=== PATIENT | male | born 1940 | race American Indian/Alaskan Native ===

== ENCOUNTER 2019-02-15 19:18 | Inpatient (IN) | payer MEDICARE, MEDICAID ==
--- NOTE | 2019-02-15 19:46 | Emergency Department Report ---
Blank Doc - Documentation Documentation: This is a 79-year-old male that presents with vomiting and diarrhea. This initial assessment/diagnostic orders/clinical plan/treatment(s) is/are subject to change based on patient's health status, clinical progression and re- assessment by fellow clinical providers in the ED. Further treatment and workup at subsequent clinical providers discretion. Patient/guardians urged not to elope from the ED as their condition may be serious if not clinically assessed and managed. Initial orders include: 1- Patient sent to MAIN ED for further evaluation and treatment 2- labs 3- UA
[2019-02-15 20:29] LABS: Basophils # (Auto) 0.1 K/mm3 (0.0-0.1); Basophils % (Auto) 1.1 % (0.0-1.8); Eosinophils # (Auto) 0.1 K/mm3 (0.0-0.4); Eosinophils % (Auto) 1.5 % (0.0-4.3); Hematocrit 34.2 % (35.5-45.6); Hemoglobin 11.6 gm/dl (11.8-15.2); Lymphocytes # (Auto) 0.9 K/mm3 (1.2-5.4); Mean Corpuscular HGB Conc 34 % (32-34); Mean Corpuscular Volume 91 fl (84-94); Platelet Count 288 K/mm3 (140-440); Red Blood Count 3.77 M/mm3 (3.65-5.03); Red Cell Distribution Width 14.6 % (13.2-15.2)
[2019-02-15 20:48] LABS: Alanine Aminotransferase 11 units/L (7-56); Albumin 3.3 g/dL (3.9-5); BUN/Creatinine Ratio 19; Blood Urea Nitrogen 19 mg/dL (9-20); Calcium 8.9 mg/dL (8.4-10.2); Hemolysis Index 8
--- NOTE | 2019-02-15 20:54 | Emergency Department Report ---
ED N/V/D HPI - General Chief complaint: Nausea/Vomiting/Diarrhea Stated complaint: VOMITTING Time Seen by Provider: 02/15/19 20:45 Source: family Mode of arrival: Ambulatory Limitations: Language Barrier, Altered Mental Status, Physical Limitation, Other - History of Present Illness Initial comments: Patient is a 79-year-old male presents emergency room with complaints of nausea vomiting and diarrhea. History per patient's caregiver. Caregiver states the patient had diarrhea 3 one week ago but has not had diarrhea since. Patient nausea and vomiting started 3 days ago. family c/o wt loss. Patient saw his primary care today and Dr. Beverly recommended the patient come here for evaluation. Patient has not tolerated any by mouth. 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 Patient interacts minimally but the patient is at baseline per the patient's caregiver and family. Patient has a past medical history of hypertension, MR, frequent UTIs, BPH, nonverbal and blindness MD complaint: nausea, vomiting, diarrhea -: Sudden Description of Vomiting: watery Associated Abdominal Pain: No Severity: moderate Associated Symptoms: denies other symptoms - Related Data Home Medications Medication Instructions Recorded Confirmed Last Taken Latanoprost 1 drop OU DAILY 03/04/14 02/16/19 03/05/14 Pilocarpine 4% [Isopto Carpine] 1 drop OU DAILY 03/04/14 02/16/19 03/05/14 Previous Rx's Medication Instructions Recorded Last Taken Type Metoprolol [Lopressor TAB] 25 mg PO BID #60 tablet 03/08/14 Unknown Rx Allergies Allergy/AdvReac Type Severity Reaction Status Date / Time No Known Allergies Allergy Verified 03/04/14 14:44 ED Review of Systems ROS: Stated complaint: VOMITTING Other details as noted in HPI Comment: Unobtainable due to pts medical conditions ED Past Medical Hx - Past Medical History Previous Medical History?: Yes Hx Hypertension: Yes Hx Dementia: Yes 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 Hypertension. BPH. Blind - Surgical History Past Surgical History?: Yes Additional Surgical History: TURP - Family History Family history: no significant - Social History Smoking Status: Never Smoker Substance Use Type: None - Medications Home Medications: Home Medications Medication Instructions Recorded Confirmed Last Taken Type Latanoprost 1 drop OU DAILY 03/04/14 02/16/19 03/05/14 History Pilocarpine 4% [Isopto Carpine] 1 drop OU DAILY 03/04/14 02/16/19 03/05/14 History Metoprolol [Lopressor TAB] 25 mg PO BID #60 tablet 03/08/14 02/16/19 Unknown Rx ED Physical Exam - General Limitations: Language Barrier, Altered Mental Status, Physical Limitation, Other General appearance: alert, in no apparent distress - Head Head exam: Present: atraumatic, normocephalic - Eye Eye exam: Present: normal appearance - ENT ENT exam: Present: mucous membranes moist - Neck Neck exam: Present: normal inspection - Respiratory Respiratory exam: Present: normal lung sounds bilaterally. Absent: respiratory distress - Cardiovascular Cardiovascular Exam: Present: regular rate, normal rhythm. Absent: systolic murmur, diastolic murmur, rubs, gallop - GI/Abdominal GI/Abdominal exam: Present: soft, normal bowel sounds. Absent: distended, tenderness - Rectal Rectal exam: Present: deferred - Extremities Exam Extremities exam: Present: normal inspection - Back Exam Back exam: Present: normal inspection - Neurological Exam Neurological exam: Present: altered - Skin Skin exam: Present: warm, dry, intact, normal color. Absent: rash ED Course Vital Signs 02/15/19 02/15/19 02/15/19 19:45 21:36 22:21 Temperature 98 F Pulse Rate 85 Respiratory 18 Rate Blood Pressure 135/71 114/57 O2 Sat by Pulse 96 98 100 Oximetry 02/15/19 02/15/19 02/15/19 22:30 23:00 23:30 Temperature Pulse Rate 80 79 78 Respiratory 19 17 20 Rate Blood Pressure 120/47 122/41 115/52 O2 Sat by Pulse 100 100 100 Oximetry 02/16/19 02/16/19 00:01 00:30 Temperature Pulse Rate 75 81 Respiratory 17 17 Rate Blood Pressure 105/47 127/61 O2 Sat by Pulse 100 99 Oximetry - Reevaluation(s) Reevaluation #1: I discussed all results with family member. I discussed plan of care with family. Family agrees with plan of care. 02/15/19 23:30 - Consultations Consultation #1: General surgery paged 02/15/19 23:26 Discussed case with general surgery, Dr Bell. General surgery recommends admission to the hospitalist service and repeat series in the morning and enemas 02/15/19 23:51 Consultation #2: Hospitalist consulted for admission. Hospitalist to admit patient. 02/15/19 23:52 ED Medical Decision Making - Lab Data Result diagrams: 02/15/19 20:06 02/15/19 20:06 - Radiology Data Radiology results: report reviewed CT ABDOMEN AND PELVIS WITH CONTRAST INDICATION / CLINICAL INFORMATION: Nausea vomiting and diarrhea. TECHNIQUE: Axial CT images were obtained through the abdomen and pelvis after 100 mL Omnipaque [address] scans at this location are performed using CT dose reduction for ALARA by means of automated exposure control. COMPARISON: CT dated 05/09/16 FINDINGS: LOWER CHEST: No significant abnormality. LIVER: No significant abnormality. GALLBLADDER: Multiple tiny calcified stones are unchanged. No gallbladder inflammation. BILE DUCTS: No significant abnormality. PANCREAS: No significant abnormality. SPLEEN: No significant abnormality. ADRENALS: No significant abnormality. RIGHT KIDNEY and URETER: Small nonobstructing intrarenal stone. No ureteral stone or hydronephrosis. LEFT KIDNEY and URETER: No significant abnormality. STOMACH and SMALL BOWEL: Stomach is moderately dilated with fluid and food material. Gastric dilation is not changed. There is new thickening and edema of the gastric antrum/pylorus. Small bowel is not dilated. COLON: Moderate amount of fecal material in the distal colon and rectum with possible rectal fecal impaction. APPENDIX: Not visualized. PERITONEUM: No free fluid. No free air. No fluid collection. LYMPH NODES: No significant adenopathy. AORTA and ARTERIES: No significant abnormality. IVC and VEINS: No significant abnormality. URINARY BLADDER: Bladder is moderately distended with mild trabeculation of the wall. REPRODUCTIVE ORGANS: No significant abnormality. ADDITIONAL FINDINGS: None. SKELETAL SYSTEM: No significant abnormality. IMPRESSION: 1. Moderate amount of fecal material in the distal colon and rectum with possible rectal fecal impaction. 2. Dilated stomach containing fluid and food material with thickening and edema of the gastric antrum and pylorus possibly representing focal gastritis or peptic ulcer disease. 3. Cholelithiasis without CT evidence for cholecystitis. No change. - Medical Decision Making Patient is 79-year-old male presents emergency with complaints of nausea and vomiting 2 days, weight loss and diarrhea one week ago. Patient had a Patient is unable to provide any historical facts due to his altered mentation and language barrier. Patient had a CT done and shows a colonic obstruction and fecal impaction. Patient given fluids and Zofran. General surgery recommends admission and follow-up abdominal series. Gen. surgery also recommends disimpaction with enemas. Patient's labs unremarkable. - Differential Diagnosis intractable nausea and vomiting. Obstruction. Critical Care Time: Yes Critical care attestation.: If time is entered above; I have spent that time in minutes in the direct care of this critically ill patient, excluding procedure time. Critical Care Time: 35 minutes ED Disposition Clinical Impression: Colonic obstruction, Gastroenteritis, Weight loss, Fecal impaction in rectum, Nonverbal Nausea & vomiting Qualifiers: Vomiting type: unspecified Vomiting Intractability: intractable Qualified Code(s): R11.2 - Nausea with vomiting, unspecified Disposition: DC-09 OP ADMIT IP TO THIS HOSP Is pt being admited?: Yes Does the pt Need Aspirin: No Condition: Critical Time of Disposition: 23:52
--- NOTE | 2019-02-15 22:58 | Cat Scan Report ---
CT ABDOMEN AND PELVIS WITH CONTRAST INDICATION / CLINICAL INFORMATION: Nausea vomiting and diarrhea. TECHNIQUE: Axial CT images were obtained through the abdomen and pelvis after 100 mL Omnipaque [address] scans at this location are performed using CT dose reduction for ALARA by means of automated exposure control. COMPARISON: CT dated 05/09/16 FINDINGS: LOWER CHEST: No significant abnormality. LIVER: No significant abnormality. GALLBLADDER: Multiple tiny calcified stones are unchanged. No gallbladder inflammation. BILE DUCTS: No significant abnormality. PANCREAS: No significant abnormality. SPLEEN: No significant abnormality. ADRENALS: No significant abnormality. RIGHT KIDNEY and URETER: Small nonobstructing intrarenal stone. No ureteral stone or hydronephrosis. LEFT KIDNEY and URETER: No significant abnormality. STOMACH and SMALL BOWEL: Stomach is moderately dilated with fluid and food material. Gastric dilation is not changed. There is new thickening and edema of the gastric antrum/pylorus. Small bowel is not dilated. COLON: Moderate amount of fecal material in the distal colon and rectum with possible rectal fecal im paction. APPENDIX: Not visualized. PERITONEUM: No free fluid. No free air. No fluid collection. LYMPH NODES: No significant adenopathy. AORTA and ARTERIES: No significant abnormality. IVC and VEINS: No significant abnormality. URINARY BLADDER: Bladder is moderately distended with mild trabeculation of the wall. REPRODUCTIVE ORGANS: No significant abnormality. ADDITIONAL FINDINGS: None. SKELETAL SYSTEM: No significant abnormality. IMPRESSION: 1. Moderate amount of fecal material in the distal colon and rectum with possible rectal fecal impact ion. 2. Dilated stomach containing fluid and food material with thickening and edema of the gastric antrum and pylorus possibly representing focal gastritis or peptic ulcer disease. 3. Cholelithiasis without CT evidence for cholecystitis. No change. Signer Name: Zaynab Ramirez MD Signed: 02/15/2019 10:53 PM Workstation Name: [id number]
[2019-02-15] MEDS ORDERED: ZOFRAN ONE (23:22)
[2019-02-15] MEDS ORDERED: NACL 0.9% 1000 ML 1,000 ML ONE (23:22)
[2019-02-16] MEDS ORDERED: TYLENOL PO PRN (00:34)
[2019-02-16] MEDS ORDERED: SODIUM CHLORIDE FLUSH SYRINGE 10 ML IV PRN (00:34)
[2019-02-16] MEDS ORDERED: ZOFRAN IV PRN (00:34)
[2019-02-16] MEDS ORDERED: REGLAN IV PRN (00:34)
--- NOTE | 2019-02-16 00:40 | History and Physical Report ---
History of Present Illness Date of examination: 02/16/19 Date of admission: 02/16/2019 Chief complaint: Nausea, vomiting and diarrhea History of present illness: Patient is a 79-year-old male with PMHx of glaucoma and blindness, Mental retardation, HTN, kidney stones, gall stones, who was brought to the ER with c/o nausea, vomiting and diarrhea x 1 week. Pt is nonverbal therefore cannot provide medical, the history was given by the patient's caregiver who reports the patient had diarrhea 3 times one week ago. The certified caregiver add that the started vomiting started 3 days ago, and had a total of 5 lbs wt loss within 1 week. According to the certified caregiver, pt had not been able to tolerate any PO intake, he was taking to see his PCP (Dr. Beverly) yesterday who recommended that the patient come to the ER for evaluation. Patient has not tolerated any by mouth. In the ER a CT scan of the abdomen showed a moderate amount of fecal material in the distal colon and rectum, possible fecal impaction. Dilated stomach containing fluid and food material with thickening and edema of the gastric antrum and pylori. Pt was initially treated in the ER and admitted for further evaluation and treatment. Past History Past Medical History: hypertension, other (MR, BPH, kidney stones) Past Surgical History: Other (TURP) Social history: no significant social history Family history: no significant family history Medications and Allergies Allergies Allergy/AdvReac Type Severity Reaction Status Date / Time No Known Allergies Allergy Verified 03/04/14 14:44 Home Medications Medication Instructions Recorded Confirmed Last Taken Type Latanoprost 1 drop OU DAILY 03/04/14 02/16/19 03/05/14 History Pilocarpine 4% [Isopto Carpine] 1 drop OU DAILY 03/04/14 02/16/19 03/05/14 History Metoprolol [Lopressor TAB] 25 mg PO BID #60 tablet 03/08/14 02/16/19 Unknown Rx Active Meds: Active Medications Enoxaparin Sodium (Lovenox) 30 mg SUB-Q QDAY EDOUARD Review of Systems ROS unobtainable: due to mental status Exam - Constitutional Vitals: Temp Pulse Resp BP Pulse Ox 98 F 85 18 135/71 96 02/15/19 19:45 02/15/19 19:45 02/15/19 19:45 02/15/19 19:45 02/15/19 19:45 General appearance: Present: no acute distress - Respiratory Respiratory: bilateral: CTA - Cardiovascular Heart Sounds: Present: S1 & S2 - Extremities Extremities: no ischemia, No edema Peripheral Pulses: within normal limits - Abdominal General gastrointestinal: Present: soft, non-tender Male genitourinary: Present: deferred - Rectal Rectal Exam: deferred - Integumentary Integumentary: Present: clear, warm, dry - Musculoskeletal Musculoskeletal: strength equal bilaterally - Psychiatric Psychiatric: other (unable to evaluate) - Neurologic Neurologic: other (unable to evaluate) Results - Labs CBC & Chem 7: 02/15/19 20:06 02/15/19 20:06 Labs: Laboratory Last Values WBC 6.4 K/mm3 (4.5-11.0) 02/15/19 20:06 RBC 3.77 M/mm3 (3.65-5.03) 02/15/19 20:06 Hgb 11.6 gm/dl (11.8-15.2) L 02/15/19 20:06 Hct 34.2 % (35.5-45.6) L 02/15/19 20:06 MCV 91 fl (84-94) 02/15/19 20:06 MCH 31 pg (28-32) 02/15/19 20:06 MCHC 34 % (32-34) 02/15/19 20:06 RDW 14.6 % (13.2-15.2) 02/15/19 20:06 Plt Count 288 K/mm3 (140-440) 02/15/19 20:06 Lymph % (Auto) 14.0 % (13.4-35.0) 02/15/19 20:06 [place] % (Auto) 15.0 % (0.0-7.3) H 02/15/19 20:06 Eos % (Auto) 1.5 % (0.0-4.3) 02/15/19 20:06 Baso % (Auto) 1.1 % (0.0-1.8) 02/15/19 20:06 Lymph # 0.9 K/mm3 (1.2-5.4) L 02/15/19 20:06 [place] # 1.0 K/mm3 (0.0-0.8) H 02/15/19 20:06 Eos # 0.1 K/mm3 (0.0-0.4) 02/15/19 20:06 Baso # 0.1 K/mm3 (0.0-0.1) 02/15/19 20:06 Seg Neutrophils % 68.4 % (40.0-70.0) 02/15/19 20:06 Seg Neutrophils # 4.4 K/mm3 (1.8-7.7) 02/15/19 20:06 Sodium 136 mmol/L (137-145) L 02/15/19 20:06 Potassium 3.9 mmol/L (3.6-5.0) 02/15/19 20:06 Chloride 99.2 mmol/L (98-107) 02/15/19 20:06 Carbon Dioxide 27 mmol/L (22-30) 02/15/19 20:06 14 mmol/L 02/15/19 20:06 BUN 19 mg/dL (9-20) 02/15/19 20:06 1.0 mg/dL (0.8-1.5) 02/15/19 20:06 Estimated GFR > 60 ml/min 02/15/19 20:06 19 % 02/15/19 20:06 Glucose 156 mg/dL (75-100) H 02/15/19 20:06 Calcium 8.9 mg/dL (8.4-10.2) 02/15/19 20:06 0.40 mg/dL (0.1-1.2) 02/15/19 20:06 AST 22 units/L (5-40) 02/15/19 20:06 ALT 11 units/L (7-56) 02/15/19 20:06 67 units/L (35-129) 02/15/19 20:06 6.7 g/dL (6.3-8.2) 02/15/19 20:06 3.3 g/dL (3.9-5) L 02/15/19 20:06 1.0 % 02/15/19 20:06 30 units/L (13-60) 02/15/19 20:06 Assessment and Plan Assessment and plan: 1. Fecal impaction 2. Acute gastritis 3. Nausea and vomiting (due to #1 and 2) 4. Blindness 5. Mental retardation 6. Cholelithiasis 7. Hypertension (stable) 8. Dehydration Plan: Admit to MedSurg Fleet enema/digital removable of impaction PRN IV fluids for hydration Clear liquid diet Resume home meds DVT prophylaxis Patient's plan of care discussed with certified caregiver Patient's condition and plan of care d/w Dr Rg Advance Directives: Yes VTE prophylaxis?: Chemical Plan of care discussed with patient/family: Yes
[2019-02-16] MEDS: PEPCID IV SCH ×2 (02:10→10:02)
[2019-02-16] MEDS: NACL 0.9% 1000 ML 1,000 ML IV SCH ×2 (03:21→19:48)
[2019-02-16] MEDS ORDERED: FLEET PR NR (05:50)
[2019-02-16] MEDS ORDERED: MILK OF MAGNESIA PO NR (05:51)
[2019-02-16] MEDS ORDERED: NACL 0.9% 1000 ML 1,000 ML IV SCH (06:00)
[2019-02-16 07:21] LABS: Bacteria,Urine 1+ /HPF (Negative); Bilirubin,Urine NEG (Negative); Blood,Urine SM (Negative); Color,Urine Yellow (Yellow); Mucus,Urine FEW /HPF; Protein,Urine <15 mg/dL mg/dL (Negative)
--- NOTE | 2019-02-16 09:08 | XRay Report ---
ABDOMINAL SERIES WITH CHEST X-RAY ONE VIEW HISTORY: Fecal and reaction FINDINGS: The stomach appears dilated. Small bowel loops and colon are normal caliber. There is mild fecal retention in the distal colon and rectum but this appears decreased by 50% since yesterday's CT . No evidence for free air or large air-fluid levels. Single view of the chest is unremarkable given rotation to the right. IMPRESSION: Decreased fecal retention by 50%. Dilated stomach Signer Name: George Burt Jr, MD Signed: 02/16/2019 9:04 AM Workstation Name: [id number]
[2019-02-16] MEDS ORDERED: SENOKOT PO SCH (10:00)
[2019-02-16] MEDS ORDERED: LOVENOX SUB-Q SCH (10:00)
[2019-02-16] MEDS: LOPRESSOR PO SCH ×2 (10:02→21:28)
[2019-02-16] MEDS: LOVENOX SUB-Q SCH (10:02)
[2019-02-16] MEDS: SODIUM CHLORIDE FLUSH SYRINGE 10 ML IV SCH ×2 (10:03→21:28)
[2019-02-16] MEDS: ISOPTO CARPINE OU SCH (10:04)
--- NOTE | 2019-02-16 10:31 | Progress Note ---
Assessment and Plan Full consult dictated: 79 y/o Mentally retarded male c/o N&V Abd soft, non tender at present. CT - enlarged stomach with large amount of food debris. no evidence of gastric outlet. also consistent with fecal impaction. surgically stable rec: NPO NG suction. enemas until clear GI eval for possible EGD will follow Chief complaint: Nausea, vomiting and diarrhea History of present illness: Patient is a 79-year-old male with PMHx of glaucoma and blindness, Mental brian rdation, HTN, kidney stones, gall stones, who was brought to the ER with c/o nausea, vomiting and diarrhea x 1 week. Pt is nonverbal therefore cannot provide medical, the history was given by the patient's caregiver who reports the patient had diarrhea 3 times one week ago. The direct support professional caregiver add that the started vomiting started 3 days ago, and had a total of 5 lbs wt loss within 1 week. According to the direct support professional caregiver, pt had not been able to tolerate any PO intake, he was taking to see his PCP (Dr. Beverly) yesterday who recommended that the patient come to the ER for evaluation. Patient has not tolerated any by mouth. In the ER a CT scan of the abdomen showed a moderate amount of fecal material in the distal colon and rectum, possible fecal impaction. Dilated stomach containing fluid and food material with thickening and edema of the gastric antrum and pylori. Pt was initially treated in the ER and admitted for further evaluation and treatment. Past History Past Medical History: hypertension, other (MR, BPH, kidney stones) Past Surgical History: Other (TURP) Social history: no significant social history Family history: no significant family history Selected Entries 02/16/19 02/16/19 02/16/19 08:00 08:03 09:38 Temperature 97.3 F L Pulse Rate 100 H O2 Sat by Pulse 98 Oximetry Blood Pressure 120/53 [Left] Laboratory Tests 02/15/19 20:06 WBC 6.4 Hgb 11.6 L Hct 34.2 L Objective Vital Signs - 12hr 02/15/19 02/15/19 02/15/19 22:30 23:00 23:30 Temperature Pulse Rate 80 79 78 Respiratory 19 17 20 Rate Blood Pressure 120/47 122/41 115/52 Blood Pressure [Left] O2 Sat by Pulse 100 100 100 Oximetry 02/16/19 02/16/1919 00:01 00:30 00:51 Temperature Pulse Rate 75 81 73 Respiratory 17 17 15 Rate Blood Pressure 105/47 127/61 127/61 Blood Pressure [Left] O2 Sat by Pulse 100 99 99 Oximetry 02/16/19 02/16/19 02/16/19 01:01 01:11 01:21 Temperature Pulse Rate 77 69 72 Respiratory 16 16 17 Rate Blood Pressure 92/49 92/49 92/49 Blood Pressure [Left] O2 Sat by Pulse 100 100 100 Oximetry 02/16/19 02/16/19 02/16/19 01:25 01:30 01:41 Temperature Pulse Rate 71 80 Respiratory 16 20 15 Rate Blood Pressure 133/54 92/49 Blood Pressure [Left] O2 Sat by Pulse 99 100 99 Oximetry 02/16/19 02/16/19 02/16/19 01:51 02:01 02:11 Temperature Pulse Rate 67 82 75 Respiratory 18 17 15 Rate Blood Pressure 92/49 97/37 133/54 Blood Pressure [Left] O2 Sat by Pulse 99 98 99 Oximetry 02/16/19 02/16/19 02/16/19 02:40 08:00 08:03 Temperature 97.3 F L 97.3 F L Pulse Rate 85 100 H Respiratory 22 22 Rate Blood Pressure 119/66 120/53 Blood Pressure 120/53 [Left] O2 Sat by Pulse 100 98 Oximetry 02/16/19 09:38 Temperature Pulse Rate Respiratory Rate Blood Pressure Blood Pressure [Left] O2 Sat by Pulse 98 Oximetry - Labs 02/15/19 20:06 02/15/19 20:06 Diabetes panel 02/15/19 Range/Units 20:06 Sodium 136 L (137-145) mmol/L Potassium 3.9 (3.6-5.0) mmol/L Chloride 99.2 (98-107) mmol/L Carbon Dioxide 27 (22-30) mmol/L BUN 19 (9-20) mg/dL Creatinine 1.0 (0.8-1.5) mg/dL Glucose 156 H (75-100) mg/dL Calcium 8.9 (8.4-10.2) mg/dL AST 22 (5-40) units/L ALT 11 (7-56) units/L Alkaline Phosphatase 67 (35-129) units/L Total Protein 6.7 (6.3-8.2) g/dL Albumin 3.3 L (3.9-5) g/dL Calcium panel 02/15/19 Range/Units 20:06 Calcium 8.9 (8.4-10.2) mg/dL Albumin 3.3 L (3.9-5) g/dL Pituitary panel 02/15/19 Range/Units 20:06 Sodium 136 L (137-145) mmol/L Potassium 3.9 (3.6-5.0) mmol/L Chloride 99.2 (98-107) mmol/L Carbon Dioxide 27 (22-30) mmol/L BUN 19 (9-20) mg/dL Creatinine 1.0 (0.8-1.5) mg/dL Glucose 156 H (75-100) mg/dL Calcium 8.9 (8.4-10.2) mg/dL Adrenal panel 02/15/19 Range/Units 20:06 Sodium 136 L (137-145) mmol/L Potassium 3.9 (3.6-5.0) mmol/L Chloride 99.2 (98-107) mmol/L Carbon Dioxide 27 (22-30) mmol/L BUN 19 (9-20) mg/dL Creatinine 1.0 (0.8-1.5) mg/dL Glucose 156 H (75-100) mg/dL Calcium 8.9 (8.4-10.2) mg/dL Total Bilirubin 0.40 (0.1-1.2) mg/dL AST 22 (5-40) units/L ALT 11 (7-56) units/L Alkaline Phosphatase 67 (35-129) units/L Total Protein 6.7 (6.3-8.2) g/dL Albumin 3.3 L (3.9-5) g/dL
[2019-02-16] MEDS ORDERED: FLEET PR ONE (12:30)
--- NOTE | 2019-02-16 14:09 | Gastroenterology Consultation ---
History of Present Illness - Reason for Consult Consult date: 02/16/19 gastric stasis Requesting physician: BRENDEN BASURTO - History of Present Illness Patient is a 79 y/o male with PMH of HTN, glaucoma/blindness, mental retardation, kidney stones, BPH, and gallstones who was brought to ED for evaluation of N/V, diarrhea, and inability to tolerate PO x 1 week. Upon admi ssion, abd CT showed a moderate amount of fecal material in the distal colon/rectum, possible fecal impaction, and dilated stomach containing fluid/food material with thickening and edema of the gastric antrum/pylorus (focal gastritis vs PUD?) to which GI has been consulted. Surgery following. This afternoon patient was resting in bed w/o acute distress. Patient noted to be nonverbal and unable to provide history. History obtained via chart review and by caregiver (Tom) over the phone. CG reports patient usually has ~2 BMs per day, but states that he had a similar episode with constipation last year requiring hospitalization, however patient was not discharged with any recommendations for daily bowel regimen medications. No NSAID use or hx of PUD. No known prior EGD. Last colonoscopy unknown. Per nursing, patient has received enemas x 3 with good results (last BM with large solid stool; no signs of bleeding; tolerated diet this am w/o N/V). Past History Past Medical History: other (as per HPI) Past Surgical History: Other (TURP) Social history: no significant social history, other ([facility] resident) Family history: no significant family history Medications and Allergies Allergies Allergy/AdvReac Type Severity Reaction Status Date / Time No Known Allergies Allergy Verified 03/04/14 14:44 Home Medications Medication Instructions Recorded Confirmed Last Taken Type Latanoprost 1 drop OU DAILY 03/04/14 02/16/19 03/05/14 History Pilocarpine 4% [Isopto Carpine] 1 drop OU DAILY 03/04/14 02/16/19 03/05/14 History Metoprolol [Lopressor TAB] 25 mg PO BID #60 tablet 03/08/14 02/16/19 Unknown Rx Active Meds: Active Medications Enoxaparin Sodium (Lovenox) 40 mg SUB-Q QDAY@1000 [facility] Last Admin: 02/16/19 10:02 Dose: 40 mg Documented by: Famotidine (Pepcid) 20 mg IV BID [facility] Last Admin: 02/16/19 10:02 Dose: 20 mg Documented by: Sodium Chloride (Nacl 0.9% 1000 Ml) 1,000 mls @ 75 mls/hr IV DIRECT [facility] Last Admin: 02/16/19 03:21 Dose: 75 mls/hr Documented by: Latanoprost (Latanoprost 0.005%) 1 drops OU QPM [facility] Metoclopramide HCl (Reglan) 10 mg IV Q6H PRN PRN Reason: Nausea And Vomiting Metoprolol Tartrate (Lopressor) 25 mg PO BID [facility] Last Admin: 02/16/19 10:02 Dose: 25 mg Documented by: Ondansetron HCl (Zofran) 4 mg IV Q8H PRN PRN Reason: Nausea And Vomiting Pilocarpine HCl (Isopto Carpine) 1 drops OU DAILY [facility] Last Admin: 02/16/19 10:04 Dose: 1 drops Documented by: Sodium Chloride (Sodium Chloride Flush Syringe 10 Ml) 10 ml IV BID [facility] Last Admin: 02/16/19 10:03 Dose: 10 ml Documented by: Sodium Chloride (Sodium Chloride Flush Syringe 10 Ml) 10 ml IV PRN PRN PRN Reason: LINE FLUSH medications review/updated as required Review of Systems - Review of Systems ROS unobtainable: due to mental status Exam - Constitutional Vital Signs: Temp Pulse Resp BP Pulse Ox 97.3 F L 104 H 22 120/53 98 02/16/19 08:03 02/16/19 10:00 02/16/19 08:03 02/16/19 08:03 02/16/19 09:38 General appearance: no acute distress - Respiratory Respiratory effort: normal - Cardiovascular Rhythm: other (tachycardia) - Gastrointestinal General gastrointestinal: Present: soft, distended (mildly), hypoactive bowel sounds - Labs CBC & Chem 7: 02/15/19 20:06 02/15/19 20:06 Lab Results: Laboratory Results - last 24 hr 02/15/19 02/15/19 02/16/19 20:06 20:06 02:00 WBC 6.4 RBC 3.77 Hgb 11.6 L Hct 34.2 L MCV 91 MCH 31 MCHC 34 RDW 14.6 Plt Count 288 Lymph % (Auto) 14.0 [place] % (Auto) 15.0 H Eos % (Auto) 1.5 Baso % (Auto) 1.1 Lymph # 0.9 L [place] # 1.0 H Eos # 0.1 Baso # 0.1 Seg Neutrophils % 68.4 Seg Neutrophils # 4.4 Sodium 136 L Potassium 3.9 Chloride 99.2 Carbon Dioxide 27 Anion Gap 14 BUN 19 Creatinine 1.0 Estimated GFR > 60 BUN/Creatinine Ratio 19 Glucose 156 H Calcium 8.9 Total Bilirubin 0.40 AST 22 ALT 11 Alkaline Phosphatase 67 Total Protein 6.7 Albumin 3.3 L Albumin/Globulin Ratio 1.0 Lipase 30 Urine Color Yellow Urine Turbidity Slightly-cloudy Urine pH 6.0 Ur Specific [place] 1.034 H Urine Protein <15 mg/dl Urine Glucose (UA) Neg Urine Ketones Neg Urine Blood Sm Urine Nitrite Neg Urine Bilirubin Neg Urine Urobilinogen 2.0 Ur Leukocyte Esterase Tr Urine WBC (Auto) 22.0 H Urine RBC (Auto) 13.0 U Epithel Cells (Auto) 3.0 Urine Bacteria (Auto) 1+ Urine Mucus Few Urine Yeast (Budding) 1+ Assessment and Plan 1.fecal impaction/constipation 2.abnormal CT -afebrile -WBC WNL -H/H 11.6/34.2-no active signs of bleeding -LFTs WNL -abd CT showed a moderate amount of fecal material in the distal colon/rectum, possible fecal impaction, and dilated stomach containing fluid/food material with thickening and edema of the gastric antrum/pylorus (focal gastritis vs PUD?) -s/p enemas x 3 with good results per nursing -KUMariana this am with improvement -surgery following with recommendations for NPO with placement of NGT to LIS and enemas til clear -will schedule for EGD tomorrow for further evaluation of above CT results (r/o GOO, PUD, or other GI pathology) -continue PPI and supportive care -patient will need to be on daily bowel regimen for constipation upon d/c -will follow
--- NOTE | 2019-02-16 16:05 | Progress Note ---
Assessment and Plan Assessment and plan: Patient is a 79-year-old male with PMHx of glaucoma and blindness, Mental retardation, HTN, kidney stones, gall stones, who was brought to the ER with c/o nausea, vomiting and diarrhea x 1 week. Pt is nonverbal therefore cannot provide medical, the history was given by the patient's caregiver who reports the patient had diarrhea 3 times one week ago. The child care giver add that the started vomiting started 3 days ago, and had a total of 5 lbs wt loss within 1 week. According to the child care giver, pt had not been able to tolerate any PO intake, he was taking to see his PCP (Dr. Beverly) yesterday who recommended that the patient come to the ER for evaluation. Patient has not tolerated any by mouth. In the ER a CT scan of the abdomen showed a moderate amount of fecal material in the distal colon and rectum, possible fecal impaction. Dilated stomach containing fluid and food material with thickening and edema of the gastric antrum and pylori. Pt was initially treated in the ER and admitted for further evaluation and treatment. * Abd CT showed a moderate amount of fecal material in the distal colon/rectum, possible fecal impaction, and dilated stomach containing fluid/food material with thickening and edema of the gastric antrum/pylorus (focal gastritis vs PUD? 1. Fecal impaction 2. Acute gastritis 3. Nausea and vomiting (due to #1 and 2) 4. Blindness 5. Mental retardation 6. Cholelithiasis 7. Hypertension (stable) 8. Dehydration 9. Acute Cystitis Plan: Continue supportive care Fleet enema/digital removable of impaction PRN Surgery and GI input noted IV fluids for hydration Start on abx. Clear liquid diet NPO with placement of NGT to LIS and enemas til clear Per GI Will schedule for EGD tomorrow for further evaluation of above CT results (r/o GOO, PUD, or other GI pathology) Resume home meds DVT prophylaxis Patient's plan of care discussed with child care giver s/p enemas x 3 with good results per nursing KUB this am with improvement Discussed with [facility] staff. History Interval history: Patient seen and examined, confused, which is baseline. Hospitalist Physical - Physical exam Narrative exam: General appearance: Present: no acute distress, Contracted - Respiratory Respiratory: bilateral: CTA - Cardiovascular Heart Sounds: Present: S1 & S2 - Extremities Extremities: no ischemia, No edema Peripheral Pulses: within normal limits - Abdominal General gastrointestinal: Present: soft, non-tender Male genitourinary: Present: deferred - Rectal Rectal Exam: deferred - Integumentary Integumentary: Present: clear, warm, dry - Musculoskeletal Musculoskeletal: strength equal bilaterally - Psychiatric Psychiatric: other (unable to evaluate) - Neurologic Neurologic: other (unable to evaluate) - Constitutional Vitals: Temp Pulse Resp BP Pulse Ox 97.3 F L 104 H 22 120/53 98 02/16/19 08:03 02/16/19 10:00 02/16/19 08:03 02/16/19 08:03 02/16/19 09:38 General appearance: Present: no acute distress Results - Labs CBC & Chem 7: 02/15/19 20:06 02/15/19 20:06 Labs: Laboratory Last Values WBC 6.4 K/mm3 (4.5-11.0) 02/15/19 20:06 RBC 3.77 M/mm3 (3.65-5.03) 02/15/19 20:06 Hgb 11.6 gm/dl (11.8-15.2) L 02/15/19 20:06 Hct 34.2 % (35.5-45.6) L 02/15/19 20:06 MCV 91 fl (84-94) 02/15/19 20:06 MCH 31 pg (28-32) 02/15/19 20:06 MCHC 34 % (32-34) 02/15/19 20:06 RDW 14.6 % (13.2-15.2) 02/15/19 20:06 Plt Count 288 K/mm3 (140-440) 02/15/19 20:06 Lymph % (Auto) 14.0 % (13.4-35.0) 02/15/19 20:06 [place] % (Auto) 15.0 % (0.0-7.3) H 02/15/19 20:06 Eos % (Auto) 1.5 % (0.0-4.3) 02/15/19 20:06 Baso % (Auto) 1.1 % (0.0-1.8) 02/15/19 20:06 Lymph # 0.9 K/mm3 (1.2-5.4) L 02/15/19 20:06 [place] # 1.0 K/mm3 (0.0-0.8) H 02/15/19 20:06 Eos # 0.1 K/mm3 (0.0-0.4) 02/15/19 20:06 Baso # 0.1 K/mm3 (0.0-0.1) 02/15/19 20:06 Seg Neutrophils % 68.4 % (40.0-70.0) 02/15/19 20:06 Seg Neutrophils # 4.4 K/mm3 (1.8-7.7) 02/15/19 20:06 Sodium 136 mmol/L (137-145) L 02/15/19 20:06 Potassium 3.9 mmol/L (3.6-5.0) 02/15/19 20:06 Chloride 99.2 mmol/L (98-107) 02/15/19 20:06 Carbon Dioxide 27 mmol/L (22-30) 02/15/19 20:06 14 mmol/L 02/15/19 20:06 BUN 19 mg/dL (9-20) 02/15/19 20:06 1.0 mg/dL (0.8-1.5) 02/15/19 20:06 Estimated GFR > 60 ml/min 02/15/19 20:06 19 % 02/15/19 20:06 Glucose 156 mg/dL (75-100) H 02/15/19 20:06 Calcium 8.9 mg/dL (8.4-10.2) 02/15/19 20:06 0.40 mg/dL (0.1-1.2) 02/15/19 20:06 AST 22 units/L (5-40) 02/15/19 20:06 ALT 11 units/L (7-56) 02/15/19 20:06 67 units/L (35-129) 02/15/19 20:06 6.7 g/dL (6.3-8.2) 02/15/19 20:06 3.3 g/dL (3.9-5) L 02/15/19 20:06 1.0 % 02/15/19 20:06 30 units/L (13-60) 02/15/19 20:06 Yellow (Yellow) 02/16/19 02:00 Slightly-cloudy (Clear) 02/16/19 02:00 6.0 (5.0-7.0) 02/16/19 02:00 Ur Specific [place] 1.034 (1.003-1.030) H 02/16/19 02:00 <15 mg/dl mg/dL (Negative) 02/16/19 02:00 Neg mg/dL (Negative) 02/16/19 02:00 Neg mg/dL (Negative) 02/16/19 02:00 Sm (Negative) 02/16/19 02:00 Neg (Negative) 02/16/19 02:00 Neg (Negative) 02/16/19 02:00 2.0 mg/dL (<2.0) 02/16/19 02:00 Ur Leukocyte Esterase Tr (Negative) 02/16/19 02:00 22.0 /HPF (0.0-6.0) H 02/16/19 02:00 13.0 /HPF (0.0-6.0) 02/16/19 02:00 U Epithel Cells (Auto) 3.0 /HPF (0-13.0) 02/16/19 02:00 1+ /HPF (Negative) 02/16/19 02:00 Few /HPF 02/16/19 02:00 1+ /HPF 02/16/19 02:00 Active Medications - Current Medications Current Medications: Generic Name Dose Route Start Last Admin Trade Name Freq PRN Reason Stop Dose Admin Enoxaparin Sodium 40 mg 02/16/19 10:00 02/16/19 10:02 Lovenox SUB-Q 40 mg QDAY@1000 [facility] Administration Famotidine 20 mg 02/16/19 01:00 02/16/19 10:02 Pepcid IV 20 mg BID [facility] Administration Sodium Chloride 1,000 mls @ 75 mls/hr 02/16/19 01:00 02/16/19 03:21 Nacl 0.9% 1000 Ml IV 75 mls/hr DIRECT [facility] Administration Latanoprost 1 drops 02/16/19 18:00 Latanoprost 0.005% OU QPM [facility] Metoclopramide HCl 10 mg 02/16/19 00:34 Reglan IV Q6H PRN Nausea And Vomiting Metoprolol Tartrate 25 mg 02/16/19 10:00 02/16/19 10:02 Lopressor PO 25 mg BID [facility] Administration Ondansetron HCl 4 mg 02/16/19 00:34 Zofran IV Q8H PRN Nausea And Vomiting Pilocarpine HCl 1 drops 02/16/19 10:00 02/16/19 10:04 Isopto Carpine OU 1 drops DAILY [facility] Administration Sodium Chloride 10 ml 02/16/19 10:00 02/16/19 10:03 Sodium Chloride Flush Syringe 10 Ml IV 10 ml BID [facility] Administration Sodium Chloride 10 ml 02/16/19 00:34 Sodium Chloride Flush Syringe 10 Ml IV PRN PRN LINE FLUSH
--- NOTE | 2019-02-16 17:11 | Consultation ---
REASON FOR CONSULTATION: Nausea and vomiting. Also rule out possible fecal impaction. HISTORY OF PRESENT ILLNESS: The patient is a 79-year-old mentally retarded blind gentleman who is being admitted through the ER with a chief complaint of nausea and vomiting and some diarrhea. The patient's history is being obtained through his caregiver. PAST MEDICAL HISTORY: Again pertinent for blindness as well as hypertension, mental retardation, and glaucoma. PAST SURGICAL HISTORY: Negative. ALLERGIES: No known allergies. MEDICATIONS: Include eyedrops and metoprolol. FAMILY HISTORY: Unknown. SOCIAL HISTORY: No smoking or drinking. PHYSICAL EXAMINATION: GENERAL: At this time reveals the patient to be awake and alert, appears to be in no acute distress. VITAL SIGNS: Shown to be afebrile with a temperature of 97.3, blood pressure is 120/53, pulse of 85 and respirations of 20. ABDOMEN: Examination of the abdomen reveals to be soft and nontender in all 4 quadrants at this time. Bowel sounds are present. LABORATORY DATA: Lab work at present includes a CBC, which shows a white count of 6.4, H and H is 11.6 and 34.2. Electrolytes were all within normal limits including a potassium of 3.9. LFTs are also all within normal limits. Lipase is also normal at 30. A CT scan of the abdomen has been performed, which I have reviewed with the radiologist Dr. Burt. Stomach is quite dilated and thickened. There is also a large amount of debris within the gastric lumen. There is, however, no evidence of any gastric outlet obstruction. CT also shows a significant amount of stool throughout the colon including the rectosigmoid area. IMPRESSION: 1. At this time is that of a 79-year-old mentally retarded blind gentleman with recent onset of nausea and vomiting, rule out fecal impaction. 2. Rule out gastroparesis versus possible peptic ulcer disease or gastric outlet obstruction. RECOMMENDATIONS: At this time, would keep the patient n.p.o., begin NG suction. Also give enemas until clear. We will obtain GI evaluation for possible EGD. I will follow with you. Thank you very much for consultation. JOB# [id number] JOSE RAFAEL/MICHELLE
[2019-02-16] MEDS: ROCEPHIN/NS 1 GM/50 ML 1 GM/50 ML BAG IV SCH (19:48)
[2019-02-16] MEDS: LATANOPROST 0.005% OU SCH (20:02)
[2019-02-16] MEDS: PROTONIX IV SCH (21:28)
[2019-02-17 06:27] LABS: INR 1.06 (0.87-1.13)
--- NOTE | 2019-02-17 08:48 | XRay Report ---
ABDOMINAL SERIES 3 VIEWS INDICATION: sbo. COMPARISON: One day prior. FINDINGS: Esophagogastric tube has been placed. The tip is in the stomach with side port at the diaphragmatic h iatus. No acute findings are seen on the included chest radiograph. Diffuse colonic distention is again noted. Large amount of fecal material is noted at the rectum. Mil dly dilated loops of small bowel are again noted. No definite free air is identified. IMPRESSION: 1. Interval placement of esophagogastric tube. 2. Diffuse colonic distention with probable rectal fecal impaction. 3. If there is clinical concern for free air, lateral decubitus view would be useful. Signer Name: Sandor Gabriel MD Signed: 02/17/2019 8:44 AM Workstation Name: [id number]
[2019-02-17] MEDS: ROCEPHIN/NS 1 GM/50 ML 1 GM/50 ML BAG IV SCH (09:36)
[2019-02-17] MEDS: PROTONIX IV SCH ×2 (09:38→21:22)
[2019-02-17] MEDS: ISOPTO CARPINE OU SCH (09:38)
--- NOTE | 2019-02-17 09:39 | Progress Note ---
Assessment and Plan Assessment and plan: Patient is a 79-year-old male with PMHx of glaucoma and blindness, Mental retardation, HTN, kidney stones, gall stones, who was brought to the ER with c/o nausea, vomiting and diarrhea x 1 week. Pt is nonverbal therefore cannot provide medical, the history was given by the patient's caregiver who reports the patient had diarrhea 3 times one week ago. The home day care provider add that the started vomiting started 3 days ago, and had a total of 5 lbs wt loss within 1 week. According to the home day care provider, pt had not been able to tolerate any PO intake, he was taking to see his PCP (Dr. Beverly) yesterday who recommended that the patient come to the ER for evaluation. Patient has not tolerated any by mouth. In the ER a CT scan of the abdomen showed a moderate amount of fecal material in the distal colon and rectum, possible fecal impaction. Dilated stomach containing fluid and food material with thickening and edema of the gastric antrum and pylori. Pt was initially treated in the ER and admitted for further evaluation and treatment. * Abd CT showed a moderate amount of fecal material in the distal colon/rectum, possible fecal impaction, and dilated stomach containing fluid/food material with thickening and edema of the gastric antrum/pylorus (focal gastritis vs PUD? 1. Fecal impaction/Severe Constipation 2. Acute gastritis 3. Nausea and vomiting (due to #1 and 2) 4. Blindness 5. Mental retardation 6. Cholelithiasis 7. Hypertension (stable) 8. Dehydration 9. Acute Cystitis Plan: Continue supportive care Fleet enema/digital removable of impaction PRN Surgery and GI input noted bd CT showed a moderate amount of fecal material in the distal colon/rectum, possible fecal impaction, and dilated stomach containing fluid/food material with thickening and edema of the gastric antrum/pylorus (focal gastritis vs PUD?) Continue enema EGD for am keep NPO with placement of NGT to LIS and enemas til clear Resume home meds DVT prophylaxis Patient's plan of care discussed with home day care provider s/p enemas x 3 with good results per nursing KUB this am with improvement Discussed with Personal custodial staff. History Interval history: Patient seen and examined, confused, which is baseline. although caregiver states patient able to give his own consent Hospitalist Physical - Physical exam Narrative exam: General appearance: Present: no acute distress, Contracted - Respiratory Respiratory: bilateral: CTA - Cardiovascular Heart Sounds: Present: S1 & S2 - Extremities Extremities: no ischemia, No edema Peripheral Pulses: within normal limits - Abdominal General gastrointestinal: Present: soft, non-tender Male genitourinary: Present: deferred - Rectal Rectal Exam: deferred - Integumentary Integumentary: Present: clear, warm, dry - Musculoskeletal Musculoskeletal: strength equal bilaterally - Psychiatric Psychiatric: other (unable to evaluate) - Neurologic Neurologic: other (unable to evaluate) - Constitutional Vitals: Temp Pulse Resp BP Pulse Ox 100.0 F H 102 H 18 120/66 95 02/17/19 07:42 02/17/19 07:42 02/17/19 07:42 02/17/19 07:42 02/17/19 09:00 General appearance: Present: no acute distress Results - Labs CBC & Chem 7: 02/15/19 20:06 02/15/19 20:06 Labs: Laboratory Last Values WBC 6.4 K/mm3 (4.5-11.0) 02/15/19 20:06 RBC 3.77 M/mm3 (3.65-5.03) 02/15/19 20:06 Hgb 11.6 gm/dl (11.8-15.2) L 02/15/19 20:06 Hct 34.2 % (35.5-45.6) L 02/15/19 20:06 MCV 91 fl (84-94) 02/15/19 20:06 MCH 31 pg (28-32) 02/15/19 20:06 MCHC 34 % (32-34) 02/15/19 20:06 RDW 14.6 % (13.2-15.2) 02/15/19 20:06 Plt Count 288 K/mm3 (140-440) 02/15/19 20:06 Lymph % (Auto) 14.0 % (13.4-35.0) 02/15/19 20:06 [place] % (Auto) 15.0 % (0.0-7.3) H 02/15/19 20:06 Eos % (Auto) 1.5 % (0.0-4.3) 02/15/19 20:06 Baso % (Auto) 1.1 % (0.0-1.8) 02/15/19 20:06 Lymph # 0.9 K/mm3 (1.2-5.4) L 02/15/19 20:06 [place] # 1.0 K/mm3 (0.0-0.8) H 02/15/19 20:06 Eos # 0.1 K/mm3 (0.0-0.4) 02/15/19 20:06 Baso # 0.1 K/mm3 (0.0-0.1) 02/15/19 20:06 Seg Neutrophils % 68.4 % (40.0-70.0) 02/15/19 20:06 Seg Neutrophils # 4.4 K/mm3 (1.8-7.7) 02/15/19 20:06 PT 13.5 Sec. (12.2-14.9) 02/17/19 05:24 INR 1.06 (0.87-1.13) 02/17/19 05:24 Sodium 136 mmol/L (137-145) L 02/15/19 20:06 Potassium 3.9 mmol/L (3.6-5.0) 02/15/19 20:06 Chloride 99.2 mmol/L (98-107) 02/15/19 20:06 Carbon Dioxide 27 mmol/L (22-30) 02/15/19 20:06 14 mmol/L 02/15/19 20:06 BUN 19 mg/dL (9-20) 02/15/19 20:06 1.0 mg/dL (0.8-1.5) 02/15/19 20:06 Estimated GFR > 60 ml/min 02/15/19 20:06 19 % 02/15/19 20:06 Glucose 156 mg/dL (75-100) H 02/15/19 20:06 Calcium 8.9 mg/dL (8.4-10.2) 02/15/19 20:06 0.40 mg/dL (0.1-1.2) 02/15/19 20:06 AST 22 units/L (5-40) 02/15/19 20:06 ALT 11 units/L (7-56) 02/15/19 20:06 67 units/L (35-129) 02/15/19 20:06 6.7 g/dL (6.3-8.2) 02/15/19 20:06 3.3 g/dL (3.9-5) L 02/15/19 20:06 1.0 % 02/15/19 20:06 30 units/L (13-60) 02/15/19 20:06 Yellow (Yellow) 02/16/19 02:00 Slightly-cloudy (Clear) 02/16/19 02:00 6.0 (5.0-7.0) 02/16/19 02:00 Ur Specific [place] 1.034 (1.003-1.030) H 02/16/19 02:00 <15 mg/dl mg/dL (Negative) 02/16/19 02:00 Neg mg/dL (Negative) 02/16/19 02:00 Neg mg/dL (Negative) 02/16/19 02:00 Sm (Negative) 02/16/19 02:00 Neg (Negative) 02/16/19 02:00 Neg (Negative) 02/16/19 02:00 2.0 mg/dL (<2.0) 02/16/19 02:00 Ur Leukocyte Esterase Tr (Negative) 02/16/19 02:00 22.0 /HPF (0.0-6.0) H 02/16/19 02:00 13.0 /HPF (0.0-6.0) 02/16/19 02:00 U Epithel Cells (Auto) 3.0 /HPF (0-13.0) 02/16/19 02:00 1+ /HPF (Negative) 02/16/19 02:00 Few /HPF 02/16/19 02:00 1+ /HPF 02/16/19 02:00 Active Medications - Current Medications Current Medications: Generic Name Dose Route Start Last Admin Trade Name Freq PRN Reason Stop Dose Admin Enoxaparin Sodium 40 mg 02/16/19 10:00 02/16/19 10:02 Lovenox SUB-Q 40 mg QDAY@1000 [facility] Administration Sodium Chloride 1,000 mls @ 75 mls/hr 02/16/19 01:00 02/16/19 19:48 Nacl 0.9% 1000 Ml IV 75 mls/hr DIRECT [facility] Administration Ceftriaxone Sodium 1 gm in 50 mls @ 100 mls/hr 02/16/19 17:00 02/17/19 09:36 Rocephin/Ns 1 Gm/50 Ml IV 100 mls/hr Q24HR [facility] Administration Protocol Latanoprost 1 drops 02/16/19 18:00 02/16/19 20:02 Latanoprost 0.005% OU 1 drops QPM [facility] Administration Metoclopramide HCl 10 mg 02/16/19 00:34 Reglan IV Q6H PRN Nausea And Vomiting Metoprolol Tartrate 25 mg 02/16/19 10:00 02/16/19 21:28 Lopressor PO 25 mg BID [facility] Administration Ondansetron HCl 4 mg 02/16/19 00:34 Zofran IV Q8H PRN Nausea And Vomiting Pantoprazole Sodium 40 mg 02/16/19 22:00 02/17/19 09:38 Protonix IV 40 mg BID [facility]OU[facility] Administration Pilocarpine HCl 1 drops 02/16/19 10:00 02/17/19 09:38 Isopto Carpine OU 1 drops DAILY [facility] Administration Sodium Chloride 10 ml 02/16/19 10:00 02/16/19 21:28 Sodium Chloride Flush Syringe 10 Ml IV 10 ml BID [facility] Administration Sodium Chloride 10 ml 02/16/19 00:34 Sodium Chloride Flush Syringe 10 Ml IV PRN PRN LINE FLUSH Nutrition/Malnutrition Assess - Dietary Evaluation Nutrition/Malnutrition Findings: Nutrition Notes Start: 02/16/19 16:40 Freq: Status: Active Protocol: Document 02/16/19 16:40 RM (Rec: 02/16/19 16:44 RM [id number]) Nutrition Notes Need for Assessment generated from: [facility] Initial or Follow up Brief Note Other Pertinent Diagnosis Mental retardation, Gallstones ,N/V X 3 days,Nonverbal,Fecal impaction,Blind Current Diet Cardiac/Consistent CHO Labs/Tests Reviewed Pertinent Medications Reviewed Height 5 ft 4 in Weight 58.513 kg [place] Body Weight (kg) 59.09 BMI 22.1 Subjective/Other Information Screened for malnutrition. Per tech pt ate all of breakfast. Noted lunch at bedside w/everything but the salad eaten. Denied pt vomiting. No temporal or orbital wasting . Burn Absent Trauma Absent Nutrition Intervention Revisit per MD consult or patient Sign Off request: - Attestation Statement I have reviewed and agreed w/ Malnutrition eval & tx plan: Yes
[2019-02-17] MEDS: LOVENOX SUB-Q SCH (09:42)
[2019-02-17] MEDS: SODIUM CHLORIDE FLUSH SYRINGE 10 ML IV SCH ×2 (09:49→21:23)
[2019-02-17] MEDS: LOPRESSOR PO SCH ×2 (09:55→21:30)
[2019-02-17] MEDS ORDERED: TYLENOL PR ONE (10:00)
--- NOTE | 2019-02-17 10:51 | Progress Note ---
Assessment and Plan Pt status quo. very small ng in place Abd non tender but still distended Abd series - rectal fecal impaction still noted. ileus pattern with fair amt of air still noted throughout colon proximal to impaction stable change NG to a 16 ro 18 fr repeat enemas today awaiting EGD (possibly today?) Selected Entries 02/17/19 02/17/19 07:42 09:55 Temperature 100.0 F H Pulse Rate 84 Respiratory 18 Rate Blood Pressure 131/67 Objective Vital Signs - 12hr 02/17/19 02/17/19 02/17/19 00:35 00:37 05:03 Temperature 99.6 F Pulse Rate Respiratory Rate Blood Pressure 136/70 133/61 Blood Pressure [Left] O2 Sat by Pulse Oximetry 02/17/19 02/17/19 02/17/19 06:00 07:42 09:00 Temperature 98.2 F 100.0 F H Pulse Rate 98 H 102 H Respiratory 20 18 Rate Blood Pressure 120/66 Blood Pressure 133/61 [Left] O2 Sat by Pulse 100 96 95 Oximetry 02/17/19 02/17/19 09:35 09:55 Temperature Pulse Rate 84 Respiratory Rate Blood Pressure 131/67 131/67 Blood Pressure [Left] O2 Sat by Pulse Oximetry - Labs 02/15/19 20:06 02/15/19 20:06
--- NOTE | 2019-02-17 12:13 | Gastroenterology Progress Note ---
Assessment and Plan 1.fecal impaction/constipation 2. Nausea/vomiting - concerning for GOO, PUD, -abd CT showed a moderate amount of fecal material in the distal colon/rectum, possible fecal impaction, and dilated stomach containing fluid/food material with thickening and edema of the gastric antrum/pylorus (focal gastritis vs PUD?) -s/p enemas x 3 with good results per nursing on 02/16/2019. -KUB this am with mild dilation of small bowel and dilated colon with persistent fecal impaction. -surgery following with recommendations for NPO with placement of NGT to LIS and enemas til clear -decreasing output from the NG tube, which will be switch to a larger caliber tube. Rec: -will tentatively plan for EGD tomorrow. Will monitor output from the larger caliber NG tube and repeat KUB in the AM. -continue with PPI. -patient will need to be on daily bowel regimen for constipation upon d/c -will follow - Patient Problems (1) Nausea & vomiting Current Visit: Yes Status: Acute Qualifiers: Vomiting type: unspecified Vomiting Intractability: intractable Qualified Code(s): R11.2 - Nausea with vomiting, unspecified Subjective Date of service: 02/17/19 Interval history: Patient continues to have some output from the NG tube, which is a small caliber and will be switched to a larger caliber tube today. Fever this morning to 100.4. Objective - Constitutional Vitals: Temp Pulse Resp BP Pulse Ox 100.0 F H 84 18 131/67 95 02/17/19 07:42 02/17/19 09:55 02/17/19 07:42 02/17/19 09:55 02/17/19 09:00 General appearance: no acute distress - Neck Neck: supple - Respiratory Respiratory effort: normal Respiratory: bilateral: CTA - Cardiovascular Rhythm: regular Heart Sounds: Present: S1 & S2 - Extremities Extremities: No edema - Gastrointestinal General gastrointestinal: Present: soft, non-tender, distended, hypoactive bowel sounds - Integumentary Integumentary: Present: clear, warm - Labs CBC & Chem 7: 02/15/19 20:06 02/15/19 20:06 Labs: Laboratory Results - last 24 hr 02/17/19 05:24 PT 13.5 INR 1.06 - Imaging x-ray: report reviewed
--- NOTE | 2019-02-17 13:38 | XRay Report ---
ABDOMEN 1 VIEW 02/17/19 1:14 PM INDICATION / CLINICAL INFORMATION: NGT verification. COMPARISON: 8:19 AM FINDINGS: TUBES / LINES: Esophagogastric tube has been advanced into the body the stomach in expected position. BOWEL GAS PATTERN: Moderate gaseous distention of small and large bowel is unchanged. FREE AIR / EXTRALUMINAL GAS: None seen. ADDITIONAL FINDINGS: No significant additional findings. IMPRESSION: 1. Esophagogastric tube in expected position. Signer Name: Zaynab Ramirez MD Signed: 02/17/2019 1:33 PM Workstation Name: [id number]
[2019-02-17] MEDS: NACL 0.9% 1000 ML 1,000 ML IV SCH (14:15)
[2019-02-17] MEDS: LATANOPROST 0.005% OU SCH (18:30)
[2019-02-18 04:47] LABS: Hematocrit 36.8 % (35.5-45.6); Hemoglobin 12.5 gm/dl (11.8-15.2); Mean Corpuscular HGB Conc 34 % (32-34); Mean Corpuscular Volume 91 fl (84-94); Platelet Count 281 K/mm3 (140-440); Red Blood Count 4.06 M/mm3 (3.65-5.03); Red Cell Distribution Width 14.5 % (13.2-15.2)
[2019-02-18 04:59] LABS: BUN/Creatinine Ratio 9; Blood Urea Nitrogen 7 mg/dL (9-20); Calcium 8.2 mg/dL (8.4-10.2); Hemolysis Index 6
[2019-02-18] MEDS: NACL 0.9% 1000 ML 1,000 ML IV SCH (06:39)
[2019-02-18] MEDS ORDERED: WATER FOR IRRIG STERILE IR ONE (08:40)
[2019-02-18] MEDS ORDERED: WATER FOR IRRIG STERILE ONE (08:41)
[2019-02-18] MEDS ORDERED: NACL 0.9% 1000 ML 1,000 ML ONE (08:41)
--- NOTE | 2019-02-18 09:13 | Anesthesia Consultation ---
Anesthesia Consult and Med Hx Date of service: 02/18/19 - Airway Anesthetic Teeth Evaluation: Poor ROM Head & Neck: Adequate Mental/Hyoid Distance: Adequate Mallampati Class: Class II Intubation Access Assessment: Probably Good - Pre-Operative Health Status ASA Pre-Surgery Classification: ASA3 Proposed Anesthetic Plan: MAC - Pulmonary Hx Sleep Apnea: Yes - Cardiovascular System Hx Hypertension: Yes - Central Nervous System Hx Psychiatric Problems: Yes (mental reyardation, non verbal) - Gastrointestinal Hx Gastroesophageal Reflux Disease: No (nausea/vomiting, dyspagea, diarrhea) - Endocrine Hx Renal Disease: Yes (kidney spones) Hx Liver Disease: Yes (gallbladder stones) - Additional Comments Anesthesia Medical History Comments: glaucoma
--- NOTE | 2019-02-18 09:13 | Anesthesia Day of Surgery ---
Anesthesia Day of Surgery - Day of Surgery Patient Examined: Yes Patient H&P Reviewed: Yes Patient is NPO: Yes Beta Blockers: Yes
[2019-02-18] MEDS ORDERED: DIPRIVAN 10 MG/ML IV ONE (09:21)
--- NOTE | 2019-02-18 09:55 | Progress Note ---
Assessment and Plan Assessment and plan: Patient is a 79-year-old male with PMHx of glaucoma and blindness, Mental retardation, HTN, kidney stones, gall stones, who was brought to the ER with c/o nausea, vomiting and diarrhea x 1 week. Pt is nonverbal therefore cannot provide medical, the history was given by the patient's caregiver who reports the patient had diarrhea 3 times one week ago. The respiratory care faculty add that the started vomiting started 3 days ago, and had a total of 5 lbs wt loss within 1 week. According to the respiratory care faculty, pt had not been able to tolerate any PO intake, he was taking to see his PCP (Dr. Beverly) yesterday who recommended that the patient come to the ER for evaluation. Patient has not tolerated any by mouth. In the ER a CT scan of the abdomen showed a moderate amount of fecal material in the distal colon and rectum, possible fecal impaction. Dilated stomach containing fluid and food material with thickening and edema of the gastric antrum and pylori. Pt was initially treated in the ER and admitted for further evaluation and treatment. * Abd CT showed a moderate amount of fecal material in the distal colon/rectum, possible fecal impaction, and dilated stomach containing fluid/food material with thickening and edema of the gastric antrum/pylorus (focal gastritis vs PUD?) * Initial repeat KUB showed improvement. Repeat was showing more of the same. 1. Fecal impaction/Severe Constipation/ Gastric Outlet obstruction * EGD FINDINGS: * There was two large ~1-1.5 cm clean based deep ulcers with edema at the pylorus region causing partial obstruction at the pylorus. The scope could not be traversed beyond the pylorus due to edema and distortion. However, bile was seen flowing back. Biopsies were obtained from the ulcer site. * Mild patchy erythematous mucosa noted in the gastric body and fundus. * GE junction at 38 cm from the incisors * Distal esophagus revealed mild to moderate esophagitis likely partly due to NG tube trauma as well. RECOMMENDATIONS: * Continue with protonix IV bid. * Recommend upper GI series to evaluate if there is a complete gastric outlet obstruction. * Will follow. 2. Acute gastritis 3. Nausea and vomiting (due to #1 and 2) 4. Blindness 5. Mental retardation with associated dementia 6. Cholelithiasis 7. Hypertension (stable) 8. Dehydration 9. Acute Cystitis 10. Replace K Plan: Continue supportive care Fleet enema/digital removable of impaction scheduled and PRN Surgery and GI input noted abd CT showed a moderate amount of fecal material in the distal colon/rectum, possible fecal impaction, and dilated stomach containing fluid/food material with thickening and edema of the gastric antrum/pylorus (focal gastritis vs PUD?) Continue enema EGD today Consent sidnged due to patients dementia keep NPO with placement of NGT to LIS and enemas til clear Resume home meds DVT prophylaxis Patient's plan of care discussed with respiratory care faculty s/p enemas x 3 with good results per nursing- will continue Discussed with [facility] staff. History Interval history: Patient seen and examined, confused, seen at EGD suite today Hospitalist Physical - Physical exam Narrative exam: General appearance: Present: no acute distress, Contracted - Respiratory Respiratory: bilateral: CTA - Cardiovascular Heart Sounds: Present: S1 & S2 - Extremities Extremities: no ischemia, No edema Peripheral Pulses: within normal limits - Abdominal General gastrointestinal: Present: soft, non-tender Male genitourinary: Present: deferred - Rectal Rectal Exam: deferred - Integumentary Integumentary: Present: clear, warm, dry - Musculoskeletal Musculoskeletal: strength equal bilaterally - Psychiatric Psychiatric: other (unable to evaluate) - Neurologic Neurologic: other (unable to evaluate) - Constitutional Vitals: Temp Pulse Resp BP Pulse Ox 98.3 F 95 H 16 133/68 99 02/18/19 04:00 02/18/19 04:00 02/18/19 04:00 02/18/19 04:00 02/18/19 04:00 General appearance: Present: no acute distress Results - Labs CBC & Chem 7: 02/18/19 04:13 02/18/19 04:13 Labs: Laboratory Last Values WBC 6.5 K/mm3 (4.5-11.0) 02/18/19 04:13 RBC 4.06 M/mm3 (3.65-5.03) 02/18/19 04:13 Hgb 12.5 gm/dl (11.8-15.2) 02/18/19 04:13 Hct 36.8 % (35.5-45.6) 02/18/19 04:13 MCV 91 fl (84-94) 02/18/19 04:13 MCH 31 pg (28-32) 02/18/19 04:13 MCHC 34 % (32-34) 02/18/19 04:13 RDW 14.5 % (13.2-15.2) 02/18/19 04:13 Plt Count 281 K/mm3 (140-440) 02/18/19 04:13 Lymph % (Auto) 14.0 % (13.4-35.0) 02/15/19 20:06 [place] % (Auto) 15.0 % (0.0-7.3) H 02/15/19 20:06 Eos % (Auto) 1.5 % (0.0-4.3) 02/15/19 20:06 Baso % (Auto) 1.1 % (0.0-1.8) 02/15/19 20:06 Lymph # 0.9 K/mm3 (1.2-5.4) L 02/15/19 20:06 [place] # 1.0 K/mm3 (0.0-0.8) H 02/15/19 20:06 Eos # 0.1 K/mm3 (0.0-0.4) 02/15/19 20:06 Baso # 0.1 K/mm3 (0.0-0.1) 02/15/19 20:06 Seg Neutrophils % 68.4 % (40.0-70.0) 02/15/19 20:06 Seg Neutrophils # 4.4 K/mm3 (1.8-7.7) 02/15/19 20:06 PT 13.5 Sec. (12.2-14.9) 02/17/19 05:24 INR 1.06 (0.87-1.13) 02/17/19 05:24 Sodium 139 mmol/L (137-145) 02/18/19 04:13 Potassium 3.0 mmol/L (3.6-5.0) L D 02/18/19 04:13 Chloride 100.7 mmol/L (98-107) 02/18/19 04:13 Carbon Dioxide 25 mmol/L (22-30) 02/18/19 04:13 16 mmol/L 02/18/19 04:13 BUN 7 mg/dL (9-20) L 02/18/19 04:13 0.8 mg/dL (0.8-1.5) 02/18/19 04:13 Estimated GFR > 60 ml/min 02/18/19 04:13 9 % 02/18/19 04:13 Glucose 96 mg/dL (75-100) 02/18/19 04:13 Calcium 8.2 mg/dL (8.4-10.2) L 02/18/19 04:13 0.40 mg/dL (0.1-1.2) 02/15/19 20:06 AST 22 units/L (5-40) 02/15/19 20:06 ALT 11 units/L (7-56) 02/15/19 20:06 67 units/L (35-129) 02/15/19 20:06 6.7 g/dL (6.3-8.2) 02/15/19 20:06 3.3 g/dL (3.9-5) L 02/15/19 20:06 1.0 % 02/15/19 20:06 30 units/L (13-60) 02/15/19 20:06 Yellow (Yellow) 02/16/19 02:00 Slightly-cloudy (Clear) 02/16/19 02:00 6.0 (5.0-7.0) 02/16/19 02:00 Ur Specific [place] 1.034 (1.003-1.030) H 02/16/19 02:00 <15 mg/dl mg/dL (Negative) 02/16/19 02:00 Neg mg/dL (Negative) 02/16/19 02:00 Neg mg/dL (Negative) 02/16/19 02:00 Sm (Negative) 02/16/19 02:00 Neg (Negative) 02/16/19 02:00 Neg (Negative) 02/16/19 02:00 2.0 mg/dL (<2.0) 02/16/19 02:00 Ur Leukocyte Esterase Tr (Negative) 02/16/19 02:00 22.0 /HPF (0.0-6.0) H 02/16/19 02:00 13.0 /HPF (0.0-6.0) 02/16/19 02:00 U Epithel Cells (Auto) 3.0 /HPF (0-13.0) 02/16/19 02:00 1+ /HPF (Negative) 02/16/19 02:00 Few /HPF 02/16/19 02:00 1+ /HPF 02/16/19 02:00 Active Medications - Current Medications Current Medications: Generic Name Dose Route Start Last Admin Trade Name Ashley PRN Reason Stop Dose Admin Enoxaparin Sodium 40 mg 02/16/19 10:00 02/17/19 09:42 Lovenox SUB-Q Not Given QDAY@1000 EDOUARD Sodium Chloride 1,000 mls @ 75 mls/hr 02/16/19 01:00 02/18/19 06:39 Nacl 0.9% 1000 Ml IV 75 mls/hr DIRECT EDOUARD Administration Ceftriaxone Sodium 1 gm in 50 mls @ 100 mls/hr 02/16/19 17:00 02/17/19 09:36 Rocephin/Ns 1 Gm/50 Ml IV 100 mls/hr Q24HR EDOUARD Administration Protocol Latanoprost 1 drops 02/16/19 18:00 02/17/19 18:30 Latanoprost 0.005% OU 1 drops QPM EDOUARD Administration Metoclopramide HCl 10 mg 02/16/19 00:34 Reglan IV Q6H PRN Nausea And Vomiting Metoprolol Tartrate 25 mg 02/16/19 10:00 02/17/19 21:30 Lopressor PO 25 mg BID EDOUARD Administration Mineral Oil 133 ml 02/18/19 09:49 Fleet Mineral Oil LA QDAY PRN Constipation Ondansetron HCl 4 mg 02/16/19 00:34 Zofran IV Q8H PRN Nausea And Vomiting Pantoprazole Sodium 40 mg 02/16/19 22:00 02/17/19 21:22 Protonix IV 40 mg BID EDOUARD Administration Pilocarpine HCl 1 drops 02/16/19 10:00 02/17/19 09:38 Isopto Carpine OU 1 drops DAILY EDOUARD Administration Sodium Biphosphate/Sodium Phosphate 133 ml 02/18/19 09:49 Fleet LA 02/18/19 09:50 ONCE ONE Sodium Chloride 10 ml 02/16/19 10:00 02/17/19 21:23 Sodium Chloride Flush Syringe 10 Ml IV 10 ml BID EDOUARD Administration Sodium Chloride 10 ml 02/16/19 00:34 Sodium Chloride Flush Syringe 10 Ml IV PRN PRN LINE FLUSH Nutrition/Malnutrition Assess - Dietary Evaluation Nutrition/Malnutrition Findings: Nutrition Notes Start: 02/16/19 16:40 Freq: Status: Active Protocol: Document 02/16/19 16:40 RM (Rec: 02/16/19 16:44 RM [id number]) Nutrition Notes Need for Assessment generated from: MST Initial or Follow up Brief Note Other Pertinent Diagnosis Mental retardation, Gallstones ,N/V X 3 days,Nonverbal,Fecal impaction,Blind Current Diet Cardiac/Consistent CHO Labs/Tests Reviewed Pertinent Medications Reviewed Height 5 ft 4 in Weight 58.513 kg [place] Body Weight (kg) 59.09 BMI 22.1 Subjective/Other Information Screened for malnutrition. Per tech pt ate all of breakfast. Noted lunch at bedside w/everything but the salad eaten. Denied pt vomiting. No temporal or orbital wasting . Burn Absent Trauma Absent Nutrition Intervention Revisit per MD consult or patient Sign Off request:
[2019-02-18] MEDS ORDERED: FLEET MINERAL OIL PR PRN (10:00)
--- NOTE | 2019-02-18 10:23 | Operative Report ---
Operative Report Operative Report: Date: 02/18/2019 Endoscopist: Willy Melvin MD Procedure: EGD PREOPERATIVE DIAGNOSIS and POSTOPERATIVE DIAGNOSIS: nausea/vomiting ESTIMATED BLOOD LOSS: minimal DESCRIPTION OF PROCEDURE: A high-resolution EGD scope was passed through the oropharynx, esophagus and to the stomach. The scope was carefully withdrawn. Retroflexion was performed in the stomach. At the end of the procedure, the scope was cleaned using normal technique. Vital signs monitored continuously throughout. SEDATION: Provided by Anesthesiology Services. COMPLICATIONS: None. FINDINGS: * There was two large ~1-1.5 cm clean based deep ulcers with edema at the pylorus region causing partial obstruction at the pylorus. The scope could not be traversed beyond the pylorus due to edema and distortion. However, bile was seen flowing back. Biopsies were obtained from the ulcer site. * Mild patchy erythematous mucosa noted in the gastric body and fundus. * GE junction at 38 cm from the incisors * Distal esophagus revealed mild to moderate esophagitis likely partly due to NG tube trauma as well. RECOMMENDATIONS: * Continue with protonix IV bid. * Recommend upper GI series to evaluate if there is a complete gastric outlet obstruction. * Will follow.
[2019-02-18] MEDS ORDERED: FLEET PR ONE (11:00)
[2019-02-18] MEDS: KCL 10MEQ/100ML 10 MEQ/100 ML BAG IV SCH ×4 (11:50→16:00)
[2019-02-18] MEDS: ROCEPHIN/NS 1 GM/50 ML 1 GM/50 ML BAG IV SCH (12:09)
[2019-02-18] MEDS: LOVENOX SUB-Q SCH (12:12)
[2019-02-18] MEDS: SODIUM CHLORIDE FLUSH SYRINGE 10 ML IV SCH ×2 (12:13→22:38)
[2019-02-18] MEDS: PROTONIX IV SCH ×2 (12:13→23:13)
[2019-02-18] MEDS: LOPRESSOR PO SCH ×2 (12:13→22:34)
[2019-02-18] MEDS: ISOPTO CARPINE OU SCH (12:14)
--- NOTE | 2019-02-18 12:53 | Progress Note ---
Assessment and Plan Pt status quo. GI note noted. partially obstructing pyloric channel ulcers ([place] ulcer's?) Abd soft, non tender today's abd series not yet done. NG out. re-insert ng enemas still darkish brown as per RN repeat Tap water enemas x 2 today await path report continue present care Selected Entries 02/18/19 02/18/19 12:00 12:13 Temperature 98.2 F Pulse Rate 93 H Blood Pressure 176/62 Laboratory Tests 02/18/19 04:13 Potassium 3.0 L D Objective Vital Signs - 12hr 02/18/19 02/18/19 02/18/19 02:40 04:00 08:45 Temperature 97.7 F 98.3 F 98.3 F Pulse Rate 97 H 95 H 82 Respiratory 20 16 18 Rate Blood Pressure 149/93 127/55 Blood Pressure 133/68 [Left] O2 Sat by Pulse 92 99 98 Oximetry 02/18/19 02/18/19 02/18/19 09:51 10:05 10:10 Temperature 97.8 F Pulse Rate 95 H 89 105 H Respiratory 14 19 18 Rate Blood Pressure 97/53 93/63 114/58 Blood Pressure [Left] O2 Sat by Pulse 100 98 98 Oximetry 02/18/19 02/18/19 02/18/19 10:20 10:30 11:56 Temperature 98.2 F Pulse Rate 110 H 114 H Respiratory 18 18 20 Rate Blood Pressure 122/59 142/62 171/69 Blood Pressure [Left] O2 Sat by Pulse 99 98 Oximetry 02/18/19 02/18/19 02/18/19 11:57 12:00 12:13 Temperature 98.2 F Pulse Rate 57 L 93 H 93 H Respiratory Rate Blood Pressure 176/62 176/62 Blood Pressure [Left] O2 Sat by Pulse 90 97 Oximetry - Labs 02/18/19 04:13 02/18/19 04:13 Diabetes panel 02/18/19 Range/Units 04:13 Sodium 139 (137-145) mmol/L Potassium 3.0 L D (3.6-5.0) mmol/L Chloride 100.7 (98-107) mmol/L Carbon Dioxide 25 (22-30) mmol/L BUN 7 L (9-20) mg/dL Creatinine 0.8 (0.8-1.5) mg/dL Glucose 96 (75-100) mg/dL Calcium 8.2 L (8.4-10.2) mg/dL Calcium panel 02/18/19 Range/Units 04:13 Calcium 8.2 L (8.4-10.2) mg/dL Pituitary panel 02/18/19 Range/Units 04:13 Sodium 139 (137-145) mmol/L Potassium 3.0 L D (3.6-5.0) mmol/L Chloride 100.7 (98-107) mmol/L Carbon Dioxide 25 (22-30) mmol/L BUN 7 L (9-20) mg/dL Creatinine 0.8 (0.8-1.5) mg/dL Glucose 96 (75-100) mg/dL Calcium 8.2 L (8.4-10.2) mg/dL Adrenal panel 02/18/19 Range/Units 04:13 Sodium 139 (137-145) mmol/L Potassium 3.0 L D (3.6-5.0) mmol/L Chloride 100.7 (98-107) mmol/L Carbon Dioxide 25 (22-30) mmol/L BUN 7 L (9-20) mg/dL Creatinine 0.8 (0.8-1.5) mg/dL Glucose 96 (75-100) mg/dL Calcium 8.2 L (8.4-10.2) mg/dL
[2019-02-18] MEDS ORDERED: ATIVAN IV ONE (13:15)
--- NOTE | 2019-02-18 16:19 | XRay Report ---
ABDOMEN 1 VIEW INDICATION / CLINICAL INFORMATION: ngt placement verification. COMPARISON: 2018 FINDINGS: TUBES / LINES: The tip of an esophagogastric tube is barely into the stomach with the sidehole above the gastroesophageal junction in the distal esophagus. BOWEL GAS PATTERN: Slight improvement in gaseous distention of small and large bowel loops. FREE AIR / EXTRALUMINAL GAS: None seen. ADDITIONAL FINDINGS: No significant additional findings. IMPRESSION: 1. Esophagogastric tube should be advanced 5-10 cm for optimal positioning. Signer Name: Zaynab Ramirez MD Signed: 02/18/2019 4:15 PM Workstation Name: [id number]
[2019-02-18] MEDS: LATANOPROST 0.005% OU SCH (18:25)
[2019-02-19] MEDS: NACL 0.9% 1000 ML 1,000 ML IV SCH ×2 (03:47→18:18)
[2019-02-19] MEDS: LOVENOX SUB-Q SCH (09:56)
[2019-02-19] MEDS: PROTONIX IV SCH ×2 (09:57→22:04)
[2019-02-19] MEDS: ISOPTO CARPINE OU SCH (10:00)
[2019-02-19] MEDS: ROCEPHIN/NS 1 GM/50 ML 1 GM/50 ML BAG IV SCH (10:00)
[2019-02-19] MEDS: LOPRESSOR PO SCH ×2 (10:00→22:03)
--- NOTE | 2019-02-19 11:22 | Progress Note ---
Assessment and Plan Pt status quo. resting comfortably. twice removed his ng tube despite restraints. currently ng out Abd - non tender GI eval and EGD findings noted awaiting UGI today to further eval degree of gastric outlet obst also awaiting path of ulcers Objective Vital Signs - 12hr 02/19/19 02/19/19 02:00 07:38 Temperature 98.7 F 98.0 F Pulse Rate 102 H 108 H Respiratory 20 18 Rate Blood Pressure 127/54 Blood Pressure 106/51 [Left] O2 Sat by Pulse 96 96 Oximetry - Labs 02/18/19 04:13 02/18/19 04:13
[2019-02-19 11:37] LABS: BUN/Creatinine Ratio 28; Blood Urea Nitrogen 22 mg/dL (9-20); Calcium 7.8 mg/dL (8.4-10.2); Hemolysis Index 3
--- NOTE | 2019-02-19 12:30 | Gastroenterology Progress Note ---
Assessment and Plan 1.fecal impaction/constipation 2. Nausea/vomiting - concerning for GOO, PUD, -abd CT showed a moderate amount of fecal material in the distal colon/rectum, possible fecal impaction, and dilated stomach containing fluid/food material with thickening and edema of the gastric antrum/pylorus (focal gastritis vs PUD?) -s/p enemas x 3 with good results per nursing on 02/16/2019 and continues to have liquid stools this morning per nursing. -s/p EGD on 02/18/2019 showing two large ulcers at the pylorus and edema causing partial gastric outlet obstruction. There was bile flowing back and small opening but scope could not be advanced beyond the pylorus. - NG tube replaced overnight but patient kept pulling it out despite restraints. - This is likely partial GOO and not a complete obstruction, will change to clear liquid diet and follow up with upper GI series. The obstruction will likely improve over time with the ulcers healing. Rec: -upper GI series ordered. -continue with PPI. -patient will need to be on daily bowel regimen for constipation upon d/c -will follow - Patient Problems (1) Nausea & vomiting Current Visit: Yes Status: Acute Qualifiers: Vomiting type: unspecified Vomiting Intractability: intractable Qualified Code(s): R11.2 - Nausea with vomiting, unspecified Subjective Date of service: 02/19/19 Interval history: Patient had NG tube replaced but patient kept pulling it out. Currently no NG tube in at this time. Per nursing, he had clear liquid stools. Objective - Constitutional Vitals: Temp Pulse Resp BP Pulse Ox 98.0 F 108 H 18 127/54 96 02/19/19 07:38 02/19/19 07:38 02/19/19 07:38 02/19/19 07:38 02/19/19 07:38 General appearance: no acute distress - Neck Neck: supple - Respiratory Respiratory effort: normal Respiratory: bilateral: CTA - Cardiovascular Rhythm: regular Heart Sounds: Present: S1 & S2 - Gastrointestinal General gastrointestinal: Present: soft, non-tender, distended - Labs CBC & Chem 7: 02/18/19 04:13 02/19/19 10:41 Labs: Laboratory Results - last 24 hr 02/19/19 10:41 Sodium 142 Potassium 3.3 L Chloride 105.7 Carbon Dioxide 19 L Anion Gap 21 BUN 22 H Creatinine 0.8 Estimated GFR > 60 BUN/Creatinine Ratio 28 Glucose 97 Calcium 7.8 L
[2019-02-19] MEDS: KCL 10MEQ/100ML 10 MEQ/100 ML BAG IV SCH ×2 (12:43→13:28)
--- NOTE | 2019-02-19 13:27 | XRay Report ---
ABDOMEN 1 VIEW INDICATION / CLINICAL INFORMATION: NGT PLACEMENT. COMPARISON: 05/30/19 FINDINGS: TUBES / LINES: Esophagogastric tube is present just beyond the gastroesophageal junction with the nicolle ehole above the gastroesophageal junction. BOWEL GAS PATTERN: Gaseous distention of bowel is unchanged. FREE AIR / EXTRALUMINAL GAS: None seen. ADDITIONAL FINDINGS: No significant additional findings. IMPRESSION: 1. Esophagogastric tube should be advanced 5-10 cm for optimal positioning. Signer Name: Zaynab Ramirez MD Signed: 02/19/2019 1:23 PM Workstation Name: [id number]
--- NOTE | 2019-02-19 15:45 | Progress Note ---
Assessment and Plan Assessment and plan: Patient is a 79-year-old male with PMHx of glaucoma and blindness, Mental retardation, HTN, kidney stones, gall stones, who was brought to the ER with c/o nausea, vomiting and diarrhea x 1 week. Pt is nonverbal therefore cannot provide medical, the history was given by the patient's caregiver who reports the patient had diarrhea 3 times one week ago. The managed care specialist add that the started vomiting started 3 days ago, and had a total of 5 lbs wt loss within 1 week. According to the managed care specialist, pt had not been able to tolerate any PO intake, he was taking to see his PCP (Dr. Beverly) yesterday who recommended that the patient come to the ER for evaluation. Patient has not tolerated any by mouth. In the ER a CT scan of the abdomen showed a moderate amount of fecal material in the distal colon and rectum, possible fecal impaction. Dilated stomach containing fluid and food material with thickening and edema of the gastric antrum and pylori. Pt was initially treated in the ER and admitted for further evaluation and treatment. * Abd CT showed a moderate amount of fecal material in the distal colon/rectum, possible fecal impaction, and dilated stomach containing fluid/food material with thickening and edema of the gastric antrum/pylorus (focal gastritis vs PUD?) * Initial repeat KUB showed improvement. Repeat was showing more of the same. * This gentleman underwent EGD with finding of 2 large clean-based ulcers likely causing partial obstruction on the pylorus area. * Patient continued with Enema and began to have loose stool * Awaiting repeat KUB in am and if stable and tolerating full liquid, he can be discharged with BID PPI 1. Fecal impaction/Severe Constipation/ Gastric Outlet obstruction * EGD FINDINGS: * There was two large ~1-1.5 cm clean based deep ulcers with edema at the pyloru s region causing partial obstruction at the pylorus. The scope could not be traversed beyond the pylorus due to edema and distortion. However, bile was seen flowing back. Biopsies were obtained from the ulcer site. * Mild patchy erythematous mucosa noted in the gastric body and fundus. * GE junction at 38 cm from the incisors * Distal esophagus revealed mild to moderate esophagitis likely partly due to NG tube trauma as well. 2. Acute gastritis 3. Nausea and vomiting (due to #1 and 2) 4. Blindness 5. Mental retardation with associated dementia 6. Cholelithiasis 7. Hypertension (stable) 8. Dehydration 9. Acute Cystitis 10. Replace K Plan: Continue supportive care Fleet enema/digital removable of impaction scheduled and PRN Surgery and GI input noted abd CT showed a moderate amount of fecal material in the distal colon/rectum, possible fecal impaction, and dilated stomach containing fluid/food material with thickening and edema of the gastric antrum/pylorus (focal gastritis vs PUD?) Continue enema Resume home meds DVT prophylaxis Patient's plan of care discussed with managed care specialist s/p enemas x 3 with good results per nursing- will continue [facility] with [facility]. History Interval history: Patient seen and examined, remains with confusion. Patient removed NG tube somehow twice yesterday despite restraints. Noted loose stool today. Hospitalist Physical - Physical exam Narrative exam: General appearance: Present: no acute distress, Contracted - Respiratory Respiratory: bilateral: CTA - Cardiovascular Heart Sounds: Present: S1 & S2 - Extremities Extremities: no ischemia, No edema Peripheral Pulses: within normal limits - Abdominal General gastrointestinal: Present: soft, non-tender Male genitourinary: Present: deferred - Rectal Rectal Exam: deferred - Integumentary Integumentary: Present: clear, warm, dry - Musculoskeletal Musculoskeletal: strength equal bilaterally - Psychiatric Psychiatric: other (unable to evaluate) - Neurologic Neurologic: other (unable to evaluate) - Constitutional Vitals: Temp Pulse Resp BP Pulse Ox 98.6 F 114 H 18 99/54 100 02/19/19 12:18 02/19/19 12:18 02/19/19 12:18 02/19/19 12:18 02/19/19 12:18 General appearance: Present: no acute distress Results - Labs CBC & Chem 7: 02/18/19 04:13 02/19/19 10:41 Labs: Laboratory Last Values WBC 6.5 K/mm3 (4.5-11.0) 02/18/19 04:13 RBC 4.06 M/mm3 (3.65-5.03) 02/18/19 04:13 Hgb 12.5 gm/dl (11.8-15.2) 02/18/19 04:13 Hct 36.8 % (35.5-45.6) 02/18/19 04:13 MCV 91 fl (84-94) 02/18/19 04:13 MCH 31 pg (28-32) 02/18/19 04:13 MCHC 34 % (32-34) 02/18/19 04:13 RDW 14.5 % (13.2-15.2) 02/18/19 04:13 Plt Count 281 K/mm3 (140-440) 02/18/19 04:13 Lymph % (Auto) 14.0 % (13.4-35.0) 02/15/19 20:06 [place] % (Auto) 15.0 % (0.0-7.3) H 02/15/19 20:06 Eos % (Auto) 1.5 % (0.0-4.3) 02/15/19 20:06 Baso % (Auto) 1.1 % (0.0-1.8) 02/15/19 20:06 Lymph # 0.9 K/mm3 (1.2-5.4) L 02/15/19 20:06 [place] # 1.0 K/mm3 (0.0-0.8) H 02/15/19 20:06 Eos # 0.1 K/mm3 (0.0-0.4) 02/15/19 20:06 Baso # 0.1 K/mm3 (0.0-0.1) 02/15/19 20:06 Seg Neutrophils % 68.4 % (40.0-70.0) 02/15/19 20:06 Seg Neutrophils # 4.4 K/mm3 (1.8-7.7) 02/15/19 20:06 PT 13.5 Sec. (12.2-14.9) 02/17/19 05:24 INR 1.06 (0.87-1.13) 02/17/19 05:24 Sodium 142 mmol/L (137-145) 02/19/19 10:41 Potassium 3.3 mmol/L (3.6-5.0) L 02/19/19 10:41 Chloride 105.7 mmol/L (98-107) 02/19/19 10:41 Carbon Dioxide 19 mmol/L (22-30) L 02/19/19 10:41 21 mmol/L 02/19/19 10:41 BUN 22 mg/dL (9-20) H 02/19/19 10:41 0.8 mg/dL (0.8-1.5) 02/19/19 10:41 Estimated GFR > 60 ml/min 02/19/19 10:41 28 % 02/19/19 10:41 Glucose 97 mg/dL (75-100) 02/19/19 10:41 Calcium 7.8 mg/dL (8.4-10.2) L 02/19/19 10:41 0.40 mg/dL (0.1-1.2) 02/15/19 20:06 AST 22 units/L (5-40) 02/15/19 20:06 ALT 11 units/L (7-56) 02/15/19 20:06 67 units/L (35-129) 02/15/19 20:06 6.7 g/dL (6.3-8.2) 02/15/19 20:06 3.3 g/dL (3.9-5) L 02/15/19 20:06 1.0 % 02/15/19 20:06 30 units/L (13-60) 02/15/19 20:06 Yellow (Yellow) 02/16/19 02:00 Slightly-cloudy (Clear) 02/16/19 02:00 6.0 (5.0-7.0) 02/16/19 02:00 Ur Specific [place] 1.034 (1.003-1.030) H 02/16/19 02:00 <15 mg/dl mg/dL (Negative) 02/16/19 02:00 Neg mg/dL (Negative) 02/16/19 02:00 Neg mg/dL (Negative) 02/16/19 02:00 Sm (Negative) 02/16/19 02:00 Neg (Negative) 02/16/19 02:00 Neg (Negative) 02/16/19 02:00 2.0 mg/dL (<2.0) 02/16/19 02:00 Ur Leukocyte Esterase Tr (Negative) 02/16/19 02:00 22.0 /HPF (0.0-6.0) H 02/16/19 02:00 13.0 /HPF (0.0-6.0) 02/16/19 02:00 U Epithel Cells (Auto) 3.0 /HPF (0-13.0) 02/16/19 02:00 1+ /HPF (Negative) 02/16/19 02:00 Few /HPF 02/16/19 02:00 1+ /HPF 02/16/19 02:00 Active Medications - Current Medications Current Medications: Generic Name Dose Route Start Last Admin Trade Name Freq PRN Reason Stop Dose Admin Enoxaparin Sodium 40 mg 02/16/19 10:00 02/19/19 09:56 Lovenox SUB-Q 40 mg QDAY@1000 EDOUARD Administration Sodium Chloride 1,000 mls @ 75 mls/hr 02/16/19 01:00 02/19/19 03:47 Nacl 0.9% 1000 Ml IV 75 mls/hr DIRECT EDOUARD Administration Ceftriaxone Sodium 1 gm in 50 mls @ 100 mls/hr 02/16/19 17:00 02/19/19 10:00 Rocephin/Ns 1 Gm/50 Ml IV 100 mls/hr Q24HR EDOUARD Administration Protocol Latanoprost 1 drops 02/16/19 18:00 02/18/19 18:25 Latanoprost 0.005% OU 1 drops QPM EDOUARD Administration Metoclopramide HCl 10 mg 02/16/19 00:34 Reglan IV Q6H PRN Nausea And Vomiting Metoprolol Tartrate 25 mg 02/16/19 10:00 02/18/19 22:34 Lopressor PO Not Given BID EDOUARD Mineral Oil 133 ml 02/18/19 10:00 Fleet Mineral Oil [place] QDAY PRN Constipation Ondansetron HCl 4 mg 02/16/19 00:34 Zofran IV Q8H PRN Nausea And Vomiting Pantoprazole Sodium 40 mg 02/16/19 22:00 02/19/19 09:57 Protonix IV 40 mg BID EDOUARD Administration Pilocarpine HCl 1 drops 02/16/19 10:00 02/19/19 10:00 Isopto Carpine OU 1 drops DAILY EDOUARD Administration Sodium Chloride 10 ml 02/16/19 10:00 02/18/19 22:38 Sodium Chloride Flush Syringe 10 Ml IV 10 ml BID EDOUARD Administration Sodium Chloride 10 ml 02/16/19 00:34 02/19/19 10:06 Sodium Chloride Flush Syringe 10 Ml IV 10 ml PRN PRN Administration LINE FLUSH Nutrition/Malnutrition Assess - Dietary Evaluation Nutrition/Malnutrition Findings: Nutrition Notes Start: 02/16/19 16:40 Freq: Status: Active Protocol: Document 02/16/19 16:40 RM (Rec: 02/16/19 16:44 RM [id number]) Nutrition Notes Need for Assessment generated from: MST Initial or Follow up Brief Note Other Pertinent Diagnosis Mental retardation, Gallstones ,N/V X 3 days,Nonverbal,Fecal impaction,Blind Current Diet Cardiac/Consistent CHO Labs/Tests Reviewed Pertinent Medications Reviewed Height 5 ft 4 in Weight 58.513 kg [place] Body Weight (kg) 59.09 BMI 22.1 Subjective/Other Information Screened for malnutrition. Per tech pt ate all of breakfast. Noted lunch at bedside w/everything but the salad eaten. Denied pt vomiting. No temporal or orbital wasting . Burn Absent Trauma Absent Nutrition Intervention Revisit per MD consult or patient Sign Off request:
[2019-02-19] MEDS: LATANOPROST 0.005% OU SCH (18:22)
[2019-02-19] MEDS: SODIUM CHLORIDE FLUSH SYRINGE 10 ML IV SCH ×2 (21:59→22:03)
[2019-02-20 07:56] LABS: BUN/Creatinine Ratio 15; Blood Urea Nitrogen 9 mg/dL (9-20); Calcium 7.7 mg/dL (8.4-10.2); Hemolysis Index 23
--- NOTE | 2019-02-20 10:16 | Gastroenterology Progress Note ---
Assessment and Plan 1.fecal impaction/constipation 2. Nausea/vomiting - concerning for GOO, PUD, -abd CT showed a moderate amount of fecal material in the distal colon/rectum, possible fecal impaction, and dilated stomach containing fluid/food material with thickening and edema of the gastric antrum/pylorus (focal gastritis vs PUD?) -s/p enemas x 3 with good results per nursing on 02/16/2019 and continues to have liquid stools this morning per nursing. -s/p EGD on 02/18/2019 showing two large ulcers at the pylorus and edema causing partial gastric outlet obstruction. There was bile flowing back and small opening but scope could not be advanced beyond the pylorus. - This is likely partial GOO and not a complete obstruction,will likely improve over time with the ulcers healing - currently tolerating clears - UGI series pending - continue PPI and daily bowel regimen - will follow Subjective Date of service: 02/20/19 Principal diagnosis: abnormal CT Interval history: No acute distress. No evidence of abd pain or N/V. BM x 1 this am per nursing. Objective - Constitutional Vitals: Temp Pulse Resp BP Pulse Ox 98.2 F 40 L 16 119/51 100 02/20/19 00:00 02/20/19 00:00 02/20/19 00:00 02/20/19 00:00 02/19/19 21:12 General appearance: no acute distress - Respiratory Respiratory effort: normal - Cardiovascular Rhythm: regular - Gastrointestinal General gastrointestinal: Present: soft, distended (slightly), normal bowel sounds - Labs CBC & Chem 7: 02/18/19 04:13 02/20/19 06:42 Labs: Laboratory Results - last 24 hr 02/19/19 02/20/19 10:41 06:42 Sodium 142 140 Potassium 3.3 L 3.1 L Chloride 105.7 104.7 Carbon Dioxide 19 L 23 Anion Gap 21 15 BUN 22 H 9 Creatinine 0.8 0.6 L Estimated GFR > 60 > 60 BUN/Creatinine Ratio 28 15 Glucose 97 105 H Calcium 7.8 L 7.7 L
[2019-02-20] MEDS: NACL 0.9% 1000 ML 1,000 ML IV SCH (10:37)
[2019-02-20] MEDS: SODIUM CHLORIDE FLUSH SYRINGE 10 ML IV SCH ×2 (10:38→22:55)
[2019-02-20] MEDS: LOVENOX SUB-Q SCH (10:38)
[2019-02-20] MEDS: ISOPTO CARPINE OU SCH (10:39)
[2019-02-20] MEDS: PROTONIX IV SCH ×2 (10:39→22:54)
[2019-02-20] MEDS: LOPRESSOR PO SCH ×2 (10:40→22:54)
[2019-02-20] MEDS: K-DUR PO SCH ×2 (10:40→11:26)
--- NOTE | 2019-02-20 12:48 | Progress Note ---
Assessment and Plan Assessment and plan: Patient is a 79-year-old male with PMHx of glaucoma and blindness, Mental retardation, HTN, kidney stones, gall stones, who was brought to the ER with c/o nausea, vomiting and diarrhea x 1 week. Pt is nonverbal therefore cannot provide medical, the history was given by the patient's caregiver who reports the patient had diarrhea 3 times one week ago. The complex care nurse practitioner add that the started vomiting started 3 days ago, and had a total of 5 lbs wt loss within 1 week. According to the complex care nurse practitioner, pt had not been able to tolerate any PO intake, he was taking to see his PCP (Dr. Beverly) yesterday who recommended that the patient come to the ER for evaluation. Patient has not tolerated any by mouth. In the ER a CT scan of the abdomen showed a moderate amount of fecal material in the distal colon and rectum, possible fecal impaction. Dilated stomach containing fluid and food material with thickening and edema of the gastric antrum and pylori. Pt was initially treated in the ER and admitted for further evaluation and treatment. * Abd CT showed a moderate amount of fecal material in the distal colon/rectum, possible fecal impaction, and dilated stomach containing fluid/food material with thickening and edema of the gastric antrum/pylorus (focal gastritis vs PUD?) * Initial repeat KUB showed improvement. Repeat was showing more of the same. * This gentleman underwent EGD with finding of 2 large clean-based ulcers likely causing partial obstruction on the pylorus area. * Patient continued with Enema and began to have loose stool * Awaiting repeat KUB in am and if stable and tolerating full liquid, he can be discharged with BID PPI 1. Fecal impaction/Severe Constipation/ Gastric Outlet obstruction * EGD FINDINGS: * There was two large ~1-1.5 cm clean based deep ulcers with edema at the pylor us region causing partial obstruction at the pylorus. The scope could not be traversed beyond the pylorus due to edema and distortion. However, bile was seen flowing back. Biopsies were obtained from the ulcer site. * Mild patchy erythematous mucosa noted in the gastric body and fundus. * GE junction at 38 cm from the incisors * Distal esophagus revealed mild to moderate esophagitis likely partly due to NG tube trauma as well. 2. Acute gastritis 3. Nausea and vomiting (due to #1 and 2) 4. Blindness 5. Mental retardation with associated dementia 6. Cholelithiasis 7. Hypertension (stable) 8. Dehydration 9. Acute Cystitis 10. Replace K Plan: Continue supportive care Fleet enema/digital removable of impaction scheduled and PRN Surgery and GI input noted abd CT showed a moderate amount of fecal material in the distal colon/rectum, possible fecal impaction, and dilated stomach containing fluid/food material with thickening and edema of the gastric antrum/pylorus (focal gastritis vs PUD?) Continue enema Resume home meds DVT prophylaxis Patient's plan of care discussed with complex care nurse practitioner s/p enemas x 3 with good results per nursing- will continue pending upper Gi series [facility]. History Interval history: Patient was seen and evaluated this morning, patient tolerated his diet. Hospitalist Physical - Physical exam Narrative exam: General appearance: Present: no acute distress, Contracted - Respiratory Respiratory: bilateral: CTA - Cardiovascular Heart Sounds: Present: S1 & S2 - Extremities Extremities: no ischemia, No edema Peripheral Pulses: within normal limits - Abdominal General gastrointestinal: Present: soft, non-tender Male genitourinary: Present: deferred - Rectal Rectal Exam: deferred - Integumentary Integumentary: Present: clear, warm, dry - Musculoskeletal Musculoskeletal: strength equal bilaterally - Psychiatric Psychiatric: other (unable to evaluate) - Neurologic Neurologic: other (unable to evaluate) - Constitutional Vitals: Temp Pulse Resp BP Pulse Ox 98.2 F 40 L 16 119/51 100 02/20/19 00:00 02/20/19 00:00 02/20/19 00:00 02/20/19 00:00 02/19/19 21:12 General appearance: Present: no acute distress Results - Labs CBC & Chem 7: 02/18/19 04:13 02/20/19 06:42 Labs: Laboratory Last Values WBC 6.5 K/mm3 (4.5-11.0) 02/18/19 04:13 RBC 4.06 M/mm3 (3.65-5.03) 02/18/19 04:13 Hgb 12.5 gm/dl (11.8-15.2) 02/18/19 04:13 Hct 36.8 % (35.5-45.6) 02/18/19 04:13 MCV 91 fl (84-94) 02/18/19 04:13 MCH 31 pg (28-32) 02/18/19 04:13 MCHC 34 % (32-34) 02/18/19 04:13 RDW 14.5 % (13.2-15.2) 02/18/19 04:13 Plt Count 281 K/mm3 (140-440) 02/18/19 04:13 Lymph % (Auto) 14.0 % (13.4-35.0) 02/15/19 20:06 [place] % (Auto) 15.0 % (0.0-7.3) H 02/15/19 20:06 Eos % (Auto) 1.5 % (0.0-4.3) 02/15/19 20:06 Baso % (Auto) 1.1 % (0.0-1.8) 02/15/19 20:06 Lymph # 0.9 K/mm3 (1.2-5.4) L 02/15/19 20:06 [place] # 1.0 K/mm3 (0.0-0.8) H 02/15/19 20:06 Eos # 0.1 K/mm3 (0.0-0.4) 02/15/19 20:06 Baso # 0.1 K/mm3 (0.0-0.1) 02/15/19 20:06 Seg Neutrophils % 68.4 % (40.0-70.0) 02/15/19 20:06 Seg Neutrophils # 4.4 K/mm3 (1.8-7.7) 02/15/19 20:06 PT 13.5 Sec. (12.2-14.9) 02/17/19 05:24 INR 1.06 (0.87-1.13) 02/17/19 05:24 Sodium 140 mmol/L (137-145) 02/20/19 06:42 Potassium 3.1 mmol/L (3.6-5.0) L 02/20/19 06:42 Chloride 104.7 mmol/L (98-107) 02/20/19 06:42 Carbon Dioxide 23 mmol/L (22-30) 02/20/19 06:42 15 mmol/L 02/20/19 06:42 BUN 9 mg/dL (9-20) 02/20/19 06:42 0.6 mg/dL (0.8-1.5) L 02/20/19 06:42 Estimated GFR > 60 ml/min 02/20/19 06:42 15 % 02/20/19 06:42 Glucose 105 mg/dL (75-100) H 02/20/19 06:42 Calcium 7.7 mg/dL (8.4-10.2) L 02/20/19 06:42 0.40 mg/dL (0.1-1.2) 02/15/19 20:06 AST 22 units/L (5-40) 02/15/19 20:06 ALT 11 units/L (7-56) 02/15/19 20:06 67 units/L (35-129) 02/15/19 20:06 6.7 g/dL (6.3-8.2) 02/15/19 20:06 3.3 g/dL (3.9-5) L 02/15/19 20:06 1.0 % 02/15/19 20:06 30 units/L (13-60) 02/15/19 20:06 Yellow (Yellow) 02/16/19 02:00 Slightly-cloudy (Clear) 02/16/19 02:00 6.0 (5.0-7.0) 02/16/19 02:00 Ur Specific [place] 1.034 (1.003-1.030) H 02/16/19 02:00 <15 mg/dl mg/dL (Negative) 02/16/19 02:00 Neg mg/dL (Negative) 02/16/19 02:00 Neg mg/dL (Negative) 02/16/19 02:00 Sm (Negative) 02/16/19 02:00 Neg (Negative) 02/16/19 02:00 Neg (Negative) 02/16/19 02:00 2.0 mg/dL (<2.0) 02/16/19 02:00 Ur Leukocyte Esterase Tr (Negative) 02/16/19 02:00 22.0 /HPF (0.0-6.0) H 02/16/19 02:00 13.0 /HPF (0.0-6.0) 02/16/19 02:00 U Epithel Cells (Auto) 3.0 /HPF (0-13.0) 02/16/19 02:00 1+ /HPF (Negative) 02/16/19 02:00 Few /HPF 02/16/19 02:00 1+ /HPF 02/16/19 02:00 Active Medications - Current Medications Current Medications: Generic Name Dose Route Start Last Admin Trade Name Freq PRN Reason Stop Dose Admin Enoxaparin Sodium 40 mg 02/16/19 10:00 02/20/19 10:38 Lovenox SUB-Q 40 mg QDAY@1000 EDOUARD Administration Sodium Chloride 1,000 mls @ 75 mls/hr 02/16/19 01:00 02/20/19 10:37 Nacl 0.9% 1000 Ml IV 75 mls/hr DIRECT EDOUARD Administration Latanoprost 1 drops 02/16/19 18:00 02/19/19 18:22 Latanoprost 0.005% OU 1 drops QPM EDOUARD Administration Metoclopramide HCl 10 mg 02/16/19 00:34 Reglan IV Q6H PRN Nausea And Vomiting Metoprolol Tartrate 25 mg 02/16/19 10:00 02/20/19 10:40 Lopressor PO Not Given BID EDOUARD Mineral Oil 133 ml 02/18/19 10:00 Fleet Mineral Oil [place] QDAY PRN Constipation Ondansetron HCl 4 mg 02/16/19 00:34 Zofran IV Q8H PRN Nausea And Vomiting Pantoprazole Sodium 40 mg 02/16/19 22:00 02/20/19 10:39 Protonix IV 40 mg BID EDOUARD Administration Pilocarpine HCl 1 drops 02/16/19 10:00 02/20/19 10:39 Isopto Carpine OU 1 drops DAILY EDOUARD Administration Sodium Chloride 10 ml 02/16/19 10:00 02/20/19 10:38 Sodium Chloride Flush Syringe 10 Ml IV 10 ml BID EDOUARD Administration Sodium Chloride 10 ml 02/16/19 00:34 02/19/19 10:06 Sodium Chloride Flush Syringe 10 Ml IV 10 ml PRN PRN Administration LINE FLUSH Nutrition/Malnutrition Assess - Dietary Evaluation Nutrition/Malnutrition Findings: Nutrition Notes Start: 02/16/19 16:40 Freq: Status: Active Protocol: Document 02/16/19 16:40 RM (Rec: 02/16/19 16:44 RM [id number]) Nutrition Notes Need for Assessment generated from: MST Initial or Follow up Brief Note Other Pertinent Diagnosis Mental retardation, Gallstones ,N/V X 3 days,Nonverbal,Fecal impaction,Blind Current Diet Cardiac/Consistent CHO Labs/Tests Reviewed Pertinent Medications Reviewed Height 5 ft 4 in Weight 58.513 kg [place] Body Weight (kg) 59.09 BMI 22.1 Subjective/Other Information Screened for malnutrition. Per tech pt ate all of breakfast. Noted lunch at bedside w/everything but the salad eaten. Denied pt vomiting. No temporal or orbital wasting . Burn Absent Trauma Absent Nutrition Intervention Revisit per MD consult or patient Sign Off request:
--- NOTE | 2019-02-20 14:11 | Fluoroscopy Report ---
UPPER GI SERIES HISTORY: Gastric outlet obstruction, ulcer disease. FINDINGS: A modified upper GI series was performed with Gastrografin to evaluate for gastric outlet obstruction . Recent EGD demonstrated distal gastric ulcers with suggestion of gastric outlet obstruction. This was a difficult examination secondary to poor patient cooperation. The esophagus is patent and n ormal caliber. Multiple tertiary contractions were witnessed throughout this exam consistent with eso phageal spasm. Occasional episodes of reflux to the proximal esophagus was also witnessed. The gastric cavity does appear mildly dilated and gas filled. Distal gastric ulcers are not clearly i dentified on single contrast Gastrografin exam. There is no evidence for extravasation. There is no e vidence for gastric outlet obstruction. The duodenum does opacify rather quickly and has an unremarka ble mucosal pattern. IMPRESSION: No evidence for gastric outlet obstruction. See above. Esophageal dysmotility. Occasional episodes of reflux. Fluoroscopic images: 12. Fluoroscopy time: 1.4 minutes. Signer Name: George Burt Jr, MD Signed: 02/20/2019 2:06 PM Workstation Name: [id number]
[2019-02-20] MEDS: LATANOPROST 0.005% OU SCH (18:37)
--- NOTE | 2019-02-20 21:01 | Progress Note ---
Assessment and Plan Pt status quo. UGI - no evidence of gastric outlet obst or PUD Abd - non tender but still distended significant ileus still present on UGI study still hypokalemic at 3.1 imp persistent ileus secondary to hypokalemia rec: keep NPO until K corrected to see if ileus resolves RN to contact hospitalist now for K boluses consider possible reglan if ileus persists once K corrected will repeat K level in am Selected Entries 02/19/19 02/20/19 07:38 14:02 Temperature 98.0 F 97.1 F L Pulse Rate 108 H 93 H Respiratory 18 18 Rate Blood Pressure 127/54 139/71 Laboratory Tests 02/20/19 06:42 Potassium 3.1 L Objective Vital Signs - 12hr 02/20/19 14:02 Temperature 97.1 F L Pulse Rate 93 H Respiratory 18 Rate Blood Pressure 139/71 O2 Sat by Pulse 99 Oximetry - Labs 02/18/19 04:13 02/20/19 06:42 Diabetes panel 02/20/19 Range/Units 06:42 Sodium 140 (137-145) mmol/L Potassium 3.1 L (3.6-5.0) mmol/L Chloride 104.7 (98-107) mmol/L Carbon Dioxide 23 (22-30) mmol/L BUN 9 (9-20) mg/dL Creatinine 0.6 L (0.8-1.5) mg/dL Glucose 105 H (75-100) mg/dL Calcium 7.7 L (8.4-10.2) mg/dL Calcium panel 02/20/19 Range/Units 06:42 Calcium 7.7 L (8.4-10.2) mg/dL Pituitary panel 02/20/19 Range/Units 06:42 Sodium 140 (137-145) mmol/L Potassium 3.1 L (3.6-5.0) mmol/L Chloride 104.7 (98-107) mmol/L Carbon Dioxide 23 (22-30) mmol/L BUN 9 (9-20) mg/dL Creatinine 0.6 L (0.8-1.5) mg/dL Glucose 105 H (75-100) mg/dL Calcium 7.7 L (8.4-10.2) mg/dL Adrenal panel 02/20/19 Range/Units 06:42 Sodium 140 (137-145) mmol/L Potassium 3.1 L (3.6-5.0) mmol/L Chloride 104.7 (98-107) mmol/L Carbon Dioxide 23 (22-30) mmol/L BUN 9 (9-20) mg/dL Creatinine 0.6 L (0.8-1.5) mg/dL Glucose 105 H (75-100) mg/dL Calcium 7.7 L (8.4-10.2) mg/dL
[2019-02-21] MEDS ORDERED: K-DUR PO ONE ×2 (03:15→11:05)
--- NOTE | 2019-02-21 07:46 | Progress Note ---
Assessment and Plan Pt without compl. RN states pt had BM yesterday. + flatus this am Abd less distended today. non tender am labs not drawn yet. surgically stable f/u on K attempt cl liq no carbonated rec - keep HOB up 30 degrees due to pt's gastroparesis? Selected Entries 02/21/19 05:31 Temperature 97.9 F Respiratory 16 Rate Blood Pressure 128/57 Objective Vital Signs - 12hr 02/20/19 02/20/19 02/20/19 21:24 22:00 22:54 Temperature 98.6 F Respiratory 17 17 Rate Blood Pressure 138/56 138/56 02/21/19 05:31 Temperature 97.9 F Respiratory 16 Rate Blood Pressure 128/57 - Labs 02/18/19 04:13 02/20/19 22:00 Diabetes panel 02/20/19 02/20/19 Range/Units 06:42 22:00 Sodium 140 (137-145) mmol/L Potassium 3.1 L 3.0 L (3.6-5.0) mmol/L Chloride 104.7 (98-107) mmol/L Carbon Dioxide 23 (22-30) mmol/L BUN 9 (9-20) mg/dL Creatinine 0.6 L (0.8-1.5) mg/dL Glucose 105 H (75-100) mg/dL Calcium 7.7 L (8.4-10.2) mg/dL Calcium panel 02/20/19 Range/Units 06:42 Calcium 7.7 L (8.4-10.2) mg/dL Pituitary panel 02/20/19 02/20/19 Range/Units 06:42 22:00 Sodium 140 (137-145) mmol/L Potassium 3.1 L 3.0 L (3.6-5.0) mmol/L Chloride 104.7 (98-107) mmol/L Carbon Dioxide 23 (22-30) mmol/L BUN 9 (9-20) mg/dL Creatinine 0.6 L (0.8-1.5) mg/dL Glucose 105 H (75-100) mg/dL Calcium 7.7 L (8.4-10.2) mg/dL Adrenal panel 02/20/19 02/20/19 Range/Units 06:42 22:00 Sodium 140 (137-145) mmol/L Potassium 3.1 L 3.0 L (3.6-5.0) mmol/L Chloride 104.7 (98-107) mmol/L Carbon Dioxide 23 (22-30) mmol/L BUN 9 (9-20) mg/dL Creatinine 0.6 L (0.8-1.5) mg/dL Glucose 105 H (75-100) mg/dL Calcium 7.7 L (8.4-10.2) mg/dL
[2019-02-21 09:16] LABS: BUN/Creatinine Ratio 6; Blood Urea Nitrogen 4 mg/dL (9-20); Calcium 8.3 mg/dL (8.4-10.2); Hemolysis Index 24
[2019-02-21] MEDS: LOPRESSOR PO SCH (10:06)
[2019-02-21] MEDS: LOVENOX SUB-Q SCH (10:06)
[2019-02-21] MEDS: PROTONIX IV SCH ×2 (10:06→22:47)
[2019-02-21] MEDS: SODIUM CHLORIDE FLUSH SYRINGE 10 ML IV SCH ×2 (10:06→22:00)
[2019-02-21] MEDS: ISOPTO CARPINE OU SCH (10:06)
--- NOTE | 2019-02-21 10:39 | Gastroenterology Progress Note ---
Assessment and Plan 1.fecal impaction/constipation 2. Nausea/vomiting - concerning for GOO, PUD, -abd CT showed a moderate amount of fecal material in the distal colon/rectum, possible fecal impaction, and dilated stomach containing fluid/food material with thickening and edema of the gastric antrum/pylorus (focal gastritis vs PUD?) -etiology-likely partial GOO and not a complete obstruction,will likely improve over time with the ulcers healing -s/p EGD on 02/18/2019 showing two large ulcers at the pylorus and edema causing partial gastric outlet obstruction. There was bile flowing back and small opening but scope could not be advanced beyond the pylorus. -UGI series yesterday w/o signs of GOO -clinically, patient's abdomen is slightly distended but improved. BM x 1 this am. Tolerating PO per nursing. -advance diet as tolerated -continue PPI and daily bowel regimen for constipation -will sign off and defer further management per surgery Subjective Date of service: 02/21/19 Principal diagnosis: abnormal CT Interval history: No acute distress. No evidence of abd pain or N/V. BM x 1 this am per nursing. Objective - Constitutional Vitals: Temp Pulse Resp BP Pulse Ox 97.9 F 93 H 16 128/57 99 02/21/19 05:31 02/20/19 14:02 02/21/19 05:31 02/21/19 05:31 02/20/19 14:02 General appearance: no acute distress - Respiratory Respiratory effort: normal - Cardiovascular Rhythm: regular - Gastrointestinal General gastrointestinal: Present: soft, distended (slightly), normal bowel sounds - Labs CBC & Chem 7: 02/18/19 04:13 02/21/19 08:45 Labs: Laboratory Results - last 24 hr 02/20/19 02/21/19 22:00 08:45 Sodium 145 Potassium 3.0 L 3.1 L Chloride 110.7 H Carbon Dioxide 20 L Anion Gap 17 BUN 4 L Creatinine 0.7 L Estimated GFR > 60 BUN/Creatinine Ratio 6 Glucose 98 Calcium 8.3 L
[2019-02-21] MEDS: K-DUR PO SCH ×2 (11:49→14:12)
--- NOTE | 2019-02-21 14:48 | Progress Note ---
Assessment and Plan Assessment and plan: Patient is a 79-year-old male with PMHx of glaucoma and blindness, Mental retardation, HTN, kidney stones, gall stones, who was brought to the ER with c/o nausea, vomiting and diarrhea x 1 week. Pt is nonverbal therefore cannot provide medical, the history was given by the patient's caregiver who reports the patient had diarrhea 3 times one week ago. The manager wound care add that the started vomiting started 3 days ago, and had a total of 5 lbs wt loss within 1 week. According to the manager wound care, pt had not been able to tolerate any PO intake, he was taking to see his PCP (Dr. Beverly) yesterday who recommended that the patient come to the ER for evaluation. Patient has not tolerated any by mouth. In the ER a CT scan of the abdomen showed a moderate amount of fecal material in the distal colon and rectum, possible fecal impaction. Dilated stomach containing fluid and food material with thickening and edema of the gastric antrum and pylori. Pt was initially treated in the ER and admitted for further evaluation and treatment. * Abd CT showed a moderate amount of fecal material in the distal colon/rectum, possible fecal impaction, and dilated stomach containing fluid/food material with thickening and edema of the gastric antrum/pylorus (focal gastritis vs PUD?) * Initial repeat KUB showed improvement. Repeat was showing more of the same. * This gentleman underwent EGD with finding of 2 large clean-based ulcers likely causing partial obstruction on the pylorus area. * Patient continued with Enema and began to have loose stool * Awaiting repeat KUB in am and if stable and tolerating full liquid, he can be discharged with BID PPI 1. Fecal impaction/Severe Constipation/ Gastric Outlet obstruction * EGD FINDINGS: * There was two large ~1-1.5 cm clean based deep ulcers with edema at the pylor us region causing partial obstruction at the pylorus. The scope could not be traversed beyond the pylorus due to edema and distortion. However, bile was seen flowing back. Biopsies were obtained from the ulcer site. * Mild patchy erythematous mucosa noted in the gastric body and fundus. * GE junction at 38 cm from the incisors * Distal esophagus revealed mild to moderate esophagitis likely partly due to NG tube trauma as well. 2. Acute gastritis 3. Nausea and vomiting (due to #1 and 2) 4. Blindness 5. Mental retardation with associated dementia 6. Cholelithiasis 7. Hypertension (stable) 8. Dehydration 9. Acute Cystitis 10. Replace K Plan: Continue supportive care Fleet enema/digital removable of impaction scheduled and PRN Surgery and GI input noted abd CT showed a moderate amount of fecal material in the distal colon/rectum, possible fecal impaction, and dilated stomach containing fluid/food material with thickening and edema of the gastric antrum/pylorus (focal gastritis vs PUD?) Continue enema Resume home meds DVT prophylaxis Patient's plan of care discussed with manager wound care s/p enemas x 3 with good results per nursing- will continue pending upper Gi series Discussed with Personal senior care staff. Patient still has distended abdomen, potassium is low, magnesium level is normal. Repleted. Check potassium. Possible discharge tomorrow back to personal home care. History Interval history: Patient was seen and evaluated this morning, patient still has distended abdomen, patient tolerated clear liquid diet, has bowel movement.. Hospitalist Physical - Physical exam Narrative exam: General appearance: Present: no acute distress, Contracted - Respiratory Respiratory: bilateral: CTA - Cardiovascular Heart Sounds: Present: S1 & S2 - Extremities Extremities: no ischemia, No edema Peripheral Pulses: within normal limits - Abdominal General gastrointestinal: Present: soft, non-tender, distended Male genitourinary: Present: deferred - Rectal Rectal Exam: deferred - Integumentary Integumentary: Present: clear, warm, dry - Musculoskeletal Musculoskeletal: strength equal bilaterally - Psychiatric Psychiatric: other (unable to evaluate) - Neurologic Neurologic: other (unable to evaluate) - Constitutional Vitals: Temp Pulse Resp BP Pulse Ox 98.2 F 84 20 149/67 92 02/21/19 13:55 02/21/19 13:55 02/21/19 13:55 02/21/19 13:55 02/21/19 13:55 General appearance: Present: no acute distress Results - Labs CBC & Chem 7: 02/18/19 04:13 02/21/19 08:45 Labs: Laboratory Last Values WBC 6.5 K/mm3 (4.5-11.0) 02/18/19 04:13 RBC 4.06 M/mm3 (3.65-5.03) 02/18/19 04:13 Hgb 12.5 gm/dl (11.8-15.2) 02/18/19 04:13 Hct 36.8 % (35.5-45.6) 02/18/19 04:13 MCV 91 fl (84-94) 02/18/19 04:13 MCH 31 pg (28-32) 02/18/19 04:13 MCHC 34 % (32-34) 02/18/19 04:13 RDW 14.5 % (13.2-15.2) 02/18/19 04:13 Plt Count 281 K/mm3 (140-440) 02/18/19 04:13 Lymph % (Auto) 14.0 % (13.4-35.0) 02/15/19 20:06 [place] % (Auto) 15.0 % (0.0-7.3) H 02/15/19 20:06 Eos % (Auto) 1.5 % (0.0-4.3) 02/15/19 20:06 Baso % (Auto) 1.1 % (0.0-1.8) 02/15/19 20:06 Lymph # 0.9 K/mm3 (1.2-5.4) L 02/15/19 20:06 [place] # 1.0 K/mm3 (0.0-0.8) H 02/15/19 20:06 Eos # 0.1 K/mm3 (0.0-0.4) 02/15/19 20:06 Baso # 0.1 K/mm3 (0.0-0.1) 02/15/19 20:06 Seg Neutrophils % 68.4 % (40.0-70.0) 02/15/19 20:06 Seg Neutrophils # 4.4 K/mm3 (1.8-7.7) 02/15/19 20:06 PT 13.5 Sec. (12.2-14.9) 02/17/19 05:24 INR 1.06 (0.87-1.13) 02/17/19 05:24 Sodium 145 mmol/L (137-145) 02/21/19 08:45 Potassium 3.1 mmol/L (3.6-5.0) L 02/21/19 08:45 Chloride 110.7 mmol/L (98-107) H 02/21/19 08:45 Carbon Dioxide 20 mmol/L (22-30) L 02/21/19 08:45 17 mmol/L 02/21/19 08:45 BUN 4 mg/dL (9-20) L 02/21/19 08:45 0.7 mg/dL (0.8-1.5) L 02/21/19 08:45 Estimated GFR > 60 ml/min 02/21/19 08:45 6 % 02/21/19 08:45 Glucose 98 mg/dL (75-100) 02/21/19 08:45 Calcium 8.3 mg/dL (8.4-10.2) L 02/21/19 08:45 Magnesium 1.80 mg/dL (1.7-2.3) 02/21/19 08:45 0.40 mg/dL (0.1-1.2) 02/15/19 20:06 AST 22 units/L (5-40) 02/15/19 20:06 ALT 11 units/L (7-56) 02/15/19 20:06 67 units/L (35-129) 02/15/19 20:06 6.7 g/dL (6.3-8.2) 02/15/19 20:06 3.3 g/dL (3.9-5) L 02/15/19 20:06 1.0 % 02/15/19 20:06 30 units/L (13-60) 02/15/19 20:06 Yellow (Yellow) 02/16/19 02:00 Slightly-cloudy (Clear) 02/16/19 02:00 6.0 (5.0-7.0) 02/16/19 02:00 Ur Specific [place] 1.034 (1.003-1.030) H 02/16/19 02:00 <15 mg/dl mg/dL (Negative) 02/16/19 02:00 Neg mg/dL (Negative) 02/16/19 02:00 Neg mg/dL (Negative) 02/16/19 02:00 Sm (Negative) 02/16/19 02:00 Neg (Negative) 02/16/19 02:00 Neg (Negative) 02/16/19 02:00 2.0 mg/dL (<2.0) 02/16/19 02:00 Ur Leukocyte Esterase Tr (Negative) 02/16/19 02:00 22.0 /HPF (0.0-6.0) H 02/16/19 02:00 13.0 /HPF (0.0-6.0) 02/16/19 02:00 U Epithel Cells (Auto) 3.0 /HPF (0-13.0) 02/16/19 02:00 1+ /HPF (Negative) 02/16/19 02:00 Few /HPF 02/16/19 02:00 1+ /HPF 02/16/19 02:00 Active Medications - Current Medications Current Medications: Generic Name Dose Route Start Last Admin Trade Name Freq PRN Reason Stop Dose Admin Enoxaparin Sodium 40 mg 02/16/19 10:00 02/21/19 10:06 Lovenox SUB-Q 40 mg QDAY@1000 EDOUARD Administration Sodium Chloride 1,000 mls @ 75 mls/hr 02/16/19 01:00 02/20/19 10:37 Nacl 0.9% 1000 Ml IV 75 mls/hr DIRECT EDOUARD Administration Latanoprost 1 drops 02/16/19 18:00 02/20/19 18:37 Latanoprost 0.005% OU 1 drops QPM EDOUARD Administration Metoclopramide HCl 10 mg 02/16/19 00:34 Reglan IV Q6H PRN Nausea And Vomiting Metoprolol Tartrate 25 mg 02/16/19 10:00 02/21/19 10:06 Lopressor PO 25 mg BID EDOUARD Administration Mineral Oil 133 ml 02/18/19 10:00 Fleet Mineral Oil MO QDAY PRN Constipation Ondansetron HCl 4 mg 02/16/19 00:34 Zofran IV Q8H PRN Nausea And Vomiting Pantoprazole Sodium 40 mg 02/16/19 22:00 02/21/19 10:06 Protonix IV 40 mg BID EDOUARD Administration Pilocarpine HCl 1 drops 02/16/19 10:00 02/21/19 10:06 Isopto Carpine OU 1 drops DAILY EDOUARD Administration Sodium Chloride 10 ml 02/16/19 10:00 02/21/19 10:06 Sodium Chloride Flush Syringe 10 Ml IV 10 ml BID EDOUARD Administration Sodium Chloride 10 ml 02/16/19 00:34 02/19/19 10:06 Sodium Chloride Flush Syringe 10 Ml IV 10 ml PRN PRN Administration LINE FLUSH Nutrition/Malnutrition Assess - Dietary Evaluation Nutrition/Malnutrition Findings: Nutrition Notes Start: 02/16/19 16:40 Freq: Status: Active Protocol: Document 02/16/19 16:40 RM (Rec: 02/16/19 16:44 RM [id number]) Nutrition Notes Need for Assessment generated from: [facility] Initial or Follow up Brief Note Other Pertinent Diagnosis Mental retardation, Gallstones ,N/V X 3 days,Nonverbal,Fecal impaction,Blind Current Diet Cardiac/Consistent CHO Labs/Tests Reviewed Pertinent Medications Reviewed Height 5 ft 4 in Weight 58.513 kg [place] Body Weight (kg) 59.09 BMI 22.1 Subjective/Other Information Screened for malnutrition. Per tech pt ate all of breakfast. Noted lunch at bedside w/everything but the salad eaten. Denied pt vomiting. No temporal or orbital wasting . Burn Absent Trauma Absent Nutrition Intervention Revisit per MD consult or patient Sign Off request:
[2019-02-21] MEDS: LATANOPROST 0.005% OU SCH (17:47)
[2019-02-22] MEDS: LOPRESSOR PO SCH ×2 (05:23→09:13)
[2019-02-22 06:14] LABS: BUN/Creatinine Ratio 3; Blood Urea Nitrogen 2 mg/dL (9-20); Calcium 8.2 mg/dL (8.4-10.2); Hemolysis Index 31
[2019-02-22 08:14] VITALS: BP 147/45
--- NOTE | 2019-02-22 08:52 | Discharge Summary ---
Providers - Providers Date of Admission: 02/15/19 23:56 Attending physician: MALLORY MILTON MD 02/16/19 06:31 Consult to Physician [CONS] Routine Comment: Consulting Provider: BRENDEN BASURTO Physician Instructions: Reason For Exam: stool impaction 02/16/19 08:21 Physical Therapy Evaluation and Treat [CONS] Routine Comment: Reason For Exam: Weakness 02/16/19 10:31 Consult to Physician [CONS] Routine Comment: KENDALL Consulting Provider: SOFIA PAREDES Physician Instructions: EZRA WAS NOTIFIED Reason For Exam: gastric stasis Primary care physician: SKYLER JOHNSON MD Hospitalization Condition: Critical Pertinent studies: CT abdomen and pelvis EGD Hospital course: 79-year-old male with PMHx of glaucoma and blindness, Mental retardation, HTN, kidney stones, gall stones, who was brought to the ER with c/o nausea, vomiting and diarrhea x 1 week. Pt is nonverbal therefore cannot provide medical history was given by the patient's caregiver who reports the patient had diarrhea 3 times one week ago. The care transport nurse add that the started vomiting started 3 days ago, and had a total of 5 lbs wt loss within 1 week. According to the care transport nurse, pt had not been able to tolerate any PO intake, he was taking to see his PCP (Dr. Johnson) yesterday who recommended that the patient come to the ER for evaluation. Patient has not tolerated any by mouth. In the ER a CT scan of the abdomen showed a moderate amount of fecal material in the distal colon and rectum, possible fecal impaction. Dilated stomach containing fluid and food material with thickening and edema of the gastric antrum and pylori. Pt was initially treated in the ER and admitted for further evaluation and treatment. * Abd CT showed a moderate amount of fecal material in the distal colon/rectum, possible fecal impaction, and dilated stomach containing fluid/food material with thickening and edema of the gastric antrum/pylorus (focal gastritis vs PUD?) * Initial repeat KUB showed improvement. Repeat was showing more of the same. * This gentleman underwent EGD with finding of 2 large clean-based ulcers likely causing partial obstruction on the pylorus area. * Patient continued with Enema and began to have loose stool * Repeat UGI series showed resolution of the obstruction. Patient tolerated diet and discharged home with PPI. Patient was discharged back to [facility]. * EGD FINDINGS: * There was two large ~1-1.5 cm clean based deep ulcers with edema at the pylorus region causing partial obstruction at the pylorus. The scope could not be traversed beyond the pylorus due to edema and distortion. However, bile was seen flowing back. Biopsies were obtained from the ulcer site. * Mild patchy erythematous mucosa noted in the gastric body and fundus. * GE junction at 38 cm from the incisors * Distal esophagus revealed mild to moderate esophagitis likely partly due to NG tube trauma as well. 2. Acute gastritis 3. Nausea and vomiting (due to #1 and 2) 4. Blindness 5. Mental retardation with associated dementia 6. Cholelithiasis 7. Hypertension (stable) 8. Dehydration 9. Acute Cystitis 10. Replace K Disposition: DC-01 TO HOME OR SELFCARE Time spent for discharge: 32 minutes - Discharge Diagnoses (1) Colonic obstruction Status: Acute (2) Fecal impaction in rectum Status: Acute (3) Nausea & vomiting Status: Acute Qualifiers: Vomiting type: unspecified Vomiting Intractability: intractable Qualified Code(s): R11.2 - Nausea with vomiting, unspecified (4) Nonverbal Status: Acute (5) Weight loss Status: Acute Core Measure Documentation - Palliative Care Palliative Care/ Comfort Measures: Not Applicable - Core Measures Any of the following diagnoses?: none Exam - Physical Exam Narrative exam: General appearance: Present: no acute distress, Contracted - Respiratory Respiratory: bilateral: CTA - Cardiovascular Heart Sounds: Present: S1 & S2 - Extremities Extremities: no ischemia, No edema Peripheral Pulses: within normal limits - Abdominal General gastrointestinal: Present: soft, non-tender, distended Male genitourinary: Present: deferred - Rectal Rectal Exam: deferred - Integumentary Integumentary: Present: clear, warm, dry - Musculoskeletal Musculoskeletal: strength equal bilaterally - Psychiatric Psychiatric: other (unable to evaluate) - Neurologic Neurologic: other (unable to evaluate) - Constitutional Vitals: Temp Pulse Resp BP Pulse Ox 98.6 F 84 18 147/45 99 02/22/19 08:07 02/22/19 08:07 02/22/19 08:07 02/22/19 08:07 02/22/19 08:07 Plan Activity: advance as tolerated Weight Bearing Status: Weight Bear as Tolerated Diet: advance as tolerated Follow up with: SKYLER JOHNSON MD [Primary Care Provider] - 3-5 Days Prescriptions: Bisacodyl [Dulcolax suppos] 10 mg UT QDAY PRN #20 supp.rect PRN Reason: Constipation Polyethylene Glycol 3350 [Miralax 3350] 17 gm PO BID #30 packet Pantoprazole [Protonix TAB] 40 mg PO QDAY #30 tablet
[2019-02-22] MEDS: PROTONIX IV SCH (09:11)
[2019-02-22] MEDS: LOVENOX SUB-Q SCH (09:12)
[2019-02-22] MEDS: SODIUM CHLORIDE FLUSH SYRINGE 10 ML IV SCH (09:12)
[2019-02-22] MEDS: NACL 0.9% 1000 ML 1,000 ML IV SCH (09:13)
[2019-02-22] MEDS: ISOPTO CARPINE OU SCH (09:18)
[2019-02-23] MEDS ORDERED: PROTONIX PO SCH (10:00)
== END 2019-02-22 14:00 | disposition home or self-care (01) | DRG 381 ==
LOC: ED 19:18 → 2B-ACE 23:56
PROVIDERS: ADMIT Internal Medicine; ATTEND Internal Medicine
PROC: 0D9670Z Drainage of Stomach with Drainage Device, Via Natural or Artificial Opening (ICD-10-PCS; 2019-02-16)
PROC: 0DB78ZX Excision of Stomach, Pylorus, Via Natural or Artificial Opening Endoscopic, Diagnostic (ICD-10-PCS; principal; 2019-02-18)
DX: K31.1 Adult hypertrophic pyloric stenosis (principal); K56.609 Unspecified intestinal obstruction, unspecified as to partial versus complete obstruction; N30.00 Acute cystitis without hematuria; K56.7 Ileus, unspecified; K56.41 Fecal impaction; K52.9 Noninfective gastroenteritis and colitis, unspecified; K29.00 Acute gastritis without bleeding; K80.20 Calculus of gallbladder without cholecystitis without obstruction; I10 Essential (primary) hypertension; G47.30 Sleep apnea, unspecified; H54.7 Unspecified visual loss; F78 Other intellectual disabilities; E86.0 Dehydration; E87.6 Hypokalemia; K20.8 Other esophagitis; N40.0 Benign prostatic hyperplasia without lower urinary tract symptoms; F03.90 Unspecified dementia, unspecified severity, without behavioral disturbance, psychotic disturbance, mood disturbance, and anxiety; Z87.442 Personal history of urinary calculi; Z79.899 Other long term (current) drug therapy
CPT/HCPCS: 36415; 74018; 74022; 74177; 74247; 80048; 80053; 81001; 83690; 83735; 84132; 85025; 85027; 85610; 87086; 87116; 88305; 88342; 94760; G0378; C9113; J0696; J1650; J2060; J2405; J2704; J3480; J7030; Q9963; Q9967

== ENCOUNTER 2019-07-24 22:05 | Emergency (ER) | payer MEDICARE, MEDICAID | END 2019-07-25 03:25 | disposition left against medical advice (07) | LOC: ED 22:05 | DX: R11.10 Vomiting, unspecified (principal); Z53.21 Procedure and treatment not carried out due to patient leaving prior to being seen by health care provider ==

== ENCOUNTER 2019-07-26 20:54 | Inpatient (IN) | payer MEDICAID, MEDICARE ==
--- NOTE | 2019-07-26 21:39 | Emergency Department Report ---
Blank Doc - Documentation Documentation: 79-year-old male that presents with vomiting. Unable to keep him foods and li quids. This initial assessment/diagnostic orders/clinical plan/treatment(s) is/are subject to change based on patient's health status, clinical progression and re- assessment by fellow clinical providers in the ED. Further treatment and workup at subsequent clinical providers discretion. Patient/guardians urged not to elope from the ED as their condition may be serious if not clinically assessed and managed. Initial orders include: 1- Patient sent to MAIN ED for further evaluation and treatment 2- labs 3- UA 4- Xr abd
--- NOTE | 2019-07-26 22:45 | XRay Report ---
ABDOMEN 2 VIEW(S) INDICATION / CLINICAL INFORMATION: Nausea and vomiting for 2 days.. COMPARISON: 02/19/2019. FINDINGS: TUBES / LINES: None. BOWEL GAS PATTERN: The stomach appears dilated and fluid-filled. The bowel gas pattern is otherwise n ormal. FREE AIR / EXTRALUMINAL GAS: None seen. ADDITIONAL FINDINGS: There are a couple of nonspecific calcifications in the right mid abdomen, one o f which represents a renal calculus, and the other could possibly represent a proximal ureteral calcu tho. 2 renal calculi were present on a CT of the abdomen from 02/15/2019 and the larger calcification a ppears to have moved inferomedially. There is mild patchy parenchymal disease in the right lower lung laterally. IMPRESSION: 1. 2 calcifications in the right mid abdomen, one of which represents a renal calculus. The other kimmy cification could be in the proximal right ureter. 2. The stomach appears dilated and fluid-filled. 3. Mild patchy right lower lobe pneumonia. Signer Name: Lamin Donohue MD Signed: 07/26/2019 10:40 PM Workstation Name: [id number]
[2019-07-26 22:58] LABS: Basophils % (Auto) 0.2 % (0.0-1.8); Hematocrit 29.4 % (35.5-45.6); Hemoglobin 9.7 gm/dl (11.8-15.2); Lymphocytes # (Auto) 0.5 K/mm3 (1.2-5.4); Lymphocytes % (Auto) 6.9 % (13.4-35.0); Mean Corpuscular HGB Conc 33 % (32-34); Mean Corpuscular Volume 78 fl (84-94); Monocytes # (Auto) 0.8 K/mm3 (0.0-0.8); Monocytes % (Auto) 10.5 % (0.0-7.3); Platelet Count 341 K/mm3 (140-440); Red Blood Count 3.75 M/mm3 (3.65-5.03); Red Cell Distribution Width 18.6 % (13.2-15.2)
[2019-07-26 23:25] LABS: Alanine Aminotransferase 10 units/L (7-56); Albumin 2.9 g/dL (3.9-5); BUN/Creatinine Ratio 31; Blood Urea Nitrogen 28 mg/dL (9-20); Calcium 8.8 mg/dL (8.4-10.2); Hemolysis Index 5
--- NOTE | 2019-07-27 00:38 | Emergency Department Report ---
ED General Adult HPI - General Chief complaint: Nausea/Vomiting/Diarrhea Stated complaint: GEO TROUBLE SWALLOWING Time Seen by Provider: 07/26/19 21:38 Source: family Mode of arrival: Wheelchair Limitations: Altered Mental Status, Physical Limitation - History of Present Illness Initial comments: Patient is a 79-year-old mellitus emergency room with complaints of nausea vomiting, difficulty swallowing, difficulty breathing, shortness of breath, cough. Patient began to cough 24 hours ago. Patient's nausea and vomiting and difficulty swallowing started at 5 PM tonight. Patient shortness of breath started earlier this morning. Patient is unable to swallow food. patient unable to have by mouth intake. Patient's caregivers at bedside. Patient is nonverbal. -: Sudden Consistency: constant Improves with: rest Worsens with: eating Associated Symptoms: cough, nausea/vomiting, shortness of breath Treatments Prior to Arrival: none - Related Data Home Medications Medication Instructions Recorded Confirmed Last Taken Latanoprost 1 drop OU DAILY 03/04/14 02/16/19 03/05/14 Pilocarpine 4% [Isopto Carpine] 1 drop OU DAILY 03/04/14 02/16/19 03/05/14 Previous Rx's Medication Instructions Recorded Last Taken Type Metoprolol [Lopressor TAB] 25 mg PO BID #60 tablet 03/08/14 Unknown Rx Pantoprazole [Protonix TAB] 40 mg PO QDAY #30 tablet 02/22/19 Unknown Rx Polyethylene Glycol 3350 [Miralax 17 gm PO BID #30 packet 02/22/19 Unknown Rx 3350] bisacodyL [Dulcolax suppos] 10 mg MD QDAY PRN #20 supp.rect 02/22/19 Unknown Rx Allergies Allergy/AdvReac Type Severity Reaction Status Date / Time No Known Allergies Allergy Verified 03/04/14 14:44 ED Review of Systems ROS: Stated complaint: GEO TROUBLE SWALLOWING Other details as noted in HPI Comment: Unobtainable due to pts medical conditions ED Past Medical Hx - Past Medical History Previous Medical History?: Yes Hx Hypertension: Yes Hx Liver Disease: Yes (gallbladder stones) Hx Renal Disease: Yes (kidney spones) Hx Dementia: Yes 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 Hypertension. BPH. Blind - Surgical History Past Surgical History?: Yes Additional Surgical History: TURP - Social History Smoking Status: Never Smoker Substance Use Type: None - Medications Home Medications: Home Medications Medication Instructions Recorded Confirmed Last Taken Type Latanoprost 1 drop OU DAILY 03/04/14 02/16/19 03/05/14 History Pilocarpine 4% [Isopto Carpine] 1 drop OU DAILY 03/04/14 02/16/19 03/05/14 History Metoprolol [Lopressor TAB] 25 mg PO BID #60 tablet 03/08/14 02/16/19 Unknown Rx Pantoprazole [Protonix TAB] 40 mg PO QDAY #30 tablet 02/22/19 Unknown Rx Polyethylene Glycol 3350 [Miralax 17 gm PO BID #30 packet 02/22/19 Unknown Rx 3350] bisacodyL [Dulcolax suppos] 10 mg MD QDAY PRN #20 supp.rect 02/22/19 Unknown Rx ED Physical Exam - General Limitations: No Limitations General appearance: alert, other - Head Head exam: Present: atraumatic, normocephalic - Eye Eye exam: Present: normal appearance, PERRL Pupils: Present: normal accommodation - ENT ENT exam: Present: mucous membranes dry - Neck Neck exam: Present: normal inspection - Respiratory Respiratory exam: Present: respiratory distress, rhonchi, accessory muscle use - Cardiovascular Cardiovascular Exam: Present: regular rate, normal rhythm. Absent: systolic murmur, diastolic murmur, rubs, gallop - GI/Abdominal GI/Abdominal exam: Present: soft, normal bowel sounds. Absent: distended, guarding - Rectal Rectal exam: Present: heme (+) stool - Extremities Exam Extremities exam: Present: normal inspection - Back Exam Back exam: Present: normal inspection - Neurological Exam Neurological exam: Present: altered - Expanded Neurological Exam Expanded Best Eye Response ([place]): (2) open to pain Best Motor Response ([place]): (5) localizes to pain Best Verbal Response ([place]): (1) no verbal response [place] Total: 8 - Skin Skin exam: Present: warm, dry, intact, normal color. Absent: rash ED Course Vital Signs 07/26/19 21:08 Temperature 98.0 F Pulse Rate 99 H Respiratory 20 Rate Blood Pressure 150/54 O2 Sat by Pulse 99 Oximetry - Reevaluation(s) Reevaluation #1: Hemoccult done since the patient is anemic and doesn't have a history of anemia. Patient Hemoccult positive. 07/27/19 01:34 - Consultations Consultation #1: GI consult. 07/27/19 01:[address] garcia and he recommends admission and he will see her patient a morning and a PPI. 07/27/19 01:47 Consultation #2: Hospitalist was consulted for admission. Hospitalist admit patient. 07/27/19 01:49 ED Medical Decision Making - Lab Data Result diagrams: 07/26/19 22:40 07/26/19 22:40 - Radiology Data Radiology results: report reviewed, image reviewed Report reviewed.. And shows right lower lobe pneumonia - Medical Decision Making Patient is a 79-year-old male that presents emergency room with complaints of shortness of breath, difficulty breathing, cough and nausea vomiting. Patient found to have right lower lobe pneumonia. Patient labs essentially unremarkable except for loculi abnormalities and anemia. Due to the patient's anemia, the patient had a Hemoccult in the ER. Hemoccult was positive for occult blood. GI was consulted. Recommendations were received from GI. Patient will require admission to treat the to treat the patient's pneumonia with IV antibiotics as patient is unable tolerate by mouth intake. Patient clinical findings consistent with pneumonia, dehydration. Patient admitted to the hospitalist service. - Differential Diagnosis cough, shortness of breath, pneumonia, nausea vomiting, aspiration. Critical Care Time: Yes Critical care time in (mins) excluding proc time.: 35 Critical care attestation.: If time is entered above; I have spent that time in minutes in the direct care of this critically ill patient, excluding procedure time. Critical Care Time: 35 minutes ED Disposition Clinical Impression: Cough, Difficulty breathing, SOB (shortness of breath), Dehydration, Nonverbal, Hypokalemia Nausea & vomiting Qualifiers: Vomiting type: unspecified Vomiting Intractability: non-intractable Qualified Code(s): R11.2 - Nausea with vomiting, unspecified Altered mental status Qualifiers: Altered mental status type: unspecified Qualified Code(s): R41.82 - Altered mental status, unspecified Pneumonia Qualifiers: Pneumonia type: due to unspecified organism Laterality: right Lung location: lower lobe of lung Qualified Code(s): J18.9 - Pneumonia, unspecified organism Anemia Qualifiers: Anemia type: unspecified type Qualified Code(s): D64.9 - Anemia, unspecified GI bleed Qualifiers: GI bleed type/associated pathology: unspecified gastrointestinal hemorrhage type Qualified Code(s): K92.2 - Gastrointestinal hemorrhage, unspecified Disposition: [id number] OP ADMIT IP TO THIS HOSP Is pt being admited?: Yes Does the pt Need Aspirin: No Condition: Critical Time of Disposition: 01:37
[2019-07-27] MEDS ORDERED: CEFEPIME/NS 2 GM/100 ML 2 GM/100 ML BAG IV ONE (01:19)
[2019-07-27] MEDS ORDERED: PANTOPRAZOLE 40 MG INJ IV ONE ×2 (02:01→02:59)
[2019-07-27] MEDS ORDERED: ACETAMINOPHEN 650 MG RECT SUPP PR PRN (02:13)
[2019-07-27] MEDS ORDERED: ONDANSETRON 4 MG/2 ML INJ IV PRN (02:13)
--- NOTE | 2019-07-27 02:15 | History and Physical Report ---
History of Present Illness History of present illness: 79 year old man with mental retardation, hypertension and glaucoma, gastric ulcers, blind was brought to to the emergency room by the caregiver he was not his usual self. After he came home from the day program, she was feeding the patient and it appeared to her that he had difficulty swallowing. The patient is non-verbal, lives in a senior care, history is per senior care personnel. In the emergency room his chest x-ray shows pneumonia, started on cefepime. His hemoglobin was noted to be 9.9, decrease from 12 when he was last seen here in February 2019. Rectal was done which was heme positive A review of systems is unobtainable PAST MEDICAL HISTORY: Gastric ulcer, hypertension, glaucoma, mental retardation, blind, nonverbal PAST SURGICAL HISTORY: None SOCIAL HISTORY:Lives in a senior care, no alcohol, tobacco, drugs FAMILY HISTORY: Hypertension Medications and Allergies Allergies Allergy/AdvReac Type Severity Reaction Status Date / Time No Known Allergies Allergy Verified 03/04/14 14:44 Home Medications Medication Instructions Recorded Confirmed Last Taken Type Latanoprost 1 drop OU DAILY 03/04/14 02/16/19 03/05/14 History Pilocarpine 4% [Isopto Carpine] 1 drop OU DAILY 03/04/14 02/16/19 03/05/14 History Metoprolol [Lopressor TAB] 25 mg PO BID #60 tablet 03/08/14 02/16/19 Unknown Rx Pantoprazole [Protonix TAB] 40 mg PO QDAY #30 tablet 02/22/19 Unknown Rx Polyethylene Glycol 3350 [Miralax 17 gm PO BID #30 packet 02/22/19 Unknown Rx 3350] bisacodyL [Dulcolax suppos] 10 mg [place] QDAY PRN #20 supp.rect 02/22/19 Unknown Rx Active Meds: Active Medications Sodium Chloride (Nacl 0.9% 1000 Ml) 1,000 mls @ 999 mls/hr IV BOLUS ONE Stop: 07/27/19 02:19 Exam - Physical Exam Narrative exam: Gen. appearance: Patient lying in bed, no apparent distress HEENT: Normocephalic, atraumatic, pupils equally round and reactive to light, extraocular movement intact, and no sclericterus,. No JVD or thyromegaly or nodule,neck supple, no carotid bruit ,mucous membranes moist, unable to assess oral cavity Heart: S1, S2, regular rate and rhythm Lungs: Clear to auscultation anteriorly bilaterally, breathing comfortable Abdomen: Positive bowel sounds, soft, nondistended, no organomegaly Extremity: No edema, cyanosis, clubbing Skin: No rash, nodules, warm, dry Neuro: Difficult to assess Rectal: Heme positive - Constitutional Vitals: Temp Pulse Resp BP Pulse Ox 98.0 F 99 H 20 150/54 99 07/26/19 21:08 07/26/19 21:08 07/26/19 21:08 07/26/19 21:08 07/26/19 21:08 Results - Labs CBC & Chem 7: 07/26/19 22:40 07/26/19 22:40 Labs: Abnormal lab results 07/26/19 07/26/19 Range/Units 22:40 22:40 Hgb 9.7 L (11.8-15.2) gm/dl Hct 29.4 L (35.5-45.6) % MCV 78 L (84-94) fl MCH 26 L (28-32) pg RDW 18.6 H (13.2-15.2) % Lymph % (Auto) 6.9 L (13.4-35.0) % Placer % (Auto) 10.5 H (0.0-7.3) % Lymph # 0.5 L (1.2-5.4) K/mm3 Seg Neutrophils % 82.4 H (40.0-70.0) % Potassium 3.3 L (3.6-5.0) mmol/L Chloride 95.8 L (98-107) mmol/L BUN 28 H (9-20) mg/dL Glucose 152 H (75-100) mg/dL Total Protein 5.8 L (6.3-8.2) g/dL Albumin 2.9 L (3.9-5) g/dL - Imaging and Cardiology Chest x-ray: report reviewed Abdominal x-ray: report reviewed Assessment and Plan Assessment Aspiration pneumonia Start IV Zosyn, follow cultures Dysphasia/Anemia with heme positive stool Consult GI, n.p.o., start IV fluids Check serial hemoglobin Continue Protonix Hypokalemia Replete potassium Hypertension Start IV hydralazine as needed for blood pressure control Mental retardation stable Glaucoma, stable start DVT prophylaxis
[2019-07-27] MEDS: SODIUM CHLORIDE 0.9% 1000 ML 1,000 ML IV ONE (02:20)
[2019-07-27] MEDS ORDERED: hydrALAZINE 20 MG/1 ML INJ IV PRN (02:31)
[2019-07-27] MEDS ORDERED: PIPERACILLIN/TAZOBACTAM 3.375 3.375 GM/50 ML BAG IV ONE (02:59)
[2019-07-27] MEDS ORDERED: POTASSIUM CHLORIDE 10 MEQ 10 MEQ/100 ML BAG IV ONE ×3 (02:59→06:46)
[2019-07-27] MEDS ORDERED: SODIUM CHLORIDE 0.45% 1000 ML 1,000 ML IV SCH (03:00)
[2019-07-27] MEDS: PIPERACILLIN/TAZOBACTAM 3.375 3.375 GM/50 ML BAG IV SCH ×2 (03:15→17:11)
[2019-07-27] MEDS: POTASSIUM CHLORIDE 10 MEQ 10 MEQ/100 ML BAG IV SCH ×5 (03:20→13:08)
[2019-07-27 05:08] LABS: Basophils % (Auto) 0.1 % (0.0-1.8); Eosinophils % (Auto) 0.2 % (0.0-4.3); Hematocrit 26.2 % (35.5-45.6); Hemoglobin 8.5 gm/dl (11.8-15.2); Lymphocytes # (Auto) 0.6 K/mm3 (1.2-5.4); Lymphocytes % (Auto) 10.3 % (13.4-35.0); Mean Corpuscular HGB Conc 33 % (32-34); Mean Corpuscular Volume 79 fl (84-94); Monocytes # (Auto) 0.7 K/mm3 (0.0-0.8); Monocytes % (Auto) 12.5 % (0.0-7.3); Platelet Count 264 K/mm3 (140-440); Red Blood Count 3.32 M/mm3 (3.65-5.03); Red Cell Distribution Width 18.9 % (13.2-15.2)
[2019-07-27] MEDS: D5W/0.45% NACL 1,000 ML IV SCH (05:20)
[2019-07-27] MEDS ORDERED: NACL IV ONE (05:23)
[2019-07-27] MEDS ORDERED: D5W IV ONE (05:23)
[2019-07-27] MEDS ORDERED: D5W/0.45% NACL 1,000 ML IV ONE (05:26)
[2019-07-27 05:31] LABS: BUN/Creatinine Ratio 30; Blood Urea Nitrogen 24 mg/dL (9-20); Hemolysis Index 5
[2019-07-27 09:32] LABS: Bilirubin,Urine NEG (Negative); Blood,Urine SM (Negative); Color,Urine Yellow (Yellow); Hyaline Casts,Urine 1 /LPF; Protein,Urine <15 mg/dL mg/dL (Negative); Urobilinogen,Urine < 2.0 mg/dL (<2.0)
[2019-07-27] MEDS: PANTOPRAZOLE 40 MG INJ IV SCH ×2 (10:17→23:11)
--- NOTE | 2019-07-27 10:51 | Gastroenterology Consultation ---
<EZRA PATEL - Last Filed: 07/27/19 10:52> History of Present Illness - Reason for Consult Consult date: 07/27/19 GI bleed/anemia Requesting physician: ERNESTO SMITH III - History of Present Illness Patient is a 79 y/o male [facility] resident with PMH of HTN, glaucoma/blindness, mental retardation, kidney stones, BPH, gallstones, and PUD who was brought to ED for evaluation of vomiting/difficulty swallowing, SOB, and cough. GI has been consulted for GI bleed/anemia. Patient is previously known to our service from prior hospital consult 02/2019 for fecal impaction/constipation and PUD with partial GOO. This morning patient was resting in bed w/o acute distress. Patient nonverbal and unable to provide history (hx obtained via chart review). Per nursing, patient had episode of coffee-ground emesis this am. No hematemesis or hematochezia. No evidence of abd pain or distention. Abdomen benign upon exam. Rectal exam revealed brown stool. Currently receiving antibiotics for possible aspiration pneumonia. Protonix and Miralax on home medication list as previously prescribed/recommended. Past History Past Medical History: other (see PPI) Past Surgical History: TURP Social history: other ([facility] resident) Family history: hypertension Medications and Allergies Allergies Allergy/AdvReac Type Severity Reaction Status Date / Time No Known Allergies Allergy Verified 03/04/14 14:44 Home Medications Medication Instructions Recorded Confirmed Last Taken Type Latanoprost 1 drop OU DAILY 03/04/14 07/27/19 03/05/14 History Pilocarpine 4% [Isopto Carpine] 1 drop OU DAILY 03/04/14 07/27/19 03/05/14 History Metoprolol [Lopressor TAB] 25 mg PO BID #60 tablet 03/08/14 07/27/19 Unknown Rx Pantoprazole [Protonix TAB] 40 mg PO QDAY #30 tablet 02/22/19 07/27/19 Unknown Rx Polyethylene Glycol 3350 [Miralax 17 gm PO BID #30 packet 02/22/19 07/27/19 Unknown Rx 3350] bisacodyL [Dulcolax suppos] 10 mg [place] QDAY PRN #20 supp.rect 02/22/19 07/27/19 Unknown Rx Active Meds: Active Medications Acetaminophen (Tylenol) 650 mg UT Q4H PRN PRN Reason: Pain MILD(1-3)/Fever >100.5/[place] Hydralazine HCl (Apresoline) 5 mg IV Q6H PRN PRN Reason: Hypertension Dextrose/Sodium Chloride (D5/0.45ns) 1,000 mls @ 75 mls/hr IV DIRECT [facility] Last Admin: 07/27/19 05:20 Dose: 75 mls/hr Documented by: Piperacillin Sod/Tazobactam Sod (Zosyn/Ns 3.375gm/50ml) 3.375 gm in 50 mls @ 100 mls/hr IV Q8H [facility]; Protocol Last Admin: 07/27/19 03:15 Dose: 100 mls/hr Documented by: Potassium Chloride (Kcl 10meq/100ml) 10 meq in 100 mls @ 100 mls/hr IV Q1H [facility] Stop: 07/27/19 10:59 Last Admin: 07/27/19 10:20 Dose: 100 mls/hr Documented by: Ondansetron HCl (Zofran) 4 mg IV Q8H PRN PRN Reason: Nausea And Vomiting Pantoprazole Sodium (Protonix) 40 mg IV BID [facility] Last Admin: 07/27/19 10:17 Dose: 40 mg Documented by: Sodium Chloride (Sodium Chloride Flush Syringe 10 Ml) 10 ml IV BID [facility] Last Admin: 07/27/19 10:20 Dose: 10 ml Documented by: Sodium Chloride (Sodium Chloride Flush Syringe 10 Ml) 10 ml IV PRN PRN PRN Reason: LINE FLUSH medications reviewed/updated as required Review of Systems - Review of Systems ROS unobtainable: due to mental status Exam - Constitutional Vital Signs: Temp Pulse Resp BP Pulse Ox 98.0 F 90 17 129/51 95 07/26/19 21:08 07/27/19 08:30 07/27/19 08:30 07/27/19 08:30 07/27/19 09:10 General appearance: no acute distress - Respiratory Respiratory: bilateral: diminished - Cardiovascular Rhythm: regular - Gastrointestinal General gastrointestinal: Present: soft, non-distended, normal bowel sounds Rectal Exam: stool brown (multiple resaw operator present during exam-Mitchell CLARKE) - Integumentary Integumentary: Present: warm, dry - Neurologic Neurological: other (alert) - Labs CBC & Chem 7: 07/27/19 04:05 07/27/19 04:05 Lab Results: Laboratory Results - last 24 hr 07/26/19 07/26/19 07/27/19 22:40 22:40 04:05 WBC 7.7 5.8 RBC 3.75 3.32 L Hgb 9.7 L 8.5 L Hct 29.4 L 26.2 L MCV 78 L 79 L MCH 26 L 26 L MCHC 33 33 RDW 18.6 H 18.9 H Plt Count 341 264 Lymph % (Auto) 6.9 L 10.3 L [place] % (Auto) 10.5 H 12.5 H Eos % (Auto) 0.0 0.2 Baso % (Auto) 0.2 0.1 Lymph # 0.5 L 0.6 L [place] # 0.8 0.7 Eos # 0.0 0.0 Baso # 0.0 0.0 Seg Neutrophils % 82.4 H 76.9 H Seg Neutrophils # 6.3 4.5 Sodium 137 Potassium 3.3 L Chloride 95.8 L Carbon Dioxide 28 Anion Gap 17 BUN 28 H Creatinine 0.9 Estimated GFR > 60 BUN/Creatinine Ratio 31 Glucose 152 H Calcium 8.8 Total Bilirubin 0.50 AST 16 ALT 10 Alkaline Phosphatase 49 Total Protein 5.8 L Albumin 2.9 L Albumin/Globulin Ratio 1.0 Lipase 22 Urine Color Urine Turbidity Urine pH Ur Specific [place] Urine Protein Urine Glucose (UA) Urine Ketones Urine Blood Urine Nitrite Urine Bilirubin Urine Urobilinogen Ur Leukocyte Esterase Urine WBC (Auto) Urine RBC (Auto) U Epithel Cells (Auto) Hyaline Casts Urine Yeast (Budding) 07/27/19 07/27/19 04:05 09:06 WBC RBC Hgb Hct MCV MCH MCHC RDW Plt Count Lymph % (Auto) [place] % (Auto) Eos % (Auto) Baso % (Auto) Lymph # [place] # Eos # Baso # Seg Neutrophils % Seg Neutrophils # Sodium 137 Potassium 3.3 L Chloride 95.2 L Carbon Dioxide 25 Anion Gap 20 BUN 24 H Creatinine 0.8 Estimated GFR > 60 BUN/Creatinine Ratio 30 Glucose 118 H Calcium 8.0 L Total Bilirubin AST ALT Alkaline Phosphatase Total Protein Albumin Albumin/Globulin Ratio Lipase Urine Color Yellow Urine Turbidity Slightly-cloudy Urine pH 5.0 Ur Specific [place] 1.021 Urine Protein <15 mg/dl Urine Glucose (UA) Neg Urine Ketones Neg Urine Blood Sm Urine Nitrite Neg Urine Bilirubin Neg Urine Urobilinogen < 2.0 Ur Leukocyte Esterase Sm Urine WBC (Auto) 26.0 H Urine RBC (Auto) 32.0 U Epithel Cells (Auto) 6.0 Hyaline Casts 1 Urine Yeast (Budding) 2+ Assessment and Plan 1.GI bleed (coffee-ground emesis) 2.acute on chronic anemia -afebrile -WBC WNL; plt WNL -BUN 24 -LFTs WNL -H/H 8.5/26.2-trending down (drop from prior labs 02/2019) -continue to monitor H/H and transfuse as needed -patient with episode of CGE this am per nursing. No hematemesis or hematochezia. Rectal exam with brown stool. -abd x-ray showed stomach distended and fluid filled -abd CT 02/15/19-showed a moderate amount of fecal material in the distal colon/rectum, possible fecal impaction, and dilated stomach containing fluid/food material with thickening and edema of the gastric antrum/pylorus (focal gastritis vs PUD?) -EGD on 02/18/2019 showing two large ulcers at the pylorus and edema causing partial gastric outlet obstruction. There was bile flowing back and small opening but scope could not be advanced beyond the pylorus. -f/u Upper GI series 02/20/19 w/o signs of GOO (likely partial GOO and not a complete obstruction) -etiology-likely 2/2 known PUD as above -will schedule for repeat EGD today for further evaluation -Keep NPO -continue PPI -continue supportive care -will follow <ABNER CARTER R - Last Filed: 07/27/19 16:48> Medications and Allergies Active Meds: Active Medications Acetaminophen (Tylenol) 650 mg UT Q4H PRN PRN Reason: Pain MILD(1-3)/Fever >100.5/[place] Hydralazine HCl (Apresoline) 5 mg IV Q6H PRN PRN Reason: Hypertension Dextrose/Sodium Chloride (D5/0.45ns) 1,000 mls @ 75 mls/hr IV DIRECT [facility] Last Admin: 07/27/19 05:20 Dose: 75 mls/hr Documented by: Ampicillin Sodium/Sulbactam Sodium (Unasyn/Ns 1.5 Gm/50 Ml) 1.5 gm in 50 mls @ 100 mls/hr IV Q6HR [facility]; Protocol Ondansetron HCl (Zofran) 4 mg IV Q8H PRN PRN Reason: Nausea And Vomiting Pantoprazole Sodium (Protonix) 40 mg IV BID [facility] Last Admin: 07/27/19 10:17 Dose: 40 mg Documented by: Sodium Chloride (Sodium Chloride Flush Syringe 10 Ml) 10 ml IV BID [facility] Last Admin: 07/27/19 10:20 Dose: 10 ml Documented by: Sodium Chloride (Sodium Chloride Flush Syringe 10 Ml) 10 ml IV PRN PRN PRN Reason: LINE FLUSH Exam - Constitutional Vital Signs: Temp Pulse Resp BP Pulse Ox 99.0 F 87 20 91/44 99 07/27/19 12:01 07/27/19 12:01 07/27/19 12:01 07/27/19 13:31 07/27/19 12:01 - Labs CBC & Chem 7: 07/27/19 15:22 07/27/19 04:05 Lab Results: Laboratory Results - last 24 hr 07/26/19 07/26/19 07/27/19 22:40 22:40 04:05 WBC 7.7 5.8 RBC 3.75 3.32 L Hgb 9.7 L 8.5 L Hct 29.4 L 26.2 L MCV 78 L 79 L MCH 26 L 26 L MCHC 33 33 RDW 18.6 H 18.9 H Plt Count 341 264 Lymph % (Auto) 6.9 L 10.3 L [place] % (Auto) 10.5 H 12.5 H Eos % (Auto) 0.0 0.2 Baso % (Auto) 0.2 0.1 Lymph # 0.5 L 0.6 L [place] # 0.8 0.7 Eos # 0.0 0.0 Baso # 0.0 0.0 Seg Neutrophils % 82.4 H 76.9 H Seg Neutrophils # 6.3 4.5 Sodium 137 Potassium 3.3 L Chloride 95.8 L Carbon Dioxide 28 Anion Gap 17 BUN 28 H Creatinine 0.9 Estimated GFR > 60 BUN/Creatinine Ratio 31 Glucose 152 H Calcium 8.8 Total Bilirubin 0.50 AST 16 ALT 10 Alkaline Phosphatase 49 Total Protein 5.8 L Albumin 2.9 L Albumin/Globulin Ratio 1.0 Lipase 22 Urine Color Urine Turbidity Urine pH Ur Specific [place] Urine Protein Urine Glucose (UA) Urine Ketones Urine Blood Urine Nitrite Urine Bilirubin Urine Urobilinogen Ur Leukocyte Esterase Urine WBC (Auto) Urine RBC (Auto) U Epithel Cells (Auto) Hyaline Casts Urine Yeast (Budding) 07/27/19 07/27/19 07/27/19 04:05 09:06 15:22 WBC RBC Hgb 9.2 L Hct 28.6 L MCV MCH MCHC RDW Plt Count Lymph % (Auto) [place] % (Auto) Eos % (Auto) Baso % (Auto) Lymph # [place] # Eos # Baso # Seg Neutrophils % Seg Neutrophils # Sodium 137 Potassium 3.3 L Chloride 95.2 L Carbon Dioxide 25 Anion Gap 20 BUN 24 H Creatinine 0.8 Estimated GFR > 60 BUN/Creatinine Ratio 30 Glucose 118 H Calcium 8.0 L Total Bilirubin AST ALT Alkaline Phosphatase Total Protein Albumin Albumin/Globulin Ratio Lipase Urine Color Yellow Urine Turbidity Slightly-cloudy Urine pH 5.0 Ur Specific [place] 1.021 Urine Protein <15 mg/dl Urine Glucose (UA) Neg Urine Ketones Neg Urine Blood Sm Urine Nitrite Neg Urine Bilirubin Neg Urine Urobilinogen < 2.0 Ur Leukocyte Esterase Sm Urine WBC (Auto) 26.0 H Urine RBC (Auto) 32.0 U Epithel Cells (Auto) 6.0 Hyaline Casts 1 Urine Yeast (Budding) 2+ Assessment and Plan Pt seen and examined. Case discussed with Mr. Patterson, his caregiver for the last 21 years, who states pt has been on Protonix and Carafate since his endoscopy in 02/2019. Pt developed N/V 2 days ago, but o/w was well previously. Mr Patterson states that pt signs or mauro own consents, and he is also willing, but states that pt has not been deemed incompetent. Imp - N/V/CGE - H/H slightly down. Possible refractory PUD with GOO based on CT. Rec - NGT and monitor output - monitor H/H and transfuse as needed - PPI - if has persistent output, or evidence of bleeding, EGD and surgical evaluation for refractory PUD. - treat constipation.
--- NOTE | 2019-07-27 14:33 | Progress Note ---
Assessment and Plan Cultures: None A&P - 79 yo M with developmental delay, HTN admitted with altered mental status and concern for aspiration pneumonia. #Aspiration PNA - change noted by marketing technologist. Would de-escalate to Unasyn for now. Might be difficult to obtain sputum cultures based on patient co-operat ivity. Afebrile with a normal white count. Assumign stability would expect to discharge on Augmentin for a fairly short course. #GIB - for repeat EGD with GI. #Pyuria - very mild, and with heamturia in the sample. Cannot assess for symtpoms due to non-verbal status, however will be treat alongside PNA. Recommendations: - stopped Zosyn - Unasyn 1.5g q6h - follow up urine culture - ordered procalcitonin for AM. Thank you for the consult, will follow. Leigha Armenta MD [facility] ([facility]) M: [phone] O: [phone] F: [phone] Subjective Date of service: 07/27/19 Interval history: 79 yo M PMHx HTN, glaucoma, gastric ulcer presented to the hospital as he was noted to not be in his normal state of health by his caregiver. He was noted to have some difficulty swallowing, though he is non-verbal so the history was obtained from the chart and his marketing technologist. He was not noted to have fevers, sweats, chills at home. Has previous history of GIB for which he was seen here. Afebrile since admission with a white count of 6. No cultures have yet been obtained. Currently on Zosyn. Imaging personally reviewed: CXR - mild RLL PNA Objective - Exam Narrative Exam: Constitutional: Alert, cooperative. No acute distress Head, Ears, Nose: Normocephalic, atraumatic. External ears, nose normal Eyes: Conjunctivae/corneas clear. No icterus. No ptosis. Neck: Supple, no meningeal signs Oral: dentition fair, no thrush Cardiovascular: S1, S2 normal. Respiratory: Good air entry, clear to auscultation bilaterally GI: Soft, non-tender; bowel sounds normal. No peritoneal signs. Musculoskeletal: No pedal edema, no cyanosis. Skin: No rash or abscess Hem/Lymphatic: No palpable cervical or supraclavicular nodes. No lymphangitis Psych: Mood ok. Affect normal Neurological: Awake, alert, non-verbal No gross abnormality - Constitutional Vitals: Vital Signs Temp Pulse Resp BP Pulse Ox 99.0 F 87 20 91/44 99 07/27/19 12:01 07/27/19 12:01 07/27/19 12:01 07/27/19 13:31 07/27/19 12:01 Temperature -Last 24 Hours Temperature 99.0 F Temperature 98.6 F Temperature 98.0 F - Labs CBC & Chem 7: 07/27/19 04:05 07/27/19 04:05 Labs: Abnormal lab results 07/26/19 07/26/19 07/27/19 Range/Units 22:40 22:40 04:05 RBC 3.32 L (3.65-5.03) M/mm3 Hgb 9.7 L 8.5 L (11.8-15.2) gm/dl Hct 29.4 L 26.2 L (35.5-45.6) % MCV 78 L 79 L (84-94) fl MCH 26 L 26 L (28-32) pg RDW 18.6 H 18.9 H (13.2-15.2) % Lymph % (Auto) 6.9 L 10.3 L (13.4-35.0) % [place] % (Auto) 10.5 H 12.5 H (0.0-7.3) % Lymph # 0.5 L 0.6 L (1.2-5.4) K/mm3 Seg Neutrophils % 82.4 H 76.9 H (40.0-70.0) % Potassium 3.3 L (3.6-5.0) mmol/L Chloride 95.8 L (98-107) mmol/L BUN 28 H (9-20) mg/dL Glucose 152 H (75-100) mg/dL Calcium (8.4-10.2) mg/dL Total Protein 5.8 L (6.3-8.2) g/dL Albumin 2.9 L (3.9-5) g/dL Urine WBC (Auto) (0.0-6.0) /HPF 07/27/19 07/27/19 Range/Units 04:05 09:06 RBC (3.65-5.03) M/mm3 Hgb (11.8-15.2) gm/dl Hct (35.5-45.6) % MCV (84-94) fl MCH (28-32) pg RDW (13.2-15.2) % Lymph % (Auto) (13.4-35.0) % [place] % (Auto) (0.0-7.3) % Lymph # (1.2-5.4) K/mm3 Seg Neutrophils % (40.0-70.0) % Potassium 3.3 L (3.6-5.0) mmol/L Chloride 95.2 L (98-107) mmol/L BUN 24 H (9-20) mg/dL Glucose 118 H (75-100) mg/dL Calcium 8.0 L (8.4-10.2) mg/dL Total Protein (6.3-8.2) g/dL Albumin (3.9-5) g/dL Urine WBC (Auto) 26.0 H (0.0-6.0) /HPF
--- NOTE | 2019-07-27 15:02 | Consultation ---
History of Present Illness - Reason for Consult Consult date: 07/27/19 - History of Present Illness 79 yo M PMHx HTN, glaucoma, gastric ulcer presented to the hospital as he was noted to not be in his normal state of health by his caregiver. He was noted to have some difficulty swallowing, though he is non-verbal so the history was obtained from the chart and his strategic communications manager. He was not noted to have fevers, sweats, chills at home. Has previous history of GIB for which he was seen here. Afebrile since admission with a white count of 6. No cultures have yet been obtained. Currently on Zosyn. Imaging personally reviewed: CXR - mild RLL PNA Past History Past Medical History: other (see PPI) Past Surgical History: TURP Social history: other ([facility] resident) Family history: hypertension Medications and Allergies Allergies Allergy/AdvReac Type Severity Reaction Status Date / Time No Known Allergies Allergy Verified 03/04/14 14:44 Home Medications Medication Instructions Recorded Confirmed Last Taken Type Latanoprost 1 drop OU DAILY 03/04/14 07/27/19 03/05/14 History Pilocarpine 4% [Isopto Carpine] 1 drop OU DAILY 03/04/14 07/27/19 03/05/14 History Metoprolol [Lopressor TAB] 25 mg PO BID #60 tablet 03/08/14 07/27/19 Unknown Rx Pantoprazole [Protonix TAB] 40 mg PO QDAY #30 tablet 02/22/19 07/27/19 Unknown Rx Polyethylene Glycol 3350 [Miralax 17 gm PO BID #30 packet 02/22/19 07/27/19 Unknown Rx 3350] bisacodyL [Dulcolax suppos] 10 mg [place] QDAY PRN #20 supp.rect 02/22/19 07/27/19 Unknown Rx Active Meds: Active Medications Acetaminophen (Tylenol) 650 mg [place] Q4H PRN PRN Reason: Pain MILD(1-3)/Fever >100.5/[place] Hydralazine HCl (Apresoline) 5 mg IV Q6H PRN PRN Reason: Hypertension Dextrose/Sodium Chloride (D5/0.45ns) 1,000 mls @ 75 mls/hr IV DIRECT EDOUARD Last Admin: 07/27/19 05:20 Dose: 75 mls/hr Documented by: Ampicillin Sodium/Sulbactam Sodium (Unasyn/Ns 1.5 Gm/50 Ml) 1.5 gm in 50 mls @ 100 mls/hr IV Q6HR [facility]; Protocol Ondansetron HCl (Zofran) 4 mg IV Q8H PRN PRN Reason: Nausea And Vomiting Pantoprazole Sodium (Protonix) 40 mg IV BID [facility] Last Admin: 07/27/19 10:17 Dose: 40 mg Documented by: Sodium Chloride (Sodium Chloride Flush Syringe 10 Ml) 10 ml IV BID [facility] Last Admin: 07/27/19 10:20 Dose: 10 ml Documented by: Sodium Chloride (Sodium Chloride Flush Syringe 10 Ml) 10 ml IV PRN PRN PRN Reason: LINE FLUSH Review of Systems ROS unobtainable: due to mental status Physical Examination - Physical Exam Narrative exam: Constitutional: Alert, cooperative. No acute distress Head, Ears, Nose: Normocephalic, atraumatic. External ears, nose normal Eyes: Conjunctivae/corneas clear. No icterus. No ptosis. Neck: Supple, no meningeal signs Oral: dentition fair, no thrush Cardiovascular: S1, S2 normal. Respiratory: Good air entry, clear to auscultation bilaterally GI: Soft, non-tender; bowel sounds normal. No peritoneal signs. Musculoskeletal: No pedal edema, no cyanosis. Skin: No rash or abscess Hem/Lymphatic: No palpable cervical or supraclavicular nodes. No lymphangitis Psych: Mood ok. Affect normal Neurological: Awake, alert, non-verbal No gross abnormality - Constitutional Vitals: Vital Signs Temp Pulse Resp BP Pulse Ox 99.0 F 87 20 91/44 99 07/27/19 12:01 07/27/19 12:01 07/27/19 12:01 07/27/19 13:31 07/27/19 12:01 Temperature -Last 24 Hours Temperature 99.0 F Temperature 98.6 F Temperature 98.0 F Results - Labs CBC & Chem 7: 07/27/19 15:22 07/27/19 04:05 Labs: Abnormal lab results 07/26/19 07/26/19 07/27/19 Range/Units 22:40 22:40 04:05 RBC 3.32 L (3.65-5.03) M/mm3 Hgb 9.7 L 8.5 L (11.8-15.2) gm/dl Hct 29.4 L 26.2 L (35.5-45.6) % MCV 78 L 79 L (84-94) fl MCH 26 L 26 L (28-32) pg RDW 18.6 H 18.9 H (13.2-15.2) % Lymph % (Auto) 6.9 L 10.3 L (13.4-35.0) % [place] % (Auto) 10.5 H 12.5 H (0.0-7.3) % Lymph # 0.5 L 0.6 L (1.2-5.4) K/mm3 Seg Neutrophils % 82.4 H 76.9 H (40.0-70.0) % Potassium 3.3 L (3.6-5.0) mmol/L Chloride 95.8 L (98-107) mmol/L BUN 28 H (9-20) mg/dL Glucose 152 H (75-100) mg/dL Calcium (8.4-10.2) mg/dL Total Protein 5.8 L (6.3-8.2) g/dL Albumin 2.9 L (3.9-5) g/dL Urine WBC (Auto) (0.0-6.0) /HPF 07/27/19 07/27/19 Range/Units 04:05 09:06 RBC (3.65-5.03) M/mm3 Hgb (11.8-15.2) gm/dl Hct (35.5-45.6) % MCV (84-94) fl MCH (28-32) pg RDW (13.2-15.2) % Lymph % (Auto) (13.4-35.0) % [place] % (Auto) (0.0-7.3) % Lymph # (1.2-5.4) K/mm3 Seg Neutrophils % (40.0-70.0) % Potassium 3.3 L (3.6-5.0) mmol/L Chloride 95.2 L (98-107) mmol/L BUN 24 H (9-20) mg/dL Glucose 118 H (75-100) mg/dL Calcium 8.0 L (8.4-10.2) mg/dL Total Protein (6.3-8.2) g/dL Albumin (3.9-5) g/dL Urine WBC (Auto) 26.0 H (0.0-6.0) /HPF Assessment and Plan Cultures: None A&P - 79 yo M with developmental delay, HTN admitted with altered mental status and concern for aspiration pneumonia. #Aspiration PNA - change noted by strategic communications manager. Would de-escalate to Unasyn for now. Might be difficult to obtain sputum cultures based on patient co-oper ativity. Afebrile with a normal white count. Assumign stability would expect to discharge on Augmentin for a fairly short course. #GIB - for repeat EGD with GI. #Pyuria - very mild, and with heamturia in the sample. Cannot assess for symtpoms due to non-verbal status, however will be treat alongside PNA. Recommendations: - stopped Zosyn - Unasyn 1.5g q6h - follow up urine culture - ordered procalcitonin for AM. Thank you for the consult, will follow. Leigha Armenta MD [facility] ([facility]) M: [phone] O: [phone] F: [phone]
[2019-07-27 16:36] LABS: Hematocrit 28.6 % (35.5-45.6); Hemoglobin 9.2 gm/dl (11.8-15.2)
--- NOTE | 2019-07-27 16:47 | Event Note ---
Date: 07/27/19 Patient with vomiting. I discussed with Dr. Gonzalez. He recommends NG tube to LIS
[2019-07-27] MEDS: AMPICILLIN/SULBACTA 1.5GM/50ML 1.5 GM/50 ML BAG IV SCH ×2 (17:11→23:10)
[2019-07-27 20:35] LABS: Hematocrit 29.2 % (35.5-45.6); Hemoglobin 9.6 gm/dl (11.8-15.2)
[2019-07-28] MEDS: POTASSIUM CHLORIDE 10 MEQ 10 MEQ/100 ML BAG IV SCH ×2 (00:20→03:10)
[2019-07-28 05:47] LABS: Hematocrit 25.8 % (35.5-45.6); Hemoglobin 8.5 gm/dl (11.8-15.2)
[2019-07-28] MEDS: D5W/0.45% NACL 1,000 ML IV SCH ×2 (06:09→20:38)
[2019-07-28] MEDS: AMPICILLIN/SULBACTA 1.5GM/50ML 1.5 GM/50 ML BAG IV SCH ×3 (06:09→18:24)
--- NOTE | 2019-07-28 10:17 | Progress Note ---
Assessment and Plan Assessment and plan: Aspiration pneumonia Started IV Zosyn, follow cultures Dysphasia/Anemia with heme positive stool Consulted GI, n.p.o., start IV fluids Check serial hemoglobin Continue Protonix patient seen by GI, I discusseed with Dr. Gonzalez. Hypokalemia Replete potassium Hypertension Start IV hydralazine as needed for blood pressure control Intellectual disability Glaucoma, stable Full code status History Interval history: Altered mental status Difficulty swallowing Hospitalist Physical - Physical exam Narrative exam: GEN: Not in acute distress, lying in bed, HEENT: Normocephalic, atraumatic, Neck: supple, No JVD Lungs: Clear to auscultation bilaterally, no wheeze, heart;S1 and S2 reg, no murmurs Abd:soft, non tender, non distended, normal bowel sounds Ext: No edema, no clubbing, no cyanosis Neuro: lethargic, intellectual disability, non verbal, blind - Constitutional Vitals: Temp Pulse Resp BP Pulse Ox 97.7 F 92 H 20 129/51 100 07/28/19 04:50 07/28/19 04:50 07/28/19 04:50 07/28/19 04:50 07/28/19 04:50 Results - Labs CBC & Chem 7: 07/29/19 06:48 07/29/19 06:48 Labs: Laboratory Last Values WBC 5.8 K/mm3 (4.5-11.0) 07/27/19 04:05 RBC 3.32 M/mm3 (3.65-5.03) L 07/27/19 04:05 Hgb 8.5 gm/dl (11.8-15.2) L 07/28/19 04:08 Hct 25.8 % (35.5-45.6) L 07/28/19 04:08 MCV 79 fl (84-94) L 07/27/19 04:05 MCH 26 pg (28-32) L 07/27/19 04:05 MCHC 33 % (32-34) 07/27/19 04:05 RDW 18.9 % (13.2-15.2) H 07/27/19 04:05 Plt Count 264 K/mm3 (140-440) 07/27/19 04:05 Lymph % (Auto) 10.3 % (13.4-35.0) L 07/27/19 04:05 [place] % (Auto) 12.5 % (0.0-7.3) H 07/27/19 04:05 Eos % (Auto) 0.2 % (0.0-4.3) 07/27/19 04:05 Baso % (Auto) 0.1 % (0.0-1.8) 07/27/19 04:05 Lymph # 0.6 K/mm3 (1.2-5.4) L 07/27/19 04:05 [place] # 0.7 K/mm3 (0.0-0.8) 07/27/19 04:05 Eos # 0.0 K/mm3 (0.0-0.4) 07/27/19 04:05 Baso # 0.0 K/mm3 (0.0-0.1) 07/27/19 04:05 Seg Neutrophils % 76.9 % (40.0-70.0) H 07/27/19 04:05 Seg Neutrophils # 4.5 K/mm3 (1.8-7.7) 07/27/19 04:05 Sodium 137 mmol/L (137-145) 07/27/19 04:05 Potassium 3.3 mmol/L (3.6-5.0) L 07/27/19 04:05 Chloride 95.2 mmol/L (98-107) L 07/27/19 04:05 Carbon Dioxide 25 mmol/L (22-30) 07/27/19 04:05 Anion Gap 20 mmol/L 07/27/19 04:05 BUN 24 mg/dL (9-20) H 07/27/19 04:05 Creatinine 0.8 mg/dL (0.8-1.5) 07/27/19 04:05 Estimated GFR > 60 ml/min 07/27/19 04:05 BUN/Creatinine Ratio 30 % 07/27/19 04:05 Glucose 118 mg/dL (75-100) H 07/27/19 04:05 POC Glucose 125 (70-105) H 07/28/19 07:44 Calcium 8.0 mg/dL (8.4-10.2) L 07/27/19 04:05 Total Bilirubin 0.50 mg/dL (0.1-1.2) 07/26/19 22:40 AST 16 units/L (5-40) 07/26/19 22:40 ALT 10 units/L (7-56) 07/26/19 22:40 Alkaline Phosphatase 49 units/L (35-129) 07/26/19 22:40 Total Protein 5.8 g/dL (6.3-8.2) L 07/26/19 22:40 Albumin 2.9 g/dL (3.9-5) L 07/26/19 22:40 Albumin/Globulin Ratio 1.0 % 07/26/19 22:40 Lipase 22 units/L (13-60) 07/26/19 22:40 Urine Color Yellow (Yellow) 07/27/19 09:06 Urine Turbidity Slightly-cloudy (Clear) 07/27/19 09:06 Urine pH 5.0 (5.0-7.0) 07/27/19 09:06 Ur Specific [place] 1.021 (1.003-1.030) 07/27/19 09:06 Urine Protein <15 mg/dl mg/dL (Negative) 07/27/19 09:06 Urine Glucose (UA) Neg mg/dL (Negative) 07/27/19 09:06 Urine Ketones Neg mg/dL (Negative) 07/27/19 09:06 Urine Blood Sm (Negative) 07/27/19 09:06 Urine Nitrite Neg (Negative) 07/27/19 09:06 Urine Bilirubin Neg (Negative) 07/27/19 09:06 Urine Urobilinogen < 2.0 mg/dL (<2.0) 07/27/19 09:06 Ur Leukocyte Esterase Sm (Negative) 07/27/19 09:06 Urine WBC (Auto) 26.0 /HPF (0.0-6.0) H 07/27/19 09:06 Urine RBC (Auto) 32.0 /HPF (0.0-6.0) 07/27/19 09:06 U Epithel Cells (Auto) 6.0 /HPF (0-13.0) 07/27/19 09:06 Hyaline Casts 1 /LPF 07/27/19 09:06 Urine Yeast (Budding) 2+ /HPF 07/27/19 09:06 Active Medications - Current Medications Current Medications: Generic Name Dose Route Start Last Admin Trade Name Freq PRN Reason Stop Dose Admin Acetaminophen 650 mg 07/27/19 02:13 Tylenol [place] Q4H PRN Pain MILD(1-3)/Fever >100.5/H[place]INSON Bisacodyl 10 mg 07/27/19 16:51 Dulcolax [place] QDAY PRN Constipation Hydralazine HCl 5 mg 07/27/19 02:31 Apresoline IV Q6H PRN Hypertension Dextrose/Sodium Chloride 1,000 mls @ 75 mls/hr 07/27/19 03:00 07/28/19 06:09 D5/0.45ns IV 75 mls/hr DIRECT EDOUARD Administration Ampicillin Sodium/Sulbactam Sodium 1.5 gm in 50 mls @ 100 mls/hr 07/27/19 18:00 07/28/19 06:09 Unasyn/Ns 1.5 Gm/50 Ml IV 100 mls/hr Q6HR EDOUARD Administration Protocol Ondansetron HCl 4 mg 07/27/19 02:13 Zofran IV Q8H PRN Nausea And Vomiting Pantoprazole Sodium 40 mg 07/27/19 10:00 07/27/19 23:11 Protonix IV 40 mg BID EDOUARD Administration Sodium Chloride 10 ml 07/27/19 10:00 07/27/19 23:11 Sodium Chloride Flush Syringe 10 Ml IV 10 ml BID EDOUARD Administration Sodium Chloride 10 ml 07/27/19 02:13 Sodium Chloride Flush Syringe 10 Ml IV PRN PRN LINE FLUSH
--- NOTE | 2019-07-28 12:43 | Consultation ---
History of Present Illness Consult date: 07/28/19 Reason for consult: other (gastric outlet obstruction) - History of present illness History of present illness: 79 year old male with multiple sensory deficits nad PUD was admitted from ED after reporting from his care givers that he was not tolerating oral intake. He has since had imaging and vomiting consistent with gastric outlet obstruction. He was shown to have partial gastric outlet obstruction with ulcer disease 6 months ago. Pt is non verbal and cannot contribute to history. Past History Past Medical History: other (see PPI) Past Surgical History: TURP Social history: other ([facility] resident) Family history: hypertension Medications and Allergies Allergies Allergy/AdvReac Type Severity Reaction Status Date / Time No Known Allergies Allergy Verified 03/04/14 14:44 Home Medications Medication Instructions Recorded Confirmed Last Taken Type Latanoprost 1 drop OU DAILY 03/04/14 07/27/19 03/05/14 History Pilocarpine 4% [Isopto Carpine] 1 drop OU DAILY 03/04/14 07/27/19 03/05/14 History Metoprolol [Lopressor TAB] 25 mg PO BID #60 tablet 03/08/14 07/27/19 Unknown Rx Pantoprazole [Protonix TAB] 40 mg PO QDAY #30 tablet 02/22/19 07/27/19 Unknown Rx Polyethylene Glycol 3350 [Miralax 17 gm PO BID #30 packet 02/22/19 07/27/19 Unknown Rx 3350] bisacodyL [Dulcolax suppos] 10 mg [place] QDAY PRN #20 supp.rect 02/22/19 07/27/19 Unknown Rx Active Meds: Active Medications Acetaminophen (Tylenol) 650 mg PA Q4H PRN PRN Reason: Pain MILD(1-3)/Fever >100.5/[place] Bisacodyl (Dulcolax) 10 mg PA QDAY PRN PRN Reason: Constipation Hydralazine HCl (Apresoline) 5 mg IV Q6H PRN PRN Reason: Hypertension Dextrose/Sodium Chloride (D5/0.45ns) 1,000 mls @ 75 mls/hr IV DIRECT EDOUARD Last Admin: 07/28/19 06:09 Dose: 75 mls/hr Documented by: Ampicillin Sodium/Sulbactam Sodium (Unasyn/Ns 1.5 Gm/50 Ml) 1.5 gm in 50 mls @ 100 mls/hr IV Q6HR [facility]; Protocol Last Admin: 07/28/19 06:09 Dose: 100 mls/hr Documented by: Ondansetron HCl (Zofran) 4 mg IV Q8H PRN PRN Reason: Nausea And Vomiting Pantoprazole Sodium (Protonix) 40 mg IV BID [facility] Last Admin: 07/27/19 23:11 Dose: 40 mg Documented by: Sodium Chloride (Sodium Chloride Flush Syringe 10 Ml) 10 ml IV BID [facility] Last Admin: 07/27/19 23:11 Dose: 10 ml Documented by: Sodium Chloride (Sodium Chloride Flush Syringe 10 Ml) 10 ml IV PRN PRN PRN Reason: LINE FLUSH Review of Systems ROS unobtainable: due to mental status Exam Vital Signs Temp Pulse Resp BP Pulse Ox 98.0 F 99 H 20 150/54 99 07/26/19 21:08 07/26/19 21:08 07/26/19 21:08 07/26/19 21:08 07/26/19 21:08 - General physical appearance Positive: well developed, no distress - Respiratory Positive: normal expansion, normal respiratory effort - Abdomen Abdomen: Present: soft, other (NGT with gastric contents). Absent: tender, distended, guarding, rigid Results - Labs 07/28/19 04:08 07/27/19 04:05 Abnormal lab results 07/27/19 07/27/19 07/28/19 Range/Units 15:22 20:17 04:08 Hgb 9.2 L 9.6 L 8.5 L (11.8-15.2) gm/dl Hct 28.6 L 29.2 L 25.8 L (35.5-45.6) % POC Glucose (70-105) 07/28/19 07/28/19 Range/Units 07:44 11:40 Hgb (11.8-15.2) gm/dl Hct (35.5-45.6) % POC Glucose 125 H 146 H (70-105) Assessment and Plan 79 year old male with hx of PUD, with symptoms of gastric outlet obstruction. stable, afebrile with anemia. continue NGT Pending GI plans for EGD, will likely need surgery to bypass outlet obstruction. Will continue to follow and touch base with GI.
[2019-07-28] MEDS: PANTOPRAZOLE 40 MG INJ IV SCH ×2 (12:47→22:54)
--- NOTE | 2019-07-28 14:36 | Progress Note ---
Assessment and Plan 1. GOO - with significant NGT output. More alert after hydration. - cachectic and likely malnourished - may well need surgical management for GOO - would initiate TPN to improve nutritional status - will plan EGD with possible dilation on 07/30/19 - continue NGT suction and PPI Discussed with Dr. Foster Subjective Date of service: 07/28/19 Interval history: Pt nonverbal. More alert today. Marked NGT output. Objective - Constitutional Vitals: Vital Signs - 12hr 07/28/19 07/28/19 04:50 12:12 Temperature 97.7 F 97.3 F L Pulse Rate 92 H Respiratory 20 20 Rate Blood Pressure 129/51 141/54 O2 Sat by Pulse 100 Oximetry General appearance: Present: no acute distress - Gastrointestinal General gastrointestinal: Present: soft, non-tender - Additional findings Additional findings: Blind, with clouded eyes - Labs CBC & Chem 7: 07/28/19 04:08 07/27/19 04:05 Labs: Abnormal lab results 07/27/19 07/27/19 07/28/19 Range/Units 15:22 20:17 04:08 Hgb 9.2 L 9.6 L 8.5 L (11.8-15.2) gm/dl Hct 28.6 L 29.2 L 25.8 L (35.5-45.6) % POC Glucose (70-105) 07/28/19 07/28/19 Range/Units 07:44 11:40 Hgb (11.8-15.2) gm/dl Hct (35.5-45.6) % POC Glucose 125 H 146 H (70-105) Medications & Allergies - Medications Allergies/Adverse Reactions: Allergies No Known Allergies Allergy (Verified 03/04/14 14:44) Home Medications: Home Medications Medication Instructions Recorded Confirmed Last Taken Type Latanoprost 1 drop OU DAILY 03/04/14 07/27/19 03/05/14 History Pilocarpine 4% [Isopto Carpine] 1 drop OU DAILY 03/04/14 07/27/19 03/05/14 Hi story Metoprolol [Lopressor TAB] 25 mg PO BID #60 tablet 03/08/14 07/27/19 Unknown Rx Pantoprazole [Protonix TAB] 40 mg PO QDAY #30 tablet 02/22/19 07/27/19 Unknown Rx Polyethylene Glycol 3350 [Miralax 17 gm PO BID #30 packet 02/22/19 07/27/19 Unknown Rx 3350] bisacodyL [Dulcolax suppos] 10 mg [place] QDAY PRN #20 supp.rect 02/22/19 07/27/19 Unknown Rx Active Medications: Generic Name Dose Route Start Last Admin Trade Name Freq PRN Reason Stop Dose Admin Acetaminophen 650 mg 07/27/19 02:13 Tylenol [place] Q4H PRN Pain MILD(1-3)/Fever >100.5/[place] Bisacodyl 10 mg 07/27/19 16:51 Dulcolax HI QDAY PRN Constipation Hydralazine HCl 5 mg 07/27/19 02:31 Apresoline IV Q6H PRN Hypertension Dextrose/Sodium Chloride 1,000 mls @ 75 mls/hr 07/27/19 03:00 07/28/19 06:09 D5/0.45ns IV 75 mls/hr DIRECT EDOUARD Administration Ampicillin Sodium/Sulbactam Sodium 1.5 gm in 50 mls @ 100 mls/hr 07/27/19 18:00 07/28/19 12:47 Unasyn/Ns 1.5 Gm/50 Ml IV 100 mls/hr Q6HR EDOUARD Administration Protocol Ondansetron HCl 4 mg 07/27/19 02:13 Zofran IV Q8H PRN Nausea And Vomiting Pantoprazole Sodium 40 mg 07/27/19 10:00 07/28/19 12:47 Protonix IV 40 mg BID EDOUARD Administration Sodium Chloride 10 ml 07/27/19 10:00 07/28/19 12:47 Sodium Chloride Flush Syringe 10 Ml IV 10 ml BID EDOUARD Administration Sodium Chloride 10 ml 07/27/19 02:13 Sodium Chloride Flush Syringe 10 Ml IV PRN PRN LINE FLUSH
[2019-07-28] MEDS: HALOPERIDOL LACTATE 5 MG/1 ML INJ IM PRN (19:57)
[2019-07-29] MEDS: AMPICILLIN/SULBACTA 1.5GM/50ML 1.5 GM/50 ML BAG IV SCH ×4 (00:19→18:32)
[2019-07-29] MEDS ORDERED: LORazepam 2 MG/ML VIAL IV ONE (03:02)
[2019-07-29 08:31] LABS: BUN/Creatinine Ratio 13; Blood Urea Nitrogen 8 mg/dL (9-20); Hemolysis Index 3
[2019-07-29 08:32] LABS: Hematocrit 25.4 % (35.5-45.6); Hemoglobin 8.5 gm/dl (11.8-15.2); Mean Corpuscular HGB Conc 33 % (32-34); Mean Corpuscular Volume 78 fl (84-94); Platelet Count 289 K/mm3 (140-440); Red Blood Count 3.27 M/mm3 (3.65-5.03); Red Cell Distribution Width 18.2 % (13.2-15.2)
[2019-07-29] MEDS: PANTOPRAZOLE 40 MG INJ IV SCH ×2 (08:59→21:29)
[2019-07-29] MEDS: HALOPERIDOL LACTATE 5 MG/1 ML INJ IM PRN (11:45)
[2019-07-29] MEDS: D5NS W/KCL 20 MEQ 20 MEQ/1,000 ML BAG IV SCH (11:47)
--- NOTE | 2019-07-29 12:20 | Progress Note ---
Assessment and Plan Assessment and plan: Aspiration pneumonia RLL Started IV Zosyn, follow cultures Dysphasia/Anemia with heme positive stool Consulted GI, n.p.o., start IV fluids Check serial hemoglobin Continue Protonix patient seen by JOVANI I discussed with Dr. Gonzalez. Discussed with Surgeon Hypokalemia Potassium still low Replete potassium with D5NS + 20mEq Kcl Hypertension Start IV hydralazine as needed for blood pressure control Intellectual disability Glaucoma, stable Full code status History Interval history: Altered mental status Difficulty swallowing patient pulled out NG tube Hospitalist Physical - Physical exam Narrative exam: GEN: Not in acute distress, lying in bed, HEENT: Normocephalic, atraumatic, Neck: supple, No JVD Lungs: Clear to auscultation bilaterally, no wheeze, heart;S1 and S2 reg, no murmurs Abd:soft, non tender, non distended, normal bowel sounds Ext: No edema, no clubbing, no cyanosis Neuro: lethargic, intellectual disability, non verbal, blind - Constitutional Vitals: Temp Pulse Resp BP Pulse Ox 98.1 F 100 H 20 133/63 97 07/29/19 05:33 07/29/19 05:33 07/29/19 05:33 07/29/19 05:33 07/29/19 05:33 General appearance: Present: no acute distress Results - Labs CBC & Chem 7: 07/29/19 06:48 07/29/19 06:48 Labs: Laboratory Last Values WBC 7.1 K/mm3 (4.5-11.0) 07/29/19 06:48 RBC 3.27 M/mm3 (3.65-5.03) L 07/29/19 06:48 Hgb 8.5 gm/dl (11.8-15.2) L 07/29/19 06:48 Hct 25.4 % (35.5-45.6) L 07/29/19 06:48 MCV 78 fl (84-94) L 07/29/19 06:48 MCH 26 pg (28-32) L 07/29/19 06:48 MCHC 33 % (32-34) 07/29/19 06:48 RDW 18.2 % (13.2-15.2) H 07/29/19 06:48 Plt Count 289 K/mm3 (140-440) 07/29/19 06:48 Lymph % (Auto) 10.3 % (13.4-35.0) L 07/27/19 04:05 [place] % (Auto) 12.5 % (0.0-7.3) H 07/27/19 04:05 Eos % (Auto) 0.2 % (0.0-4.3) 07/27/19 04:05 Baso % (Auto) 0.1 % (0.0-1.8) 07/27/19 04:05 Lymph # 0.6 K/mm3 (1.2-5.4) L 07/27/19 04:05 [place] # 0.7 K/mm3 (0.0-0.8) 07/27/19 04:05 Eos # 0.0 K/mm3 (0.0-0.4) 07/27/19 04:05 Baso # 0.0 K/mm3 (0.0-0.1) 07/27/19 04:05 Seg Neutrophils % 76.9 % (40.0-70.0) H 07/27/19 04:05 Seg Neutrophils # 4.5 K/mm3 (1.8-7.7) 07/27/19 04:05 Sodium 137 mmol/L (137-145) 07/29/19 06:48 Potassium 3.1 mmol/L (3.6-5.0) L 07/29/19 06:48 Chloride 97.1 mmol/L (98-107) L 07/29/19 06:48 Carbon Dioxide 27 mmol/L (22-30) 07/29/19 06:48 Anion Gap 16 mmol/L 07/29/19 06:48 BUN 8 mg/dL (9-20) L 07/29/19 06:48 Creatinine 0.6 mg/dL (0.8-1.5) L 07/29/19 06:48 Estimated GFR > 60 ml/min 07/29/19 06:48 BUN/Creatinine Ratio 13 % 07/29/19 06:48 Glucose 113 mg/dL (75-100) H 07/29/19 06:48 POC Glucose 146 (70-105) H 07/28/19 11:40 Calcium 8.0 mg/dL (8.4-10.2) L 07/29/19 06:48 Total Bilirubin 0.50 mg/dL (0.1-1.2) 07/26/19 22:40 AST 16 units/L (5-40) 07/26/19 22:40 ALT 10 units/L (7-56) 07/26/19 22:40 Alkaline Phosphatase 49 units/L (35-129) 07/26/19 22:40 Total Protein 5.8 g/dL (6.3-8.2) L 07/26/19 22:40 Albumin 2.9 g/dL (3.9-5) L 07/26/19 22:40 Albumin/Globulin Ratio 1.0 % 07/26/19 22:40 Lipase 22 units/L (13-60) 07/26/19 22:40 Urine Color Yellow (Yellow) 07/27/19 09:06 Urine Turbidity Slightly-cloudy (Clear) 07/27/19 09:06 Urine pH 5.0 (5.0-7.0) 07/27/19 09:06 Ur Specific [place] 1.021 (1.003-1.030) 07/27/19 09:06 Urine Protein <15 mg/dl mg/dL (Negative) 07/27/19 09:06 Urine Glucose (UA) Neg mg/dL (Negative) 07/27/19 09:06 Urine Ketones Neg mg/dL (Negative) 07/27/19 09:06 Urine Blood Sm (Negative) 07/27/19 09:06 Urine Nitrite Neg (Negative) 07/27/19 09:06 Urine Bilirubin Neg (Negative) 07/27/19 09:06 Urine Urobilinogen < 2.0 mg/dL (<2.0) 07/27/19 09:06 Ur Leukocyte Esterase Sm (Negative) 07/27/19 09:06 Urine WBC (Auto) 26.0 /HPF (0.0-6.0) H 07/27/19 09:06 Urine RBC (Auto) 32.0 /HPF (0.0-6.0) 07/27/19 09:06 U Epithel Cells (Auto) 6.0 /HPF (0-13.0) 07/27/19 09:06 Hyaline Casts 1 /LPF 07/27/19 09:06 Urine Yeast (Budding) 2+ /HPF 07/27/19 09:06 Active Medications - Current Medications Current Medications: Generic Name Dose Route Start Last Admin Trade Name Freq PRN Reason Stop Dose Admin Acetaminophen 650 mg 07/27/19 02:13 Tylenol ID Q4H PRN Pain MILD(1-3)/Fever >100.5/H[place]INSON Bisacodyl 10 mg 07/27/19 16:51 Dulcolax ID QDAY PRN Constipation Haloperidol Lactate 5 mg 07/28/19 18:47 07/29/19 11:45 Haldol IM 5 mg Q6H PRN Administration Agitation Hydralazine HCl 5 mg 07/27/19 02:31 Apresoline IV Q6H PRN Hypertension Ampicillin Sodium/Sulbactam Sodium 1.5 gm in 50 mls @ 100 mls/hr 07/27/19 18:00 07/29/19 11:46 Unasyn/Ns 1.5 Gm/50 Ml IV 100 mls/hr Q6HR EDOUARD Administration Protocol Potassium Chloride/Dextrose/Sod Cl 20 meq in 1,000 mls @ 75 mls/hr 07/29/19 10:00 07/29/19 11:47 D5w/Ns W/Kcl 20meq IV 75 mls/hr DIRECT EDOUARD Administration Ondansetron HCl 4 mg 07/27/19 02:13 Zofran IV Q8H PRN Nausea And Vomiting Pantoprazole Sodium 40 mg 07/27/19 10:00 07/29/19 08:59 Protonix IV 40 mg BID EDOUARD Administration Sodium Chloride 10 ml 07/27/19 10:00 07/29/19 09:00 Sodium Chloride Flush Syringe 10 Ml IV 10 ml BID EDOUARD Administration Sodium Chloride 10 ml 07/27/19 02:13 Sodium Chloride Flush Syringe 10 Ml IV PRN PRN LINE FLUSH
--- NOTE | 2019-07-29 12:43 | Gastroenterology Progress Note ---
Assessment and Plan - cachectic and likely malnourished - may well need surgical management for GOO Once potassium normalized and patient stabilized can proceed with EGD with possible dilation - Patient Problems (1) Nausea & vomiting Current Visit: No Status: Acute Qualifiers: Vomiting type: unspecified Vomiting Intractability: non-intractable Qualified Code(s): R11.2 - Nausea with vomiting, unspecified (2) Weight loss Current Visit: No Status: Acute Subjective Date of service: 07/29/19 Principal diagnosis: N/V Interval history: Patient does not respond to my verbal commands NGT in place Objective - Constitutional Vitals: Temp Pulse Resp BP Pulse Ox 98.1 F 100 H 20 133/63 97 07/29/19 05:33 07/29/19 05:33 07/29/19 05:33 07/29/19 05:33 07/29/19 05:33 General appearance: no acute distress - EENT Eyes: other - Respiratory Respiratory effort: normal - Gastrointestinal General gastrointestinal: Present: soft - Labs CBC & Chem 7: 07/29/19 06:48 07/29/19 06:48 Labs: Laboratory Results - last 24 hr 07/29/19 07/29/19 06:48 06:48 WBC 7.1 RBC 3.27 L Hgb 8.5 L Hct 25.4 L MCV 78 L MCH 26 L MCHC 33 RDW 18.2 H Plt Count 289 Sodium 137 Potassium 3.1 L Chloride 97.1 L Carbon Dioxide 27 Anion Gap 16 BUN 8 L Creatinine 0.6 L Estimated GFR > 60 BUN/Creatinine Ratio 13 Glucose 113 H Calcium 8.0 L
--- NOTE | 2019-07-29 13:19 | Progress Note ---
Assessment and Plan PUD with clinical gastric outlet obstruction. afebrile, stable Spoke with Dr. Oviedo, will continue to follow and see what the results of the EGD show to determine if and what surgical intervention will be needed. Spoke to Dr. Foster, he said he will work with case management about determining power of real estate attorney for signing consent for general anesthesia surgical procedure if indicated. Subjective Date of service: 07/29/19 Narrative: no acute events. NGT had to be replaced. Objective Vital Signs - 12hr 07/29/19 05:33 Temperature 98.1 F Pulse Rate 100 H Respiratory 20 Rate Blood Pressure 133/63 O2 Sat by Pulse 97 Oximetry - General physical appearance no distress, other (cachectic) - Respiratory normal expansion, normal respiratory effort - Abdomen soft, not tender, other (scaphoid) - Labs 07/29/19 06:48 07/29/19 06:48 Diabetes panel 07/29/19 Range/Units 06:48 Sodium 137 (137-145) mmol/L Potassium 3.1 L (3.6-5.0) mmol/L Chloride 97.1 L (98-107) mmol/L Carbon Dioxide 27 (22-30) mmol/L BUN 8 L (9-20) mg/dL Creatinine 0.6 L (0.8-1.5) mg/dL Glucose 113 H (75-100) mg/dL Calcium 8.0 L (8.4-10.2) mg/dL Calcium panel 07/29/19 Range/Units 06:48 Calcium 8.0 L (8.4-10.2) mg/dL Pituitary panel 07/29/19 Range/Units 06:48 Sodium 137 (137-145) mmol/L Potassium 3.1 L (3.6-5.0) mmol/L Chloride 97.1 L (98-107) mmol/L Carbon Dioxide 27 (22-30) mmol/L BUN 8 L (9-20) mg/dL Creatinine 0.6 L (0.8-1.5) mg/dL Glucose 113 H (75-100) mg/dL Calcium 8.0 L (8.4-10.2) mg/dL Adrenal panel 07/29/19 Range/Units 06:48 Sodium 137 (137-145) mmol/L Potassium 3.1 L (3.6-5.0) mmol/L Chloride 97.1 L (98-107) mmol/L Carbon Dioxide 27 (22-30) mmol/L BUN 8 L (9-20) mg/dL Creatinine 0.6 L (0.8-1.5) mg/dL Glucose 113 H (75-100) mg/dL Calcium 8.0 L (8.4-10.2) mg/dL
[2019-07-29] MEDS: POTASSIUM CHLORIDE 10 MEQ 10 MEQ/100 ML BAG IV SCH ×3 (14:35→18:32)
[2019-07-30] MEDS: AMPICILLIN/SULBACTA 1.5GM/50ML 1.5 GM/50 ML BAG IV SCH ×4 (00:33→18:40)
[2019-07-30] MEDS: D5NS W/KCL 20 MEQ 20 MEQ/1,000 ML BAG IV SCH ×2 (03:16→18:48)
[2019-07-30 08:06] LABS: Hematocrit 24.6 % (35.5-45.6); Hemoglobin 8.1 gm/dl (11.8-15.2); Mean Corpuscular HGB Conc 33 % (32-34); Mean Corpuscular Volume 78 fl (84-94); Platelet Count 278 K/mm3 (140-440); Red Blood Count 3.15 M/mm3 (3.65-5.03); Red Cell Distribution Width 18.2 % (13.2-15.2)
--- NOTE | 2019-07-30 08:10 | Gastroenterology Progress Note ---
Assessment and Plan - cachectic and likely malnourished, please consider starting PPN - may well need surgical management for GOO. However, patient is obtunded and unable to provide consent for this non emergent procedure, therefore cannot proceed. - Please check electrolytes daily - Patient Problems (1) Nausea & vomiting Current Visit: No Status: Acute Qualifiers: Vomiting type: unspecified Vomiting Intractability: non-intractable Qualified Code(s): R11.2 - Nausea with vomiting, unspecified (2) Weight loss Current Visit: No Status: Acute Subjective Date of service: 07/30/19 Principal diagnosis: N/V Interval history: Patient does not respond to my verbal commands again today NGT in place Objective - Constitutional Vitals: Temp Pulse Resp BP Pulse Ox 98.3 F 87 20 109/46 98 07/30/19 04:38 07/30/19 04:38 07/30/19 04:38 07/30/19 04:38 07/30/19 04:38 General appearance: cachectic - Respiratory Respiratory effort: normal - Gastrointestinal General gastrointestinal: Present: soft - Labs CBC & Chem 7: 07/29/19 06:48 07/29/19 06:48 Labs: Laboratory Results - last 24 hr 07/29/19 07/29/19 06:48 06:48 WBC 7.1 RBC 3.27 L Hgb 8.5 L Hct 25.4 L MCV 78 L MCH 26 L MCHC 33 RDW 18.2 H Plt Count 289 Sodium 137 Potassium 3.1 L Chloride 97.1 L Carbon Dioxide 27 Anion Gap 16 BUN 8 L Creatinine 0.6 L Estimated GFR > 60 BUN/Creatinine Ratio 13 Glucose 113 H Calcium 8.0 L
[2019-07-30 08:21] LABS: BUN/Creatinine Ratio 10; Blood Urea Nitrogen 6 mg/dL (9-20); Calcium 7.8 mg/dL (8.4-10.2); Hemolysis Index 4
[2019-07-30] MEDS: PANTOPRAZOLE 40 MG INJ IV SCH ×2 (09:17→21:58)
--- NOTE | 2019-07-30 10:07 | Progress Note ---
Assessment and Plan Assessment and plan: Aspiration pneumonia RLL Started IV Zosyn, follow cultures Dysphasia/Anemia with heme positive stool Consulted GI, n.p.o., start IV fluids Check serial hemoglobin Continue Protonix patient seen by JOVANI, I discussed with Dr. Gonzalez. Discussed with Surgeon, Dr. Rios Consult case management to determine decision maker Hypokalemia Potassium still low Replete potassium with D5NS + 20mEq Kcl Repeat BMP in am Hypertension Start IV hydralazine as needed for blood pressure control Intellectual disability Glaucoma Full code status History Interval history: Altered mental status Difficulty swallowing patient pulled out NG tube,replaced Hospitalist Physical - Physical exam Narrative exam: GEN: Not in acute distress, lying in bed, HEENT: Normocephalic, atraumatic, NG tube in Neck: supple, No JVD Lungs: Clear to auscultation bilaterally, no wheeze, heart;S1 and S2 reg, no murmurs Abd:soft, non tender, non distended, normal bowel sounds Ext: No edema, no clubbing, no cyanosis Neuro: lethargic, intellectual disability, non verbal, blind - Constitutional Vitals: Temp Pulse Resp BP Pulse Ox 98.3 F 87 20 109/46 98 07/30/19 04:38 07/30/19 04:38 07/30/19 04:38 07/30/19 04:38 07/30/19 04:38 General appearance: Present: no acute distress Results - Labs CBC & Chem 7: 07/30/19 07:35 07/30/19 07:35 Labs: Laboratory Last Values WBC 5.5 K/mm3 (4.5-11.0) 07/30/19 07:35 RBC 3.15 M/mm3 (3.65-5.03) L 07/30/19 07:35 Hgb 8.1 gm/dl (11.8-15.2) L 07/30/19 07:35 Hct 24.6 % (35.5-45.6) L 07/30/19 07:35 MCV 78 fl (84-94) L 07/30/19 07:35 MCH 26 pg (28-32) L 07/30/19 07:35 MCHC 33 % (32-34) 07/30/19 07:35 RDW 18.2 % (13.2-15.2) H 07/30/19 07:35 Plt Count 278 K/mm3 (140-440) 07/30/19 07:35 Lymph % (Auto) 10.3 % (13.4-35.0) L 07/27/19 04:05 [place] % (Auto) 12.5 % (0.0-7.3) H 07/27/19 04:05 Eos % (Auto) 0.2 % (0.0-4.3) 07/27/19 04:05 Baso % (Auto) 0.1 % (0.0-1.8) 07/27/19 04:05 Lymph # 0.6 K/mm3 (1.2-5.4) L 07/27/19 04:05 [place] # 0.7 K/mm3 (0.0-0.8) 07/27/19 04:05 Eos # 0.0 K/mm3 (0.0-0.4) 07/27/19 04:05 Baso # 0.0 K/mm3 (0.0-0.1) 07/27/19 04:05 Seg Neutrophils % 76.9 % (40.0-70.0) H 07/27/19 04:05 Seg Neutrophils # 4.5 K/mm3 (1.8-7.7) 07/27/19 04:05 Sodium 140 mmol/L (137-145) 07/30/19 07:35 Potassium 3.3 mmol/L (3.6-5.0) L 07/30/19 07:35 Chloride 102.5 mmol/L (98-107) 07/30/19 07:35 Carbon Dioxide 28 mmol/L (22-30) 07/30/19 07:35 Anion Gap 13 mmol/L 07/30/19 07:35 BUN 6 mg/dL (9-20) L 07/30/19 07:35 Creatinine 0.6 mg/dL (0.8-1.5) L 07/30/19 07:35 Estimated GFR > 60 ml/min 07/30/19 07:35 BUN/Creatinine Ratio 10 % 07/30/19 07:35 Glucose 116 mg/dL (75-100) H 07/30/19 07:35 POC Glucose 146 (70-105) H 07/28/19 11:40 Calcium 7.8 mg/dL (8.4-10.2) L 07/30/19 07:35 Total Bilirubin 0.50 mg/dL (0.1-1.2) 07/26/19 22:40 AST 16 units/L (5-40) 07/26/19 22:40 ALT 10 units/L (7-56) 07/26/19 22:40 Alkaline Phosphatase 49 units/L (35-129) 07/26/19 22:40 Total Protein 5.8 g/dL (6.3-8.2) L 07/26/19 22:40 Albumin 2.9 g/dL (3.9-5) L 07/26/19 22:40 Albumin/Globulin Ratio 1.0 % 07/26/19 22:40 Lipase 22 units/L (13-60) 07/26/19 22:40 Procalcitonin 0.44 ng/mL (<0.15) 07/28/19 04:08 Urine Color Yellow (Yellow) 07/27/19 09:06 Urine Turbidity Slightly-cloudy (Clear) 07/27/19 09:06 Urine pH 5.0 (5.0-7.0) 07/27/19 09:06 Ur Specific [place] 1.021 (1.003-1.030) 07/27/19 09:06 Urine Protein <15 mg/dl mg/dL (Negative) 07/27/19 09:06 Urine Glucose (UA) Neg mg/dL (Negative) 07/27/19 09:06 Urine Ketones Neg mg/dL (Negative) 07/27/19 09:06 Urine Blood Sm (Negative) 07/27/19 09:06 Urine Nitrite Neg (Negative) 07/27/19 09:06 Urine Bilirubin Neg (Negative) 07/27/19 09:06 Urine Urobilinogen < 2.0 mg/dL (<2.0) 07/27/19 09:06 Ur Leukocyte Esterase Sm (Negative) 07/27/19 09:06 Urine WBC (Auto) 26.0 /HPF (0.0-6.0) H 07/27/19 09:06 Urine RBC (Auto) 32.0 /HPF (0.0-6.0) 07/27/19 09:06 U Epithel Cells (Auto) 6.0 /HPF (0-13.0) 07/27/19 09:06 Hyaline Casts 1 /LPF 07/27/19 09:06 Urine Yeast (Budding) 2+ /HPF 07/27/19 09:06 Active Medications - Current Medications Current Medications: Generic Name Dose Route Start Last Admin Trade Name Freq PRN Reason Stop Dose Admin Acetaminophen 650 mg 07/27/19 02:13 Tylenol [place] Q4H PRN Pain MILD(1-3)/Fever >100.5/H[place]INSON Bisacodyl 10 mg 07/27/19 16:51 Dulcolax [place] QDAY PRN Constipation Haloperidol Lactate 5 mg 07/28/19 18:47 07/29/19 11:45 Haldol IM 5 mg Q6H PRN Administration Agitation Hydralazine HCl 5 mg 07/27/19 02:31 Apresoline IV Q6H PRN Hypertension Ampicillin Sodium/Sulbactam Sodium 1.5 gm in 50 mls @ 100 mls/hr 07/27/19 18:00 07/30/19 05:57 Unasyn/Ns 1.5 Gm/50 Ml IV 100 mls/hr Q6HR EDOUARD Administration Protocol Potassium Chloride/Dextrose/Sod Cl 20 meq in 1,000 mls @ 75 mls/hr 07/29/19 10:00 07/30/19 03:16 D5w/Ns W/Kcl 20meq IV 75 mls/hr DIRECT EDOUARD Administration Ondansetron HCl 4 mg 07/27/19 02:13 Zofran IV Q8H PRN Nausea And Vomiting Pantoprazole Sodium 40 mg 07/27/19 10:00 07/30/19 09:17 Protonix IV 40 mg BID EDOUARD Administration Sodium Chloride 10 ml 07/27/19 10:00 07/30/19 09:17 Sodium Chloride Flush Syringe 10 Ml IV 10 ml BID EDOUARD Administration Sodium Chloride 10 ml 07/27/19 02:13 Sodium Chloride Flush Syringe 10 Ml IV PRN PRN LINE FLUSH
--- NOTE | 2019-07-30 12:19 | Event Note ---
Date: 07/30/19 Saw patient today. No change is status. Have discussed case with Dr. Oviedo and Dr. Foster. Agree that pt needs power of deck engine operator to be responsible signing consent forms for future procedures. Will need to replace NGT, and consider PPN. Will continue to follow.
[2019-07-30] MEDS: HALOPERIDOL LACTATE 5 MG/1 ML INJ IM PRN (14:20)
--- NOTE | 2019-07-30 14:49 | Progress Note ---
Assessment and Plan Cultures: 07/27/2019 urine culture - C albicans A&P - 79 yo M with developmental delay, HTN admitted with altered mental status and concern for aspiration pneumonia. #Aspiration PNA - change noted by ski binding fitter and repairer. Would de-escalate to Unasyn for now. Might be difficult to obtain sputum cultures based on patient co- operativity. Afebrile with a normal white count. Assumign stability would expect to discharge on Augmentin for a fairly short course. #GIB - for repeat EGD with GI. #Candiduria - not necessary to treat. Recommendations: - Unasyn 1.5g q6h - complete 8 days of therapy. If discharged prior to completing 10 days, please discharged with Augmentin 875/125mg every 12 hours. Stop date 08/06/2019 Thank you for the consult, will sign off. please call with questions. Leigha Armenta MD [facility] ([facility]) M: [phone] O: [phone] F: [phone] Subjective Date of service: 07/30/19 Principal diagnosis: N/V Interval history: Afebrile, normal white count. No change in mental status. Objective - Exam Narrative Exam: Constitutional: Alert, cooperative. No acute distress Head, Ears, Nose: Normocephalic, atraumatic. External ears, nose normal Eyes: Conjunctivae/corneas clear. No icterus. No ptosis. Neck: Supple, no meningeal signs Oral: dentition fair, no thrush Cardiovascular: S1, S2 normal. Respiratory: Good air entry, clear to auscultation bilaterally GI: Soft, non-tender; bowel sounds normal. No peritoneal signs. Musculoskeletal: No pedal edema, no cyanosis. Skin: No rash or abscess Hem/Lymphatic: No palpable cervical or supraclavicular nodes. No lymphangitis Psych: Mood ok. Affect normal Neurological: Awake, alert, non-verbal No gross abnormality - Constitutional Vitals: Vital Signs Temp Pulse Resp BP Pulse Ox 98.3 F 87 20 109/46 98 07/30/19 04:38 07/30/19 04:38 07/30/19 04:38 07/30/19 04:38 07/30/19 04:38 Temperature -Last 24 Hours Temperature 98.3 F Temperature 98.0 F Temperature 97.5 F - Labs CBC & Chem 7: 07/30/19 07:35 07/30/19 07:35 Labs: Abnormal lab results 07/30/19 07/30/19 Range/Units 07:35 07:35 RBC 3.15 L (3.65-5.03) M/mm3 Hgb 8.1 L (11.8-15.2) gm/dl Hct 24.6 L (35.5-45.6) % MCV 78 L (84-94) fl MCH 26 L (28-32) pg RDW 18.2 H (13.2-15.2) % Potassium 3.3 L (3.6-5.0) mmol/L BUN 6 L (9-20) mg/dL Creatinine 0.6 L (0.8-1.5) mg/dL Glucose 116 H (75-100) mg/dL Calcium 7.8 L (8.4-10.2) mg/dL
[2019-07-30 15:23] LABS: Albumin 1.8 g/dL (3.9-5); Prealbumin 0.043 g/L (0.200-0.400)
[2019-07-31] MEDS: AMPICILLIN/SULBACTA 1.5GM/50ML 1.5 GM/50 ML BAG IV SCH ×5 (06:19→23:34)
[2019-07-31 07:21] LABS: Hematocrit 23.9 % (35.5-45.6); Hemoglobin 7.8 gm/dl (11.8-15.2); Mean Corpuscular HGB Conc 33 % (32-34); Mean Corpuscular Volume 77 fl (84-94); Platelet Count 299 K/mm3 (140-440); Red Blood Count 3.09 M/mm3 (3.65-5.03); Red Cell Distribution Width 17.6 % (13.2-15.2)
[2019-07-31 07:38] LABS: BUN/Creatinine Ratio 7; Blood Urea Nitrogen 4 mg/dL (9-20); Calcium 7.8 mg/dL (8.4-10.2); Hemolysis Index 9
[2019-07-31] MEDS: PANTOPRAZOLE 40 MG INJ IV SCH ×2 (12:58→22:33)
[2019-07-31] MEDS: D5NS W/KCL 20 MEQ 20 MEQ/1,000 ML BAG IV SCH ×2 (13:11→23:34)
--- NOTE | 2019-07-31 13:20 | Gastroenterology Progress Note ---
<EZRA PATEL - Last Filed: 07/31/19 13:24> Assessment and Plan 1.GI bleed (coffee-ground emesis) 2.acute on chronic anemia 3.N/V 4.weight loss -afebrile -WBC WNL; plt WNL -LFTs WNL -H/H 8.5/26.2-trending down (drop from prior labs 02/2019) -continue to monitor H/H and transfuse as needed -no active signs of bleeding -abd CT 02/15/19-showed a moderate amount of fecal material in the distal colon/rectum, possible fecal impaction, and dilated stomach containing fluid/food material with thickening and edema of the gastric antrum/pylorus (focal gastritis vs PUD?) -EGD on 02/18/2019 showing two large ulcers at the pylorus and edema causing partial gastric outlet obstruction. There was bile flowing back and small opening but scope could not be advanced beyond the pylorus. -f/u Upper GI series 02/20/19 w/o signs of GOO (likely partial GOO and not a complete obstruction) -etiology-likely 2/2 known PUD as above -repeat EGD pending conscent -will likely need surgical management for GOO-surgery following -Keep NPO; consider PPN -continue PPI -continue supportive care -electrolyte management per primary team Subjective Date of service: 07/31/19 Principal diagnosis: N/V Interval history: No acute distress or change. NGT pulled out. Objective - Constitutional Vitals: Temp Pulse Resp BP Pulse Ox 98.2 F 105 H 18 118/49 83 L 07/31/19 06:28 07/31/19 06:28 07/31/19 06:28 07/31/19 06:28 07/31/19 06:28 General appearance: no acute distress, cachectic, other (nonverbal) - Respiratory Respiratory effort: normal Respiratory: bilateral: diminished - Cardiovascular Rhythm: other (tachycardia) - Gastrointestinal General gastrointestinal: Present: soft, non-distended, normal bowel sounds - Labs CBC & Chem 7: 07/31/19 05:33 07/31/19 05:33 Labs: Laboratory Results - last 24 hr 07/30/19 07/31/19 07/31/19 07:35 05:33 05:33 WBC 4.5 RBC 3.09 L Hgb 7.8 L Hct 23.9 L MCV 77 L MCH 25 L MCHC 33 RDW 17.6 H Plt Count 299 Sodium 142 Potassium 3.7 Chloride 104.3 Carbon Dioxide 27 Anion Gap 14 BUN 4 L Creatinine 0.6 L Estimated GFR > 60 BUN/Creatinine Ratio 7 Glucose 136 H Calcium 7.8 L Albumin 1.8 L Prealbumin 0.043 L <ALONDRA TIMMONS - Last Filed: 07/31/19 18:40> Assessment and Plan I have reviewed the advanced practitioner's evaluation, assessment, and plan, and agree with the assessment and plan. I note the following notes/additions: patient currently not responding to verbal commands or communicating, so I cannot perform non emergent EGD. Please resolve the mental status issue, once patient alert please call GI back so we can proceed with the EGD - Patient Problems (1) Nausea & vomiting Current Visit: No Status: Acute Qualifiers: Vomiting type: unspecified Vomiting Intractability: non-intractable Qualified Code(s): R11.2 - Nausea with vomiting, unspecified (2) Weight loss Current Visit: No Status: Acute Objective - Constitutional Vitals: Temp Pulse Resp BP Pulse Ox 98.4 F 96 H 18 126/45 100 07/31/19 12:43 07/31/19 12:43 07/31/19 12:43 07/31/19 12:43 07/31/19 12:43 - Labs CBC & Chem 7: 07/31/19 05:33 07/31/19 05:33 Labs: Laboratory Results - last 24 hr 07/31/19 07/31/19 05:33 05:33 WBC 4.5 RBC 3.09 L Hgb 7.8 L Hct 23.9 L MCV 77 L MCH 25 L MCHC 33 RDW 17.6 H Plt Count 299 Sodium 142 Potassium 3.7 Chloride 104.3 Carbon Dioxide 27 Anion Gap 14 BUN 4 L Creatinine 0.6 L Estimated GFR > 60 BUN/Creatinine Ratio 7 Glucose 136 H Calcium 7.8 L
--- NOTE | 2019-07-31 15:55 | Progress Note ---
Assessment and Plan 1.Aspiration PNA - change noted by scabbler. Would de-escalate to Unasyn for now. Might be difficult to obtain sputum cultures based on patient co- operativity. Afebrile with a normal white count. Assuming stability would expect to discharge on Augmentin for a fairly short course. #GIB - for repeat EGD with GI. #Candiduria - not necessary to treat. Recommendations: - Unasyn 1.5g q6h - complete 8 days of therapy. If discharged prior to completing 10 days, please discharged with Augmentin 875/125mg every 12 hours. Stop date 08/06/2019 Subjective Date of service: 07/31/19 Principal diagnosis: N/V Interval history: 79 year old man with mental retardation, hypertension and glaucoma, gastric ulcers, blind was brought to to the emergency room by the caregiver he was not his usual self. After he came home from the day program, she was feeding the patient and it appeared to her that he had difficulty swallowing. The patient is non-verbal, lives in a [facility], history is per [facility] personnel. In the emergency room his chest x-ray shows pneumonia, started on cefepime. His hemoglobin was noted to be 9.9, decrease from 12 when he was last seen here in February 2019. Rectal was done which was heme positive A review of systems is unobtainable Objective - Constitutional Vitals: Vital Signs - 12hr 07/31/19 07/31/19 06:28 12:43 Temperature 98.2 F 98.4 F Pulse Rate 105 H 96 H Respiratory 18 18 Rate Blood Pressure 118/49 126/45 O2 Sat by Pulse 83 L 100 Oximetry General appearance: Present: no acute distress, well-nourished - EENT Eyes: PERRL, EOM intact ENT: hearing intact, clear oral mucosa Ears: bilateral: normal - Neck Neck: supple, normal ROM - Respiratory Respiratory effort: normal Respiratory: bilateral: CTA - Breasts Breasts: normal - Cardiovascular Heart rate: 78 Rhythm: regular Heart Sounds: Present: S1 & S2. Absent: gallop, rub Extremities: no ischemia, pulses intact, No edema, normal color, Full ROM - Gastrointestinal General gastrointestinal: Present: soft, non-tender, non-distended, normal bowel sounds - Genitourinary Male genitourinary: normal - Integumentary Integumentary: clear, warm, dry - Musculoskeletal Musculoskeletal: 1, strength equal bilaterally - Neurologic Neurologic: moves all extremities - Psychiatric Psychiatric: memory intact, appropriate mood/affect, intact judgment & insight - Labs CBC & Chem 7: 07/31/19 05:33 07/31/19 05:33 Labs: Abnormal lab results 07/31/19 07/31/19 Range/Units 05:33 05:33 RBC 3.09 L (3.65-5.03) M/mm3 Hgb 7.8 L (11.8-15.2) gm/dl Hct 23.9 L (35.5-45.6) % MCV 77 L (84-94) fl MCH 25 L (28-32) pg RDW 17.6 H (13.2-15.2) % BUN 4 L (9-20) mg/dL Creatinine 0.6 L (0.8-1.5) mg/dL Glucose 136 H (75-100) mg/dL Calcium 7.8 L (8.4-10.2) mg/dL
[2019-08-01] MEDS: AMPICILLIN/SULBACTA 1.5GM/50ML 1.5 GM/50 ML BAG IV SCH ×2 (05:08→15:41)
[2019-08-01 08:01] LABS: Hematocrit 25.8 % (35.5-45.6); Hemoglobin 8.3 gm/dl (11.8-15.2); Mean Corpuscular HGB Conc 32 % (32-34); Mean Corpuscular Volume 77 fl (84-94); Platelet Count 337 K/mm3 (140-440); Red Blood Count 3.35 M/mm3 (3.65-5.03); Red Cell Distribution Width 17.7 % (13.2-15.2)
[2019-08-01 09:03] LABS: BUN/Creatinine Ratio 7; Blood Urea Nitrogen 5 mg/dL (9-20); Calcium 8.2 mg/dL (8.4-10.2); Hemolysis Index 2
--- NOTE | 2019-08-01 14:20 | Event Note ---
Date: 08/01/19 Case management is working with [facility] (Roldan Thompson [phone]) regarding consent for EGD (she is sending a letter of authorization for procedure to being filled out by 2 physicians then it will have to be sent to her tile and mottle supervisor for approval). GI will proceed with procedure once consent is obtained. Continue supportive care. Will follow at a distance.
[2019-08-01] MEDS: PANTOPRAZOLE 40 MG INJ IV SCH ×2 (15:44→23:49)
--- NOTE | 2019-08-01 16:03 | Progress Note ---
Assessment and Plan 1.Aspiration PNA - change noted by child welfare manager. Would de-escalate to Unasyn for now. Might be difficult to obtain sputum cultures based on patient co- operativity. Afebrile with a normal white count. Assuming stability would expect to discharge on Augmentin for a fairly short course. #GIB - for repeat EGD with GI. #Candiduria - not necessary to treat. Severe Malnutrition Dietitian consult Recommendations: - Unasyn 1.5g q6h - complete 8 days of therapy. If discharged prior to completing 10 days, please discharged with Augmentin 875/125mg every 12 hours. Stop date 08/06/2019 Subjective Date of service: 08/01/19 Principal diagnosis: N/V Interval history: 79 year old man with mental retardation, hypertension and glaucoma, gastric ulcers, blind was brought to to the emergency room by the caregiver he was not his usual self. After he came home from the day program, she was feeding the patient and it appeared to her that he had difficulty swallowing. The patient is non-verbal, lives in a correction, history is per correction personnel. In the emergency room his chest x-ray shows pneumonia, started on cefepime. His hemoglobin was noted to be 9.9, decrease from 12 when he was last seen here in February 2019. Rectal was done which was heme positive A review of systems is unobtainable Same condition Objective - Constitutional Vitals: Vital Signs - 12hr 08/01/19 08/01/19 08/01/19 06:11 10:00 11:34 Temperature 97.6 F 97.0 F L Pulse Rate 95 H 88 Respiratory 20 18 Rate Blood Pressure 127/51 135/64 O2 Sat by Pulse 93 94 92 Oximetry General appearance: Present: no acute distress, well-nourished - EENT Eyes: PERRL, EOM intact ENT: hearing intact, clear oral mucosa Ears: bilateral: normal - Neck Neck: supple, normal ROM - Respiratory Respiratory effort: normal Respiratory: bilateral: CTA - Breasts Breasts: normal - Cardiovascular Heart rate: 78 Rhythm: regular Heart Sounds: Present: S1 & S2. Absent: gallop, rub Extremities: no ischemia, pulses intact, No edema, normal color, Full ROM - Gastrointestinal General gastrointestinal: Present: soft, non-tender, non-distended, normal bowel sounds - Genitourinary Male genitourinary: normal - Integumentary Integumentary: clear, warm, dry - Musculoskeletal Musculoskeletal: strength equal bilaterally, generalized weakness - Neurologic Neurologic: moves all extremities - Psychiatric Psychiatric: other (lethargic) - Allied health notes Allied health notes reviewed: nursing, case management - Labs CBC & Chem 7: 08/01/19 07:28 08/01/19 07:28 Labs: Abnormal lab results 08/01/19 08/01/19 Range/Units 07:28 07:28 RBC 3.35 L (3.65-5.03) M/mm3 Hgb 8.3 L (11.8-15.2) gm/dl Hct 25.8 L (35.5-45.6) % MCV 77 L (84-94) fl MCH 25 L (28-32) pg RDW 17.7 H (13.2-15.2) % BUN 5 L (9-20) mg/dL Creatinine 0.7 L (0.8-1.5) mg/dL Glucose 115 H (75-100) mg/dL Calcium 8.2 L (8.4-10.2) mg/dL
[2019-08-02] MEDS: AMPICILLIN/SULBACTA 1.5GM/50ML 1.5 GM/50 ML BAG IV SCH ×5 (01:05→18:31)
[2019-08-02] MEDS: D5NS W/KCL 20 MEQ 20 MEQ/1,000 ML BAG IV SCH (02:44)
[2019-08-02 10:18] LABS: Basophils % (Auto) 0.6 % (0.0-1.8); Eosinophils # (Auto) 0.2 K/mm3 (0.0-0.4); Eosinophils % (Auto) 5.4 % (0.0-4.3); Hematocrit 24.9 % (35.5-45.6); Lymphocytes # (Auto) 0.3 K/mm3 (1.2-5.4); Lymphocytes % (Auto) 7.5 % (13.4-35.0); Mean Corpuscular HGB Conc 32 % (32-34); Mean Corpuscular Volume 78 fl (84-94); Monocytes # (Auto) 0.4 K/mm3 (0.0-0.8); Monocytes % (Auto) 9.6 % (0.0-7.3); Platelet Count 311 K/mm3 (140-440); Red Blood Count 3.21 M/mm3 (3.65-5.03); Red Cell Distribution Width 17.9 % (13.2-15.2)
[2019-08-02 10:44] LABS: BUN/Creatinine Ratio 16; Blood Urea Nitrogen 11 mg/dL (9-20); Calcium 7.6 mg/dL (8.4-10.2); Hemolysis Index 13
--- NOTE | 2019-08-02 11:03 | Gastroenterology Progress Note ---
<EZRA PATEL - Last Filed: 08/02/19 11:03> Assessment and Plan 1.GI bleed (coffee-ground emesis) 2.acute on chronic anemia 3.N/V 4.weight loss -afebrile -WBC WNL; plt WNL -LFTs WNL -H/H 8.0/24.9-stable -continue to monitor H/H and transfuse as needed -no active signs of bleeding -abd CT 02/15/19-showed a moderate amount of fecal material in the distal colon/rectum, possible fecal impaction, and dilated stomach containing fl uid/food material with thickening and edema of the gastric antrum/pylorus (focal gastritis vs PUD?) -EGD on 02/18/2019 showing two large ulcers at the pylorus and edema causing partial gastric outlet obstruction. There was bile flowing back and small opening but scope could not be advanced beyond the pylorus. -f/u Upper GI series 02/20/19 w/o signs of GOO (likely partial GOO and not a complete obstruction) -etiology-likely 2/2 known PUD as above -repeat EGD tentively scheduled for tomorrow pending consent (Case management is working with [facility] (Roldan Thompson [phone]) regarding consent for EGD with authorization letter pending approval from supervisor hot dip tinning) -will likely need surgical management for GOO-surgery following -Keep NPO; recommend PPN -continue PPI -continue supportive care -electrolyte management per primary team Subjective Date of service: 08/02/19 Principal diagnosis: N/V Interval history: No acute distress Objective - Constitutional Vitals: Temp Pulse Resp BP Pulse Ox 97.9 F 69 20 116/47 78 L 08/02/19 07:29 08/02/19 07:29 08/02/19 07:29 08/02/19 07:29 08/02/19 07:29 General appearance: no acute distress, other (lethargic) - Respiratory Respiratory effort: normal Respiratory: bilateral: diminished - Cardiovascular Rhythm: regular - Gastrointestinal General gastrointestinal: Present: soft, non-distended, normal bowel sounds - Neurologic Neurological: disoriented - Labs CBC & Chem 7: 08/02/19 10:07 08/02/19 10:07 Labs: Laboratory Results - last 24 hr 08/02/19 08/02/19 10:07 10:07 WBC 4.3 L RBC 3.21 L Hgb 8.0 L Hct 24.9 L MCV 78 L MCH 25 L MCHC 32 RDW 17.9 H Plt Count 311 Lymph % (Auto) 7.5 L [place] % (Auto) 9.6 H Eos % (Auto) 5.4 H Baso % (Auto) 0.6 Lymph # 0.3 L [place] # 0.4 Eos # 0.2 Baso # 0.0 Seg Neutrophils % 76.9 H Seg Neutrophils # 3.3 Sodium 141 Potassium 3.9 Chloride 106.6 Carbon Dioxide 21 L Anion Gap 17 BUN 11 Creatinine 0.7 L Estimated GFR > 60 BUN/Creatinine Ratio 16 Glucose 113 H Calcium 7.6 L <ALONDRA TIMMONS - Last Filed: 08/02/19 22:54> Assessment and Plan I have reviewed the advanced practitioner's evaluation, assessment, and plan, and agree with the assessment and plan. I note the following notes/additions: Pt seen, still not responding to commands consent in chart will proceed with EGD tomorrow - Patient Problems (1) Nausea & vomiting Current Visit: No Status: Acute Qualifiers: Vomiting type: unspecified Vomiting Intractability: non-intractable Qualified Code(s): R11.2 - Nausea with vomiting, unspecified (2) Weight loss Current Visit: No Status: Acute Objective - Constitutional Vitals: Temp Pulse Resp BP Pulse Ox 97.0 F L 89 20 143/41 100 08/02/19 17:50 08/02/19 17:50 08/02/19 17:50 08/02/19 17:50 08/02/19 17:50 - Labs CBC & Chem 7: 08/02/19 10:07 08/02/19 10:07 Labs: Laboratory Results - last 24 hr 08/02/19 08/02/19 10:07 10:07 WBC 4.3 L RBC 3.21 L Hgb 8.0 L Hct 24.9 L MCV 78 L MCH 25 L MCHC 32 RDW 17.9 H Plt Count 311 Lymph % (Auto) 7.5 L [place] % (Auto) 9.6 H Eos % (Auto) 5.4 H Baso % (Auto) 0.6 Lymph # 0.3 L [place] # 0.4 Eos # 0.2 Baso # 0.0 Seg Neutrophils % 76.9 H Seg Neutrophils # 3.3 Sodium 141 Potassium 3.9 Chloride 106.6 Carbon Dioxide 21 L Anion Gap 17 BUN 11 Creatinine 0.7 L Estimated GFR > 60 BUN/Creatinine Ratio 16 Glucose 113 H Calcium 7.6 L
[2019-08-02] MEDS: PANTOPRAZOLE 40 MG INJ IV SCH ×2 (11:16→21:01)
[2019-08-03] MEDS: D5NS W/KCL 20 MEQ 20 MEQ/1,000 ML BAG IV SCH ×2 (00:17→23:45)
[2019-08-03] MEDS: AMPICILLIN/SULBACTA 1.5GM/50ML 1.5 GM/50 ML BAG IV SCH ×6 (00:18→23:46)
[2019-08-03] MEDS: PANTOPRAZOLE 40 MG INJ IV SCH ×2 (09:17→21:56)
--- NOTE | 2019-08-03 10:58 | Progress Note ---
Assessment and Plan Assessment and plan: Aspiration pneumonia. Continue IV antibiotics per infectious disease. GI bleed/coffee-ground emesis. Etiology likely secondary to gastritis versus PUD. Repeat EGD potentially to be completed today. GI following. Acute on chronic anemia. Transfuse for hemoglobin less than 7. Candiduria. No treatment necessary per ID. History Interval history: No new issues overnight. Hospitalist Physical - Constitutional Vitals: Temp Pulse Resp BP Pulse Ox 97.4 F L 85 18 129/57 96 08/03/19 03:00 08/03/19 03:00 08/03/19 03:00 08/03/19 03:00 08/03/19 03:00 General appearance: Present: no acute distress, well-nourished - EENT Eyes: Present: PERRL, EOM intact ENT: hearing intact, clear oral mucosa, dentition normal - Neck Neck: Present: supple, normal ROM - Respiratory Respiratory effort: normal Respiratory: bilateral: CTA - Cardiovascular Rhythm: regular Heart Sounds: Present: S1 & S2. Absent: gallop, rub - Extremities Extremities: no ischemia, No edema, Full ROM - Abdominal General gastrointestinal: soft, non-tender, non-distended, normal bowel sounds - Integumentary Integumentary: Present: clear, warm, dry - Neurologic Neurologic: CNII-XII intact, moves all extremities Results - Labs CBC & Chem 7: 08/02/19 10:07 08/02/19 10:07 Labs: Laboratory Last Values WBC 4.3 K/mm3 (4.5-11.0) L 08/02/19 10:07 RBC 3.21 M/mm3 (3.65-5.03) L 08/02/19 10:07 Hgb 8.0 gm/dl (11.8-15.2) L 08/02/19 10:07 Hct 24.9 % (35.5-45.6) L 08/02/19 10:07 MCV 78 fl (84-94) L 08/02/19 10:07 MCH 25 pg (28-32) L 08/02/19 10:07 MCHC 32 % (32-34) 08/02/19 10:07 RDW 17.9 % (13.2-15.2) H 08/02/19 10:07 Plt Count 311 K/mm3 (140-440) 08/02/19 10:07 Lymph % (Auto) 7.5 % (13.4-35.0) L 08/02/19 10:07 [place] % (Auto) 9.6 % (0.0-7.3) H 08/02/19 10:07 Eos % (Auto) 5.4 % (0.0-4.3) H 08/02/19 10:07 Baso % (Auto) 0.6 % (0.0-1.8) 08/02/19 10:07 Lymph # 0.3 K/mm3 (1.2-5.4) L 08/02/19 10:07 [place] # 0.4 K/mm3 (0.0-0.8) 08/02/19 10:07 Eos # 0.2 K/mm3 (0.0-0.4) 08/02/19 10:07 Baso # 0.0 K/mm3 (0.0-0.1) 08/02/19 10:07 Seg Neutrophils % 76.9 % (40.0-70.0) H 08/02/19 10:07 Seg Neutrophils # 3.3 K/mm3 (1.8-7.7) 08/02/19 10:07 Sodium 141 mmol/L (137-145) 08/02/19 10:07 Potassium 3.9 mmol/L (3.6-5.0) 08/02/19 10:07 Chloride 106.6 mmol/L (98-107) 08/02/19 10:07 Carbon Dioxide 21 mmol/L (22-30) L 08/02/19 10:07 Anion Gap 17 mmol/L 08/02/19 10:07 BUN 11 mg/dL (9-20) 08/02/19 10:07 Creatinine 0.7 mg/dL (0.8-1.5) L 08/02/19 10:07 Estimated GFR > 60 ml/min 08/02/19 10:07 BUN/Creatinine Ratio 16 % 08/02/19 10:07 Glucose 113 mg/dL (75-100) H 08/02/19 10:07 POC Glucose 146 (70-105) H 07/28/19 11:40 Calcium 7.6 mg/dL (8.4-10.2) L 08/02/19 10:07 Magnesium 1.70 mg/dL (1.7-2.3) 07/30/19 07:35 Total Bilirubin 0.50 mg/dL (0.1-1.2) 07/26/19 22:40 AST 16 units/L (5-40) 07/26/19 22:40 ALT 10 units/L (7-56) 07/26/19 22:40 Alkaline Phosphatase 49 units/L (35-129) 07/26/19 22:40 Total Protein 5.8 g/dL (6.3-8.2) L 07/26/19 22:40 Albumin 1.8 g/dL (3.9-5) L 07/30/19 07:35 Albumin/Globulin Ratio 1.0 % 07/26/19 22:40 Prealbumin 0.043 g/L (0.200-0.400) L 07/30/19 07:35 Lipase 22 units/L (13-60) 07/26/19 22:40 Procalcitonin 0.44 ng/mL (<0.15) 07/28/19 04:08 Urine Color Yellow (Yellow) 07/27/19 09:06 Urine Turbidity Slightly-cloudy (Clear) 07/27/19 09:06 Urine pH 5.0 (5.0-7.0) 07/27/19 09:06 Ur Specific [place] 1.021 (1.003-1.030) 07/27/19 09:06 Urine Protein <15 mg/dl mg/dL (Negative) 07/27/19 09:06 Urine Glucose (UA) Neg mg/dL (Negative) 07/27/19 09:06 Urine Ketones Neg mg/dL (Negative) 07/27/19 09:06 Urine Blood Sm (Negative) 07/27/19 09:06 Urine Nitrite Neg (Negative) 07/27/19 09:06 Urine Bilirubin Neg (Negative) 07/27/19 09:06 Urine Urobilinogen < 2.0 mg/dL (<2.0) 07/27/19 09:06 Ur Leukocyte Esterase Sm (Negative) 07/27/19 09:06 Urine WBC (Auto) 26.0 /HPF (0.0-6.0) H 07/27/19 09:06 Urine RBC (Auto) 32.0 /HPF (0.0-6.0) 07/27/19 09:06 U Epithel Cells (Auto) 6.0 /HPF (0-13.0) 07/27/19 09:06 Hyaline Casts 1 /LPF 07/27/19 09:06 Urine Yeast (Budding) 2+ /HPF 07/27/19 09:06 Active Medications - Current Medications Current Medications: Generic Name Dose Route Start Last Admin Trade Name Freq PRN Reason Stop Dose Admin Acetaminophen 650 mg 07/27/19 02:13 Tylenol [place] Q4H PRN Pain MILD(1-3)/Fever >100.5/[place] Bisacodyl 10 mg 07/27/19 16:51 Dulcolax [place] QDAY PRN Constipation Haloperidol Lactate 5 mg 07/28/19 18:47 07/30/19 14:20 Haldol IM 5 mg Q6H PRN Administration Agitation Hydralazine HCl 5 mg 07/27/19 02:31 Apresoline IV Q6H PRN Hypertension Ampicillin Sodium/Sulbactam Sodium 1.5 gm in 50 mls @ 100 mls/hr 07/27/19 18:00 08/03/19 05:00 Unasyn/Ns 1.5 Gm/50 Ml IV 08/06/19 12:29 100 mls/hr Q6HR EDOUARD Administration Protocol Potassium Chloride/Dextrose/Sod Cl 20 meq in 1,000 mls @ 75 mls/hr 07/29/19 10:00 08/03/19 00:17 D5w/Ns W/Kcl 20meq IV 75 mls/hr DIRECT EDOUARD Administration Ondansetron HCl 4 mg 07/27/19 02:13 Zofran IV Q8H PRN Nausea And Vomiting Pantoprazole Sodium 40 mg 07/27/19 10:00 08/03/19 09:17 Protonix IV 40 mg BID EDOUARD Administration Sodium Chloride 10 ml 07/27/19 10:00 08/03/19 09:17 Sodium Chloride Flush Syringe 10 Ml IV 10 ml BID EDOUARD Administration Sodium Chloride 10 ml 07/27/19 02:13 Sodium Chloride Flush Syringe 10 Ml IV PRN PRN LINE FLUSH Nutrition/Malnutrition Assess - Dietary Evaluation Nutrition/Malnutrition Findings: Nutrition Notes Start: 07/31/19 10:27 Freq: Status: Active Protocol: Document 08/02/19 14:36 ROWENA (Rec: 08/02/19 14:44 ROWENA [id number]) Co-Sign 08/02/19 14:36 LP Nutrition Notes Initial or Follow up Reassessment Current Diagnosis Hypertension Other Pertinent Diagnosis Pneu, AMS, gastric ulcers Current Diet NPO Labs/Tests Reviewed Pertinent Medications Reviewed Height 5 ft 5 in Weight 49.5 kg [place] Body Weight (kg) 61.81 BMI 18.1 Weight change and time frame Wt change noted Subjective/Other Information F/U for further assessment and diet advancement. Pt still NPO for EGD. Pt unable to answer assessment questions. Per gastroenterology pt may need PPN. Waiting for consult for PPN. Percent of energy/protein needs met: 0%/0% Burn Absent Trauma Absent Current % PO Negligible Minimum of two criteria No Muscle Mass Mild Depletion (non-severe) #1 Nutrition Diagnosis Inadequate oral intake Diagnosis Progress(for reassessment Continues documentation) Is patient on ventilator? No Is Patient Ambulatory and/or Out of Bed Yes REE-([place] Jeor-ambulatory/OOB) [ 1490.944 NUTR.MSJOOB] Calculation Used for Recommendations [place] or Additional Notes Protein: 50-59g (1-1.2g/kg) Fluid: 1 ml/kcal Nutrition Intervention Change Diet Order: Advance diet when medically feasible Goal #1 PPN consult Anticipated Discharge Needs: Unable to determine Follow-Up By: 08/06/19 Additional Comments F/U for PPN consult
[2019-08-03] MEDS ORDERED: SODIUM CHLORIDE 0.9% 1000 ML 1,000 ML IV SCH (12:45)
[2019-08-03] MEDS ORDERED: LIDOCAINE MPF (2%) 20 MG/1 ML VIAL 5 ML ONE (13:30)
--- NOTE | 2019-08-03 15:35 | Anesthesia Consultation ---
Anesthesia Consult and Med Hx Date of service: 08/03/19 - Airway Anesthetic Teeth Evaluation: Poor ROM Head & Neck: Inadequate Mental/Hyoid Distance: Inadequate Mallampati Class: Class IV Intubation Access Assessment: Possibly Difficult - Pre-Operative Health Status ASA Pre-Surgery Classification: ASA3 Proposed Anesthetic Plan: MAC - Pulmonary Hx Pneumonia: Yes (On this admission patient has PNA on chest xray; treated with antibotics) - Cardiovascular System Hx Hypertension: Yes - Central Nervous System Hx Psychiatric Problems: Yes (mental retardation, non verbal) - Gastrointestinal Hx Gastroesophageal Reflux Disease: Yes (nausea/vomiting, dysphagia, diarrhea) - Endocrine Hx Renal Disease: Yes (Hx of kidney stones) Hx Liver Disease: Yes (Hx of gallbladder stones) - Hematic Hx Anemia: Yes (H&H of 8&24)
--- NOTE | 2019-08-03 15:36 | Anesthesia Day of Surgery ---
Anesthesia Day of Surgery - Day of Surgery Patient Examined: Yes Patient H&P Reviewed: Yes Patient is NPO: Yes Beta Blockers: Yes
[2019-08-03] MEDS ORDERED: PROPOFOL 200 MG/20 ML VIAL IV ONE ×2 (16:12)
--- NOTE | 2019-08-03 16:30 | Operative Report ---
Operative Report Operative Report: DOS: 08/03/19 SURGEON: Sammy Oviedo MD EGD with biopsy REPORT PREOPERATIVE DIAGNOSIS and POSTOPERATIVE DIAGNOSIS: gastric outlet obstruction ESTIMATED BLOOD LOSS: minimal DESCRIPTION OF PROCEDURE: A high-resolution EGD scope was passed through the oropharynx, esophagus, stomach, and second portion of duodenum. The scope was carefully withdrawn. Retroflexion was performed in the stomach. At the end of the procedure, the scope was cleaned using normal technique. Vital signs monito red continuously throughout. SEDATION: Provided by Anesthesiology Services. COMPLICATIONS: None. FINDINGS: * No gross lesions in the duodenum * Circumferential ulcerated area of nodular tissue surrounding the pylorus and in the pyloric channel causing partial gastric outlet obstruction. This was able to be passed with effort. Appearance concerning for possible malignancy. 10 biopsies taken from multiple areas rule out dysplasia. Due to concern for malignancy, dilation not performed. * Moderate atrophic appearing gastritis of the remainder of the stomach * 1 cm hiatal hernia * GE junction at approximately 40 cm from the incisors * Severe LA grade D esophagitis from 25 cm to 40 cm from the incisors, cannot rule out underlying [id number] Matthew's esophagus. Multiple biopsies obtained from multiple levels of the esophagus RECOMMENDATIONS: * Follow-up biopsy results * Full liquid diet if tolerated * Continue IV twice a day pantoprazole * If the biopsies return as malignancy, please involve oncology and callback Dr. Rios for possible surgical intervention * If biopsies are benign, we can consider attempting EGD with balloon dilation
[2019-08-04] MEDS: AMPICILLIN/SULBACTA 1.5GM/50ML 1.5 GM/50 ML BAG IV SCH ×2 (05:39→11:06)
[2019-08-04] MEDS: PANTOPRAZOLE 40 MG INJ IV SCH ×2 (10:58→22:45)
--- NOTE | 2019-08-04 12:10 | Progress Note ---
Assessment and Plan Assessment and plan: Aspiration pneumonia. Continue IV antibiotics per infectious disease. GI bleed/coffee-ground emesis. EGD revealed no gross lesions in the duodenum but ulcerated area of nodular tissue surrounding the pylorus and in the pyloric channel causing partial gastric outlet obstruction. Appearance was concerning for malignancy. Await biopsy. Esophagitis/gastritis. Continue PPI IV twice daily. Acute on chronic anemia. Transfuse for hemoglobin less than 7. Candiduria. No treatment necessary per ID. Intellectual disability. Continue supportive care. History Interval history: No new issues overnight. Hospitalist Physical - Constitutional Vitals: Temp Pulse Resp BP Pulse Ox 97.8 F 85 20 132/56 85 08/04/19 05:29 08/04/19 05:29 08/04/19 05:29 08/04/19 05:29 08/04/19 05:29 General appearance: Present: no acute distress, well-nourished - EENT Eyes: Present: PERRL, EOM intact ENT: hearing intact, clear oral mucosa, dentition normal - Neck Neck: Present: supple, normal ROM - Respiratory Respiratory effort: normal Respiratory: bilateral: CTA - Cardiovascular Rhythm: regular Heart Sounds: Present: S1 & S2. Absent: gallop, rub - Extremities Extremities: no ischemia, No edema, Full ROM - Abdominal General gastrointestinal: soft, non-tender, non-distended, normal bowel sounds - Integumentary Integumentary: Present: clear, warm, dry - Neurologic Neurologic: CNII-XII intact, moves all extremities Results - Labs CBC & Chem 7: 08/02/19 10:07 08/02/19 10:07 Labs: Laboratory Last Values WBC 4.3 K/mm3 (4.5-11.0) L 08/02/19 10:07 RBC 3.21 M/mm3 (3.65-5.03) L 08/02/19 10:07 Hgb 8.0 gm/dl (11.8-15.2) L 08/02/19 10:07 Hct 24.9 % (35.5-45.6) L 08/02/19 10:07 MCV 78 fl (84-94) L 08/02/19 10:07 MCH 25 pg (28-32) L 08/02/19 10:07 MCHC 32 % (32-34) 08/02/19 10:07 RDW 17.9 % (13.2-15.2) H 08/02/19 10:07 Plt Count 311 K/mm3 (140-440) 08/02/19 10:07 Lymph % (Auto) 7.5 % (13.4-35.0) L 08/02/19 10:07 [place] % (Auto) 9.6 % (0.0-7.3) H 08/02/19 10:07 Eos % (Auto) 5.4 % (0.0-4.3) H 08/02/19 10:07 Baso % (Auto) 0.6 % (0.0-1.8) 08/02/19 10:07 Lymph # 0.3 K/mm3 (1.2-5.4) L 08/02/19 10:07 [place] # 0.4 K/mm3 (0.0-0.8) 08/02/19 10:07 Eos # 0.2 K/mm3 (0.0-0.4) 08/02/19 10:07 Baso # 0.0 K/mm3 (0.0-0.1) 08/02/19 10:07 Seg Neutrophils % 76.9 % (40.0-70.0) H 08/02/19 10:07 Seg Neutrophils # 3.3 K/mm3 (1.8-7.7) 08/02/19 10:07 Sodium 141 mmol/L (137-145) 08/02/19 10:07 Potassium 3.9 mmol/L (3.6-5.0) 08/02/19 10:07 Chloride 106.6 mmol/L (98-107) 08/02/19 10:07 Carbon Dioxide 21 mmol/L (22-30) L 08/02/19 10:07 Anion Gap 17 mmol/L 08/02/19 10:07 BUN 11 mg/dL (9-20) 08/02/19 10:07 Creatinine 0.7 mg/dL (0.8-1.5) L 08/02/19 10:07 Estimated GFR > 60 ml/min 08/02/19 10:07 BUN/Creatinine Ratio 16 % 08/02/19 10:07 Glucose 113 mg/dL (75-100) H 08/02/19 10:07 POC Glucose 146 (70-105) H 07/28/19 11:40 Calcium 7.6 mg/dL (8.4-10.2) L 08/02/19 10:07 Magnesium 1.70 mg/dL (1.7-2.3) 07/30/19 07:35 Total Bilirubin 0.50 mg/dL (0.1-1.2) 07/26/19 22:40 AST 16 units/L (5-40) 07/26/19 22:40 ALT 10 units/L (7-56) 07/26/19 22:40 Alkaline Phosphatase 49 units/L (35-129) 07/26/19 22:40 Total Protein 5.8 g/dL (6.3-8.2) L 07/26/19 22:40 Albumin 1.8 g/dL (3.9-5) L 07/30/19 07:35 Albumin/Globulin Ratio 1.0 % 07/26/19 22:40 Prealbumin 0.043 g/L (0.200-0.400) L 07/30/19 07:35 Lipase 22 units/L (13-60) 07/26/19 22:40 Procalcitonin 0.44 ng/mL (<0.15) 07/28/19 04:08 Urine Color Yellow (Yellow) 07/27/19 09:06 Urine Turbidity Slightly-cloudy (Clear) 07/27/19 09:06 Urine pH 5.0 (5.0-7.0) 07/27/19 09:06 Ur Specific [place] 1.021 (1.003-1.030) 07/27/19 09:06 Urine Protein <15 mg/dl mg/dL (Negative) 07/27/19 09:06 Urine Glucose (UA) Neg mg/dL (Negative) 07/27/19 09:06 Urine Ketones Neg mg/dL (Negative) 07/27/19 09:06 Urine Blood Sm (Negative) 07/27/19 09:06 Urine Nitrite Neg (Negative) 07/27/19 09:06 Urine Bilirubin Neg (Negative) 07/27/19 09:06 Urine Urobilinogen < 2.0 mg/dL (<2.0) 07/27/19 09:06 Ur Leukocyte Esterase Sm (Negative) 07/27/19 09:06 Urine WBC (Auto) 26.0 /HPF (0.0-6.0) H 07/27/19 09:06 Urine RBC (Auto) 32.0 /HPF (0.0-6.0) 07/27/19 09:06 U Epithel Cells (Auto) 6.0 /HPF (0-13.0) 07/27/19 09:06 Hyaline Casts 1 /LPF 07/27/19 09:06 Urine Yeast (Budding) 2+ /HPF 07/27/19 09:06 Active Medications - Current Medications Current Medications: Generic Name Dose Route Start Last Admin Trade Name Freq PRN Reason Stop Dose Admin Acetaminophen 650 mg 07/27/19 02:13 Tylenol [place] Q4H PRN Pain MILD(1-3)/Fever >100.5/[place] Bisacodyl 10 mg 07/27/19 16:51 Dulcolax [place] QDAY PRN Constipation Haloperidol Lactate 5 mg 07/28/19 18:47 07/30/19 14:20 Haldol IM 5 mg Q6H PRN Administration Agitation Hydralazine HCl 5 mg 07/27/19 02:31 Apresoline IV Q6H PRN Hypertension Ampicillin Sodium/Sulbactam Sodium 1.5 gm in 50 mls @ 100 mls/hr 07/27/19 18:00 08/04/19 11:06 Unasyn/Ns 1.5 Gm/50 Ml IV 08/06/19 12:29 100 mls/hr Q6HR EDOUARD Administration Protocol Potassium Chloride/Dextrose/Sod Cl 20 meq in 1,000 mls @ 75 mls/hr 07/29/19 10:00 08/03/19 23:45 D5w/Ns W/Kcl 20meq IV 75 mls/hr DIRECT EDOUARD Administration Sodium Chloride 1,000 mls @ 50 mls/hr 08/03/19 12:45 08/03/19 15:03 Nacl 0.9% 1000 Ml IV 08/04/19 12:44 50 mls/hr DIRECT EDOUARD Administration Ondansetron HCl 4 mg 07/27/19 02:13 Zofran IV Q8H PRN Nausea And Vomiting Pantoprazole Sodium 40 mg 07/27/19 10:00 08/04/19 10:58 Protonix IV 40 mg BID EDOUARD Administration Sodium Chloride 10 ml 07/27/19 10:00 08/04/19 11:00 Sodium Chloride Flush Syringe 10 Ml IV 10 ml BID EDOUARD Administration Sodium Chloride 10 ml 07/27/19 02:13 Sodium Chloride Flush Syringe 10 Ml IV PRN PRN LINE FLUSH Nutrition/Malnutrition Assess - Dietary Evaluation Nutrition/Malnutrition Findings: Nutrition Notes Start: 07/31/19 10:27 Freq: Status: Active Protocol: Document 08/02/19 14:36 ROWENA (Rec: 08/02/19 14:44 ROWENA [id number]) Co-Sign 08/02/19 14:36 LP Nutrition Notes Initial or Follow up Reassessment Current Diagnosis Hypertension Other Pertinent Diagnosis Pneu, AMS, gastric ulcers Current Diet NPO Labs/Tests Reviewed Pertinent Medications Reviewed Height 5 ft 5 in Weight 49.5 kg [place] Body Weight (kg) 61.81 BMI 18.1 Weight change and time frame Wt change noted Subjective/Other Information F/U for further assessment and diet advancement. Pt still NPO for EGD. Pt unable to answer assessment questions. Per gastroenterology pt may need PPN. Waiting for consult for PPN. Percent of energy/protein needs met: 0%/0% Burn Absent Trauma Absent Current % PO Negligible Minimum of two criteria No Muscle Mass Mild Depletion (non-severe) #1 Nutrition Diagnosis Inadequate oral intake Diagnosis Progress(for reassessment Continues documentation) Is patient on ventilator? No Is Patient Ambulatory and/or Out of Bed Yes REE-([facility]-ambulatory/OOB) [ 1490.944 NUTR.MSJOOB] Calculation Used for Recommendations [facility] Additional Notes Protein: 50-59g (1-1.2g/kg) Fluid: 1 ml/kcal Nutrition Intervention Change Diet Order: Advance diet when medically feasible Goal #1 PPN consult Anticipated Discharge Needs: Unable to determine Follow-Up By: 08/06/19 Additional Comments F/U for PPN consult
--- NOTE | 2019-08-04 15:17 | Gastroenterology Progress Note ---
Assessment and Plan # Partial GOO - s/p EGD on 08/03/2019. FINDINGS: * No gross lesions in the duodenum * Circumferential ulcerated area of nodular tissue surrounding the pylorus and in the pyloric channel causing partial gastric outlet obstruction. This was able to be passed with effort. Appearance concerning for possible malignancy. 10 biopsies taken from multiple areas rule out dysplasia. Due to concern for malignancy, dilation not performed. * Moderate atrophic appearing gastritis of the remainder of the stomach * 1 cm hiatal hernia * GE junction at approximately 40 cm from the incisors * Severe LA grade D esophagitis from 25 cm to 40 cm from the incisors, cannot rule out underlying [id number] Matthew's esophagus. Multiple biopsies obtained from multiple levels of the esophagus - pending speech eval Rec - trial of full liquid diet after speech eval. - continue with PPI IV bid. - if biopsies came back as malignancy, recommend oncology and surgery reconsult with Dr. Rios. - if not tolerating full liquids, will consider attempting EGD with balloon dilation of pylorus if path is benign. Subjective Date of service: 08/04/19 Principal diagnosis: N/V Interval history: No acute events o/n. s/p EGD. nonverbal. Objective - Constitutional Vitals: Temp Pulse Resp BP Pulse Ox 98.6 F 61 20 114/53 100 08/04/19 12:10 08/04/19 12:10 08/04/19 12:10 08/04/19 12:10 08/04/19 12:10 General appearance: no acute distress - EENT Eyes: EOM intact - Neck Neck: supple - Respiratory Respiratory effort: normal - Cardiovascular Rhythm: regular Heart Sounds: Present: S1 & S2 - Gastrointestinal General gastrointestinal: Present: soft, non-tender, non-distended, normal bowel sounds - Integumentary Integumentary: Present: clear, warm - Labs CBC & Chem 7: 08/02/19 10:07 08/02/19 10:07
[2019-08-04] MEDS: D5NS W/KCL 20 MEQ 20 MEQ/1,000 ML BAG IV SCH (16:00)
--- NOTE | 2019-08-04 21:49 | Progress Note ---
Assessment and Plan 1.Aspiration PNA - change noted by devulcanizer charger. Would de-escalate to Unasyn for now. Might be difficult to obtain sputum cultures based on patient co- operativity. Afebrile with a normal white count. Assuming stability would expect to discharge on Augmentin for a fairly short course. #GIB - for repeat EGD with GI. #Candiduria - not necessary to treat. Severe Malnutrition Dietitian consult Recommendations: - Unasyn 1.5g q6h - complete 8 days of therapy. If discharged prior to completing 10 days, please discharged with Augmentin 875/125mg every 12 hours. Stop date 08/06/2019 Subjective Date of service: 08/02/19 Principal diagnosis: N/V Interval history: 79 year old man with mental retardation, hypertension and glaucoma, gastric ulcers, blind was brought to to the emergency room by the caregiver he was not his usual self. After he came home from the day program, she was feeding the patient and it appeared to her that he had difficulty swallowing. The patient is non-verbal, lives in a [facility], history is per [facility] personnel. In the emergency room his chest x-ray shows pneumonia, started on cefepime. His hemoglobin was noted to be 9.9, decrease from 12 when he was last seen here in February 2019. Rectal was done which was heme positive A review of systems is unobtainable Same condition Objective - Constitutional Vitals: Vital Signs - 12hr 08/04/19 08/04/19 08/04/19 10:00 12:10 17:30 Temperature 98.6 F 98.5 F Pulse Rate 61 92 H Respiratory 20 18 Rate Blood Pressure 114/53 132/54 O2 Sat by Pulse 96 100 100 Oximetry General appearance: Present: no acute distress, well-nourished - EENT Eyes: PERRL, EOM intact ENT: hearing intact, clear oral mucosa Ears: bilateral: normal - Neck Neck: supple, normal ROM - Respiratory Respiratory effort: normal Respiratory: bilateral: CTA - Breasts Breasts: normal - Cardiovascular Heart rate: 78 Rhythm: regular Heart Sounds: Present: S1 & S2. Absent: gallop, rub Extremities: pulses intact, No edema, normal color, Full ROM - Gastrointestinal General gastrointestinal: Present: soft, non-tender, non-distended, normal bowel sounds - Genitourinary Male genitourinary: normal - Integumentary Integumentary: clear, warm, dry - Musculoskeletal Musculoskeletal: 1, strength equal bilaterally - Neurologic Neurologic: moves all extremities - Psychiatric Psychiatric: memory intact, appropriate mood/affect, intact judgment & insight - Labs CBC & Chem 7: 08/02/19 10:07 08/02/19 10:07
[2019-08-05] MEDS: AMPICILLIN/SULBACTA 1.5GM/50ML 1.5 GM/50 ML BAG IV SCH ×6 (00:43→23:01)
[2019-08-05] MEDS: HALOPERIDOL LACTATE 5 MG/1 ML INJ IM PRN ×3 (05:11→21:48)
[2019-08-05 07:21] LABS: Basophils % (Auto) 0.5 % (0.0-1.8); Eosinophils # (Auto) 0.1 K/mm3 (0.0-0.4); Eosinophils % (Auto) 1.9 % (0.0-4.3); Hematocrit 24.7 % (35.5-45.6); Hemoglobin 7.9 gm/dl (11.8-15.2); Lymphocytes # (Auto) 0.2 K/mm3 (1.2-5.4); Lymphocytes % (Auto) 5.5 % (13.4-35.0); Mean Corpuscular HGB Conc 32 % (32-34); Mean Corpuscular Volume 76 fl (84-94); Monocytes # (Auto) 0.3 K/mm3 (0.0-0.8); Platelet Count 341 K/mm3 (140-440); Red Blood Count 3.25 M/mm3 (3.65-5.03); Red Cell Distribution Width 17.9 % (13.2-15.2)
[2019-08-05 07:39] LABS: BUN/Creatinine Ratio 17; Blood Urea Nitrogen 10 mg/dL (9-20); Hemolysis Index 10
--- NOTE | 2019-08-05 11:20 | Progress Note ---
Assessment and Plan Assessment and plan: Aspiration pneumonia. Continue IV antibiotics per infectious disease. GI bleed/coffee-ground emesis. EGD revealed no gross lesions in the duodenum but ulcerated area of nodular tissue surrounding the pylorus and in the pyloric channel causing partial gastric outlet obstruction. Appearance was concerning for malignancy. Await biopsy. Melena. As above. Nurse reported black stools last night. GI following Esophagitis/gastritis. Continue PPI IV twice daily. Acute on chronic anemia. Transfuse for hemoglobin less than 7. Candiduria. No treatment necessary per ID. Intellectual disability. Continue supportive care. History Interval history: No new issues overnight. Nurse reports patient with black stools. Hospitalist Physical - Constitutional Vitals: Temp Pulse Resp BP Pulse Ox 98.3 F 80 20 143/53 83 L 08/05/19 05:10 08/05/19 05:10 08/05/19 05:10 08/05/19 05:10 08/05/19 05:10 General appearance: Present: no acute distress, well-nourished - EENT Eyes: Present: PERRL, EOM intact ENT: hearing intact, clear oral mucosa, dentition normal - Neck Neck: Present: supple, normal ROM - Respiratory Respiratory effort: normal Respiratory: bilateral: CTA - Cardiovascular Rhythm: regular Heart Sounds: Present: S1 & S2. Absent: gallop, rub - Extremities Extremities: no ischemia, No edema, Full ROM - Abdominal General gastrointestinal: soft, non-tender, non-distended, normal bowel sounds - Integumentary Integumentary: Present: clear, warm, dry - Neurologic Neurologic: CNII-XII intact, moves all extremities Results - Labs CBC & Chem 7: 08/05/19 06:50 08/05/19 06:50 Labs: Laboratory Last Values WBC 4.0 K/mm3 (4.5-11.0) L 08/05/19 06:50 RBC 3.25 M/mm3 (3.65-5.03) L 08/05/19 06:50 Hgb 7.9 gm/dl (11.8-15.2) L 08/05/19 06:50 Hct 24.7 % (35.5-45.6) L 08/05/19 06:50 MCV 76 fl (84-94) L 08/05/19 06:50 MCH 24 pg (28-32) L 08/05/19 06:50 MCHC 32 % (32-34) 08/05/19 06:50 RDW 17.9 % (13.2-15.2) H 08/05/19 06:50 Plt Count 341 K/mm3 (140-440) 08/05/19 06:50 Lymph % (Auto) 5.5 % (13.4-35.0) L 08/05/19 06:50 [place] % (Auto) 8.0 % (0.0-7.3) H 08/05/19 06:50 Eos % (Auto) 1.9 % (0.0-4.3) 08/05/19 06:50 Baso % (Auto) 0.5 % (0.0-1.8) 08/05/19 06:50 Lymph # 0.2 K/mm3 (1.2-5.4) L 08/05/19 06:50 [place] # 0.3 K/mm3 (0.0-0.8) 08/05/19 06:50 Eos # 0.1 K/mm3 (0.0-0.4) 08/05/19 06:50 Baso # 0.0 K/mm3 (0.0-0.1) 08/05/19 06:50 Seg Neutrophils % 84.1 % (40.0-70.0) H 08/05/19 06:50 Seg Neutrophils # 3.4 K/mm3 (1.8-7.7) 08/05/19 06:50 Sodium 141 mmol/L (137-145) 08/05/19 06:50 Potassium 3.3 mmol/L (3.6-5.0) L 08/05/19 06:50 Chloride 105.4 mmol/L (98-107) 08/05/19 06:50 Carbon Dioxide 21 mmol/L (22-30) L 08/05/19 06:50 Anion Gap 18 mmol/L 08/05/19 06:50 BUN 10 mg/dL (9-20) 08/05/19 06:50 Creatinine 0.6 mg/dL (0.8-1.5) L 08/05/19 06:50 Estimated GFR > 60 ml/min 08/05/19 06:50 BUN/Creatinine Ratio 17 % 08/05/19 06:50 Glucose 98 mg/dL (75-100) 08/05/19 06:50 POC Glucose 146 (70-105) H 07/28/19 11:40 Calcium 8.0 mg/dL (8.4-10.2) L 08/05/19 06:50 Magnesium 1.70 mg/dL (1.7-2.3) 07/30/19 07:35 Total Bilirubin 0.50 mg/dL (0.1-1.2) 07/26/19 22:40 AST 16 units/L (5-40) 07/26/19 22:40 ALT 10 units/L (7-56) 07/26/19 22:40 Alkaline Phosphatase 49 units/L (35-129) 07/26/19 22:40 Total Protein 5.8 g/dL (6.3-8.2) L 07/26/19 22:40 Albumin 1.8 g/dL (3.9-5) L 07/30/19 07:35 Albumin/Globulin Ratio 1.0 % 07/26/19 22:40 Prealbumin 0.043 g/L (0.200-0.400) L 07/30/19 07:35 Lipase 22 units/L (13-60) 07/26/19 22:40 Procalcitonin 0.44 ng/mL (<0.15) 07/28/19 04:08 Urine Color Yellow (Yellow) 07/27/19 09:06 Urine Turbidity Slightly-cloudy (Clear) 07/27/19 09:06 Urine pH 5.0 (5.0-7.0) 07/27/19 09:06 Ur Specific [place] 1.021 (1.003-1.030) 07/27/19 09:06 Urine Protein <15 mg/dl mg/dL (Negative) 07/27/19 09:06 Urine Glucose (UA) Neg mg/dL (Negative) 07/27/19 09:06 Urine Ketones Neg mg/dL (Negative) 07/27/19 09:06 Urine Blood Sm (Negative) 07/27/19 09:06 Urine Nitrite Neg (Negative) 07/27/19 09:06 Urine Bilirubin Neg (Negative) 07/27/19 09:06 Urine Urobilinogen < 2.0 mg/dL (<2.0) 07/27/19 09:06 Ur Leukocyte Esterase Sm (Negative) 07/27/19 09:06 Urine WBC (Auto) 26.0 /HPF (0.0-6.0) H 07/27/19 09:06 Urine RBC (Auto) 32.0 /HPF (0.0-6.0) 07/27/19 09:06 U Epithel Cells (Auto) 6.0 /HPF (0-13.0) 07/27/19 09:06 Hyaline Casts 1 /LPF 07/27/19 09:06 Urine Yeast (Budding) 2+ /HPF 07/27/19 09:06 Active Medications - Current Medications Current Medications: Generic Name Dose Route Start Last Admin Trade Name Freq PRN Reason Stop Dose Admin Acetaminophen 650 mg 07/27/19 02:13 Tylenol [place] Q4H PRN Pain MILD(1-3)/Fever >100.5/[place] Bisacodyl 10 mg 07/27/19 16:51 Dulcolax [place] QDAY PRN Constipation Haloperidol Lactate 5 mg 07/28/19 18:47 08/05/19 11:02 Haldol IM 5 mg Q6H PRN Administration Agitation Hydralazine HCl 5 mg 07/27/19 02:31 Apresoline IV Q6H PRN Hypertension Ampicillin Sodium/Sulbactam Sodium 1.5 gm in 50 mls @ 100 mls/hr 07/27/19 18:00 08/05/19 06:28 Unasyn/Ns 1.5 Gm/50 Ml IV 08/06/19 12:29 Infused Q6HR EDOUARD Infusion Protocol Potassium Chloride/Dextrose/Sod Cl 20 meq in 1,000 mls @ 75 mls/hr 07/29/19 10:00 08/04/19 16:00 D5w/Ns W/Kcl 20meq IV 75 mls/hr DIRECT EDOUARD Administration Ondansetron HCl 4 mg 07/27/19 02:13 Zofran IV Q8H PRN Nausea And Vomiting Pantoprazole Sodium 40 mg 07/27/19 10:00 08/04/19 22:45 Protonix IV 40 mg BID EDOUARD Administration Sodium Chloride 10 ml 07/27/19 10:00 08/04/19 22:40 Sodium Chloride Flush Syringe 10 Ml IV 10 ml BID EDOUARD Administration Sodium Chloride 10 ml 07/27/19 02:13 Sodium Chloride Flush Syringe 10 Ml IV PRN PRN LINE FLUSH Nutrition/Malnutrition Assess - Dietary Evaluation Nutrition/Malnutrition Findings: Nutrition Notes Start: 07/31/19 10:27 Freq: Status: Active Protocol: Document 08/02/19 14:36 ROWENA (Rec: 08/02/19 14:44 ROWENA [id number]) Co-Sign 08/02/19 14:36 LP Nutrition Notes Initial or Follow up Reassessment Current Diagnosis Hypertension Other Pertinent Diagnosis Pneu, AMS, gastric ulcers Current Diet NPO Labs/Tests Reviewed Pertinent Medications Reviewed Height 5 ft 5 in Weight 49.5 kg [place] Body Weight (kg) 61.81 BMI 18.1 Weight change and time frame Wt change noted Subjective/Other Information F/U for further assessment and diet advancement. Pt still NPO for EGD. Pt unable to answer assessment questions. Per gastroenterology pt may need PPN. Waiting for consult for PPN. Percent of energy/protein needs met: 0%/0% Burn Absent Trauma Absent Current % PO Negligible Minimum of two criteria No Muscle Mass Mild Depletion (non-severe) #1 Nutrition Diagnosis Inadequate oral intake Diagnosis Progress(for reassessment Continues documentation) Is patient on ventilator? No Is Patient Ambulatory and/or Out of Bed Yes REE-([place]-[facility] Jeor-ambulatory/OOB) [ 1490.944 NUTR.MSJOOB] Calculation Used for Recommendations [place]-[facility] Additional Notes Protein: 50-59g (1-1.2g/kg) Fluid: 1 ml/kcal Nutrition Intervention Change Diet Order: Advance diet when medically feasible Goal #1 PPN consult Anticipated Discharge Needs: Unable to determine Follow-Up By: 08/06/19 Additional Comments F/U for PPN consult
[2019-08-05] MEDS: PANTOPRAZOLE 40 MG INJ IV SCH ×2 (12:11→22:06)
--- NOTE | 2019-08-05 13:48 | Gastroenterology Progress Note ---
Assessment and Plan # Partial GOO - s/p EGD on 08/03/2019. FINDINGS: * No gross lesions in the duodenum * Circumferential ulcerated area of nodular tissue surrounding the pylorus and in the pyloric channel causing partial gastric outlet obstruction. This was able to be passed with effort. Appearance concerning for possible malignancy. 10 biopsies taken from multiple areas rule out dysplasia. Due to concern for malignancy, dilation not performed. * Moderate atrophic appearing gastritis of the remainder of the stomach * 1 cm hiatal hernia * GE junction at approximately 40 cm from the incisors * Severe LA grade D esophagitis from 25 cm to 40 cm from the incisors, cannot rule out underlying [id number] Matthew's esophagus. Multiple biopsies obtained from multiple levels of the esophagus - lethargic on exam today after receiving sedative prior to IV placement due to agitation. - reports of dark stools overnight. - H/H stable. Rec - clear liquids when patient is more awake. speech eval pending. - continue with PPI IV bid. - if biopsies came back as malignancy, recommend oncology and surgery reconsult with Dr. Rios. - if not tolerating full liquids, will consider attempting EGD with balloon dilation of pylorus if path is benign. Subjective Date of service: 08/05/19 Principal diagnosis: N/V Interval history: Patient agitated and pulled out IV multiple times overnight. Received sedation prior to having IV reinserted today. Lethargic on exam today. Objective - Constitutional Vitals: Temp Pulse Resp BP Pulse Ox 98.0 F 91 H 16 127/46 99 08/05/19 12:29 08/05/19 12:29 08/05/19 12:29 08/05/19 12:29 08/05/19 12:29 General appearance: other (lethargic) - Respiratory Respiratory effort: normal - Cardiovascular Rhythm: regular Heart Sounds: Present: S1 & S2 - Gastrointestinal General gastrointestinal: Present: soft, non-tender, non-distended - Integumentary Integumentary: Present: clear, warm - Labs CBC & Chem 7: 08/05/19 06:50 08/05/19 06:50 Labs: Laboratory Results - last 24 hr 08/05/19 08/05/19 06:50 06:50 WBC 4.0 L RBC 3.25 L Hgb 7.9 L Hct 24.7 L MCV 76 L MCH 24 L MCHC 32 RDW 17.9 H Plt Count 341 Lymph % (Auto) 5.5 L [place] % (Auto) 8.0 H Eos % (Auto) 1.9 Baso % (Auto) 0.5 Lymph # 0.2 L [place] # 0.3 Eos # 0.1 Baso # 0.0 Seg Neutrophils % 84.1 H Seg Neutrophils # 3.4 Sodium 141 Potassium 3.3 L Chloride 105.4 Carbon Dioxide 21 L Anion Gap 18 BUN 10 Creatinine 0.6 L Estimated GFR > 60 BUN/Creatinine Ratio 17 Glucose 98 Calcium 8.0 L
[2019-08-06] MEDS: AMPICILLIN/SULBACTA 1.5GM/50ML 1.5 GM/50 ML BAG IV SCH ×2 (05:15→12:33)
[2019-08-06] MEDS: HALOPERIDOL LACTATE 5 MG/1 ML INJ IM PRN (05:15)
--- NOTE | 2019-08-06 10:16 | Progress Note ---
Assessment and Plan Assessment and plan: Aspiration pneumonia. Continue IV antibiotics per infectious disease. Partial gastric outlet obstruction. Clear liquids per GI. If patient does not tolerate full liquids, GI to consider attempting EGD with balloon dilation of pylorus if path is benign. GI bleed/coffee-ground emesis. EGD revealed no gross lesions in the duodenum but ulcerated area of nodular tissue surrounding the pylorus and in the pyloric channel causing partial gastric outlet obstruction. Appearance was concerning for malignancy. Await biopsy. Melena. As above. GI following Esophagitis/gastritis. Continue PPI IV twice daily. Acute on chronic anemia. Transfuse for hemoglobin less than 7. Candiduria. No treatment necessary per ID. Intellectual disability. Continue supportive care. History Interval history: No new issues overnight. Hospitalist Physical - Constitutional Vitals: Temp Pulse Resp BP Pulse Ox 97.8 F 88 16 111/43 97 08/06/19 05:56 08/06/19 05:56 08/06/19 05:56 08/06/19 05:56 08/06/19 05:56 General appearance: Present: no acute distress, well-nourished - EENT Eyes: Present: PERRL, EOM intact ENT: hearing intact, clear oral mucosa, dentition normal - Neck Neck: Present: supple, normal ROM - Respiratory Respiratory effort: normal Respiratory: bilateral: CTA - Cardiovascular Rhythm: regular Heart Sounds: Present: S1 & S2. Absent: gallop, rub - Extremities Extremities: no ischemia, No edema, Full ROM - Abdominal General gastrointestinal: soft, non-tender, non-distended, normal bowel sounds - Integumentary Integumentary: Present: clear, warm, dry - Neurologic Neurologic: CNII-XII intact, moves all extremities Results - Labs CBC & Chem 7: 08/05/19 06:50 08/05/19 06:50 Labs: Laboratory Last Values WBC 4.0 K/mm3 (4.5-11.0) L 08/05/19 06:50 RBC 3.25 M/mm3 (3.65-5.03) L 08/05/19 06:50 Hgb 7.9 gm/dl (11.8-15.2) L 08/05/19 06:50 Hct 24.7 % (35.5-45.6) L 08/05/19 06:50 MCV 76 fl (84-94) L 08/05/19 06:50 MCH 24 pg (28-32) L 08/05/19 06:50 MCHC 32 % (32-34) 08/05/19 06:50 RDW 17.9 % (13.2-15.2) H 08/05/19 06:50 Plt Count 341 K/mm3 (140-440) 08/05/19 06:50 Lymph % (Auto) 5.5 % (13.4-35.0) L 08/05/19 06:50 [place] % (Auto) 8.0 % (0.0-7.3) H 08/05/19 06:50 Eos % (Auto) 1.9 % (0.0-4.3) 08/05/19 06:50 Baso % (Auto) 0.5 % (0.0-1.8) 08/05/19 06:50 Lymph # 0.2 K/mm3 (1.2-5.4) L 08/05/19 06:50 [place] # 0.3 K/mm3 (0.0-0.8) 08/05/19 06:50 Eos # 0.1 K/mm3 (0.0-0.4) 08/05/19 06:50 Baso # 0.0 K/mm3 (0.0-0.1) 08/05/19 06:50 Seg Neutrophils % 84.1 % (40.0-70.0) H 08/05/19 06:50 Seg Neutrophils # 3.4 K/mm3 (1.8-7.7) 08/05/19 06:50 Sodium 141 mmol/L (137-145) 08/05/19 06:50 Potassium 3.3 mmol/L (3.6-5.0) L 08/05/19 06:50 Chloride 105.4 mmol/L (98-107) 08/05/19 06:50 Carbon Dioxide 21 mmol/L (22-30) L 08/05/19 06:50 Anion Gap 18 mmol/L 08/05/19 06:50 BUN 10 mg/dL (9-20) 08/05/19 06:50 Creatinine 0.6 mg/dL (0.8-1.5) L 08/05/19 06:50 Estimated GFR > 60 ml/min 08/05/19 06:50 BUN/Creatinine Ratio 17 % 08/05/19 06:50 Glucose 98 mg/dL (75-100) 08/05/19 06:50 POC Glucose 146 (70-105) H 07/28/19 11:40 Calcium 8.0 mg/dL (8.4-10.2) L 08/05/19 06:50 Magnesium 1.70 mg/dL (1.7-2.3) 07/30/19 07:35 Total Bilirubin 0.50 mg/dL (0.1-1.2) 07/26/19 22:40 AST 16 units/L (5-40) 07/26/19 22:40 ALT 10 units/L (7-56) 07/26/19 22:40 Alkaline Phosphatase 49 units/L (35-129) 07/26/19 22:40 Total Protein 5.8 g/dL (6.3-8.2) L 07/26/19 22:40 Albumin 1.8 g/dL (3.9-5) L 07/30/19 07:35 Albumin/Globulin Ratio 1.0 % 07/26/19 22:40 Prealbumin 0.043 g/L (0.200-0.400) L 07/30/19 07:35 Lipase 22 units/L (13-60) 07/26/19 22:40 Procalcitonin 0.44 ng/mL (<0.15) 07/28/19 04:08 Urine Color Yellow (Yellow) 07/27/19 09:06 Urine Turbidity Slightly-cloudy (Clear) 07/27/19 09:06 Urine pH 5.0 (5.0-7.0) 07/27/19 09:06 Ur Specific [place] 1.021 (1.003-1.030) 07/27/19 09:06 Urine Protein <15 mg/dl mg/dL (Negative) 07/27/19 09:06 Urine Glucose (UA) Neg mg/dL (Negative) 07/27/19 09:06 Urine Ketones Neg mg/dL (Negative) 07/27/19 09:06 Urine Blood Sm (Negative) 07/27/19 09:06 Urine Nitrite Neg (Negative) 07/27/19 09:06 Urine Bilirubin Neg (Negative) 07/27/19 09:06 Urine Urobilinogen < 2.0 mg/dL (<2.0) 07/27/19 09:06 Ur Leukocyte Esterase Sm (Negative) 07/27/19 09:06 Urine WBC (Auto) 26.0 /HPF (0.0-6.0) H 07/27/19 09:06 Urine RBC (Auto) 32.0 /HPF (0.0-6.0) 07/27/19 09:06 U Epithel Cells (Auto) 6.0 /HPF (0-13.0) 07/27/19 09:06 Hyaline Casts 1 /LPF 07/27/19 09:06 Urine Yeast (Budding) 2+ /HPF 07/27/19 09:06 Active Medications - Current Medications Current Medications: Generic Name Dose Route Start Last Admin Trade Name Freq PRN Reason Stop Dose Admin Acetaminophen 650 mg 07/27/19 02:13 Tylenol [place] Q4H PRN Pain MILD(1-3)/Fever >100.5/[place] Bisacodyl 10 mg 07/27/19 16:51 Dulcolax [place] QDAY PRN Constipation Haloperidol Lactate 5 mg 07/28/19 18:47 08/06/19 05:15 Haldol IM 5 mg Q6H PRN Administration Agitation Hydralazine HCl 5 mg 07/27/19 02:31 Apresoline IV Q6H PRN Hypertension Ampicillin Sodium/Sulbactam Sodium 1.5 gm in 50 mls @ 100 mls/hr 07/27/19 18:00 08/06/19 05:15 Unasyn/Ns 1.5 Gm/50 Ml IV 08/06/19 12:29 100 mls/hr Q6HR EDOURAD Administration Protocol Potassium Chloride/Dextrose/Sod Cl 20 meq in 1,000 mls @ 75 mls/hr 07/29/19 10:00 08/05/19 23:00 D5w/Ns W/Kcl 20meq IV Infused DIRECT EDOUARD Infusion Ondansetron HCl 4 mg 07/27/19 02:13 Zofran IV Q8H PRN Nausea And Vomiting Pantoprazole Sodium 40 mg 07/27/19 10:00 08/05/19 22:06 Protonix IV 40 mg BID EDOUARD Administration Sodium Chloride 10 ml 07/27/19 10:00 08/05/19 22:06 Sodium Chloride Flush Syringe 10 Ml IV 10 ml BID EDOUARD Administration Sodium Chloride 10 ml 07/27/19 02:13 Sodium Chloride Flush Syringe 10 Ml IV PRN PRN LINE FLUSH Nutrition/Malnutrition Assess - Dietary Evaluation Nutrition/Malnutrition Findings: Nutrition Notes Start: 07/31/19 10:27 Freq: Status: Active Protocol: Document 08/02/19 14:36 ROWENA (Rec: 08/02/19 14:44 ROWENA [id number]) Co-Sign 08/02/19 14:36 LP Nutrition Notes Initial or Follow up Reassessment Current Diagnosis Hypertension Other Pertinent Diagnosis Pneu, AMS, gastric ulcers Current Diet NPO Labs/Tests Reviewed Pertinent Medications Reviewed Height 5 ft 5 in Weight 49.5 kg [place] Body Weight (kg) 61.81 BMI 18.1 Weight change and time frame Wt change noted Subjective/Other Information F/U for further assessment and diet advancement. Pt still NPO for EGD. Pt unable to answer assessment questions. Per gastroenterology pt may need PPN. Waiting for consult for PPN. Percent of energy/protein needs met: 0%/0% Burn Absent Trauma Absent Current % PO Negligible Minimum of two criteria No Muscle Mass Mild Depletion (non-severe) #1 Nutrition Diagnosis Inadequate oral intake Diagnosis Progress(for reassessment Continues documentation) Is patient on ventilator? No Is Patient Ambulatory and/or Out of Bed Yes REE-([facility]-ambulatory/OOB) [ 1490.944 NUTR.MSJOOB] Calculation Used for Recommendations [facility] Additional Notes Protein: 50-59g (1-1.2g/kg) Fluid: 1 ml/kcal Nutrition Intervention Change Diet Order: Advance diet when medically feasible Goal #1 PPN consult Anticipated Discharge Needs: Unable to determine Follow-Up By: 08/06/19 Additional Comments F/U for PPN consult
--- NOTE | 2019-08-06 10:51 | Gastroenterology Progress Note ---
Assessment and Plan 1.Partial GOO 2.GI bleed (coffee-ground emesis) 2.acute on chronic anemia 3.weight loss -afebrile -WBC WNL; plt WNL -LFTs WNL -H/H 7.9/24.7-stable -continue to monitor H/H and transfuse as needed; no active signs of bleeding -abd CT 02/15/19-showed a moderate amount of fecal material in the distal colon/rectum, possible fecal impaction, and dilated stomach containing fluid/food material with thickening and edema of the gastric antrum/pylorus (focal gastritis vs PUD?) -EGD on 02/18/2019 showing two large ulcers at the pylorus and edema causing partial gastric outlet obstruction. There was bile flowing back and small opening but scope could not be advanced beyond the pylorus. -Upper GI series 02/20/19 w/o signs of GOO (likely partial GOO and not a complete obstruction) -repeat EGD 08/03/19 showed: FINDINGS: * No gross lesions in the duodenum * Circumferential ulcerated area of nodular tissue surrounding the pylorus and in the pyloric channel causing partial gastric outlet obstruction. This was able to be passed with effort. Appearance concerning for possible malignancy. 10 biopsies taken from multiple areas rule out dysplasia. Due to concern for malignancy, dilation not performed. * Moderate atrophic appearing gastritis of the remainder of the stomach * 1 cm hiatal hernia * GE junction at approximately 40 cm from the incisors * Severe [place] grade D esophagitis from 25 cm to 40 cm from the incisors, cannot rule out underlying [id number] Matthew's esophagus. Multiple biopsies obtained from multiple levels of the esophagus -continue PPI IV BID -tolerating clears -continue supportive care -repeat bx results pending -surgery following -electrolyte management per primary team -will follow path- if negative, consider repeat EGD with balloon dilation; if malignancy, recommend oncology consult, along with possible surgical intervention Subjective Date of service: 08/06/19 Principal diagnosis: N/V Interval history: No acute distress. Tolerating clears but nursing w/o vomiting. Objective - Constitutional Vitals: Temp Pulse Resp BP Pulse Ox 97.8 F 88 16 111/43 97 08/06/19 05:56 08/06/19 05:56 08/06/19 05:56 08/06/19 05:56 08/06/19 05:56 General appearance: no acute distress, cachectic - Respiratory Respiratory effort: normal Respiratory: bilateral: diminished - Cardiovascular Rhythm: regular - Gastrointestinal General gastrointestinal: Present: soft, non-distended, normal bowel sounds - Integumentary Integumentary: Present: warm, dry - Labs CBC & Chem 7: 08/05/19 06:50 08/05/19 06:50
[2019-08-06] MEDS: PANTOPRAZOLE 40 MG INJ IV SCH ×2 (12:31→21:54)
[2019-08-06] MEDS: SUCRALFATE 1 GM/10 ML ORAL LIQD PO SCH ×2 (12:31→18:38)
--- NOTE | 2019-08-06 12:34 | Progress Note ---
Assessment and Plan Partial gastric outlet obstruction, with visible ulcer disease. afebrile, stable. Episodic melena. Awaiting biopsy results to rule out malignance to determine best course of next phase of treatment. Complicated patient as he is unable to express how aggressive he would like treatments to be, also he is severely malnourished and makes any intervention even more risky for complications. will add carafate, and protein shakes to diet to add nutrition. will continue to follow Subjective Date of service: 08/06/19 Narrative: One episode of melena last night. remains stable. Continues to be agitated requiring haldol to be calm enough to reinsert IV line, after he keeps pulling them out. Tolerating clear liquids. Objective Vital Signs - 12hr 08/06/19 05:56 Temperature 97.8 F Pulse Rate 88 Respiratory 16 Rate Blood Pressure 111/43 O2 Sat by Pulse 97 Oximetry - General physical appearance no distress, no pain, cathetic - Abdomen soft, not tender, distended - Neurologic combative - Psychiatric other (unable to assess due to being non verbal) - Labs 08/05/19 06:50 08/05/19 06:50
[2019-08-06] MEDS: D5NS W/KCL 20 MEQ 20 MEQ/1,000 ML BAG IV SCH (18:45)
[2019-08-07] MEDS: SUCRALFATE 1 GM/10 ML ORAL LIQD PO SCH ×4 (00:14→17:28)
[2019-08-07] MEDS: D5NS W/KCL 20 MEQ 20 MEQ/1,000 ML BAG IV SCH (05:36)
[2019-08-07 07:33] LABS: Basophils % (Auto) 0.4 % (0.0-1.8); Eosinophils % (Auto) 0.4 % (0.0-4.3); Hematocrit 24.8 % (35.5-45.6); Hemoglobin 7.8 gm/dl (11.8-15.2); Lymphocytes # (Auto) 0.3 K/mm3 (1.2-5.4); Lymphocytes % (Auto) 4.4 % (13.4-35.0); Mean Corpuscular HGB Conc 32 % (32-34); Mean Corpuscular Volume 75 fl (84-94); Monocytes # (Auto) 0.3 K/mm3 (0.0-0.8); Monocytes % (Auto) 5.4 % (0.0-7.3); Platelet Count 345 K/mm3 (140-440); Red Cell Distribution Width 17.8 % (13.2-15.2)
[2019-08-07 07:43] LABS: BUN/Creatinine Ratio 10; Blood Urea Nitrogen 8 mg/dL (9-20); Calcium 7.5 mg/dL (8.4-10.2); Hemolysis Index 6
[2019-08-07] MEDS: PANTOPRAZOLE 40 MG INJ IV SCH ×2 (09:23→22:38)
[2019-08-07] MEDS: POTASSIUM CHLORIDE 10 MEQ 10 MEQ/100 ML BAG IV SCH ×3 (09:44→12:27)
--- NOTE | 2019-08-07 11:39 | Progress Note ---
Assessment and Plan Assessment and plan: Aspiration pneumonia. Continue IV antibiotics per infectious disease. Partial gastric outlet obstruction. Clear liquids per GI. If patient does not tolerate full liquids, GI to consider attempting EGD with balloon dilation of pylorus if path is benign. GI bleed/coffee-ground emesis. EGD revealed no gross lesions in the duodenum but ulcerated area of nodular tissue surrounding the pylorus and in the pyloric channel causing partial gastric outlet obstruction. Appearance was concerning for malignancy. Await biopsy report Melena. As above. GI following Esophagitis/gastritis. Continue PPI IV twice daily. Acute on chronic anemia. Transfuse for hemoglobin less than 7. Candiduria. No treatment necessary per ID. Intellectual disability. Continue supportive care. History Interval history: patient has been agitated on and off pulling out iv lines Hospitalist Physical - Physical exam Narrative exam: GEN: Not in acute distress, lying in bed, malnourished HEENT: Normocephalic, atraumatic, Neck: supple, No JVD Lungs: Clear to auscultation bilaterally, no wheeze, heart;S1 and S2 reg, no murmurs Abd:soft, non tender, non distended, normal bowel sounds Ext: No edema, no clubbing, no cyanosis Neuro: lethargic, intellectual disability, non verbal, blind - Constitutional Vitals: Temp Pulse Resp BP Pulse Ox 98.3 F 105 H 16 136/65 96 08/07/19 05:10 08/07/19 05:10 08/07/19 05:10 08/07/19 05:10 08/07/19 05:10 General appearance: Present: no acute distress Results - Labs CBC & Chem 7: 08/07/19 06:40 08/08/19 08:06 Labs: Laboratory Last Values WBC 6.2 K/mm3 (4.5-11.0) 08/07/19 06:40 RBC 3.30 M/mm3 (3.65-5.03) L 08/07/19 06:40 Hgb 7.8 gm/dl (11.8-15.2) L 08/07/19 06:40 Hct 24.8 % (35.5-45.6) L 08/07/19 06:40 MCV 75 fl (84-94) L 08/07/19 06:40 MCH 24 pg (28-32) L 08/07/19 06:40 MCHC 32 % (32-34) 08/07/19 06:40 RDW 17.8 % (13.2-15.2) H 08/07/19 06:40 Plt Count 345 K/mm3 (140-440) 08/07/19 06:40 Lymph % (Auto) 4.4 % (13.4-35.0) L 08/07/19 06:40 [place] % (Auto) 5.4 % (0.0-7.3) 08/07/19 06:40 Eos % (Auto) 0.4 % (0.0-4.3) 08/07/19 06:40 Baso % (Auto) 0.4 % (0.0-1.8) 08/07/19 06:40 Lymph # 0.3 K/mm3 (1.2-5.4) L 08/07/19 06:40 [place] # 0.3 K/mm3 (0.0-0.8) 08/07/19 06:40 Eos # 0.0 K/mm3 (0.0-0.4) 08/07/19 06:40 Baso # 0.0 K/mm3 (0.0-0.1) 08/07/19 06:40 Seg Neutrophils % 89.4 % (40.0-70.0) H 08/07/19 06:40 Seg Neutrophils # 5.5 K/mm3 (1.8-7.7) 08/07/19 06:40 Sodium 142 mmol/L (137-145) 08/07/19 06:40 Potassium 2.8 mmol/L (3.6-5.0) L* 08/07/19 06:40 Chloride 108.7 mmol/L (98-107) H 08/07/19 06:40 Carbon Dioxide 21 mmol/L (22-30) L 08/07/19 06:40 Anion Gap 15 mmol/L 08/07/19 06:40 BUN 8 mg/dL (9-20) L 08/07/19 06:40 Creatinine 0.8 mg/dL (0.8-1.5) 08/07/19 06:40 Estimated GFR > 60 ml/min 08/07/19 06:40 BUN/Creatinine Ratio 10 % 08/07/19 06:40 Glucose 144 mg/dL (75-100) H 08/07/19 06:40 POC Glucose 146 (70-105) H 07/28/19 11:40 Calcium 7.5 mg/dL (8.4-10.2) L 08/07/19 06:40 Magnesium 1.60 mg/dL (1.7-2.3) L 08/07/19 06:40 Total Bilirubin 0.50 mg/dL (0.1-1.2) 07/26/19 22:40 AST 16 units/L (5-40) 07/26/19 22:40 ALT 10 units/L (7-56) 07/26/19 22:40 Alkaline Phosphatase 49 units/L (35-129) 07/26/19 22:40 Total Protein 5.8 g/dL (6.3-8.2) L 07/26/19 22:40 Albumin 1.8 g/dL (3.9-5) L 07/30/19 07:35 Albumin/Globulin Ratio 1.0 % 07/26/19 22:40 Prealbumin 0.043 g/L (0.200-0.400) L 07/30/19 07:35 Lipase 22 units/L (13-60) 07/26/19 22:40 Procalcitonin 0.44 ng/mL (<0.15) 07/28/19 04:08 Urine Color Yellow (Yellow) 07/27/19 09:06 Urine Turbidity Slightly-cloudy (Clear) 07/27/19 09:06 Urine pH 5.0 (5.0-7.0) 07/27/19 09:06 Ur Specific [place] 1.021 (1.003-1.030) 07/27/19 09:06 Urine Protein <15 mg/dl mg/dL (Negative) 07/27/19 09:06 Urine Glucose (UA) Neg mg/dL (Negative) 07/27/19 09:06 Urine Ketones Neg mg/dL (Negative) 07/27/19 09:06 Urine Blood Sm (Negative) 07/27/19 09:06 Urine Nitrite Neg (Negative) 07/27/19 09:06 Urine Bilirubin Neg (Negative) 07/27/19 09:06 Urine Urobilinogen < 2.0 mg/dL (<2.0) 07/27/19 09:06 Ur Leukocyte Esterase Sm (Negative) 07/27/19 09:06 Urine WBC (Auto) 26.0 /HPF (0.0-6.0) H 07/27/19 09:06 Urine RBC (Auto) 32.0 /HPF (0.0-6.0) 07/27/19 09:06 U Epithel Cells (Auto) 6.0 /HPF (0-13.0) 07/27/19 09:06 Hyaline Casts 1 /LPF 07/27/19 09:06 Urine Yeast (Budding) 2+ /HPF 07/27/19 09:06 Active Medications - Current Medications Current Medications: Generic Name Dose Route Start Last Admin Trade Name Freq PRN Reason Stop Dose Admin Acetaminophen 650 mg 07/27/19 02:13 Tylenol MI Q4H PRN Pain MILD(1-3)/Fever >100.5/[place] Bisacodyl 10 mg 07/27/19 16:51 Dulcolax MI QDAY PRN Constipation Haloperidol Lactate 5 mg 07/28/19 18:47 08/06/19 05:15 Haldol IM 5 mg Q6H PRN Administration Agitation Hydralazine HCl 5 mg 07/27/19 02:31 Apresoline IV Q6H PRN Hypertension Potassium Chloride/Dextrose/Sod Cl 20 meq in 1,000 mls @ 75 mls/hr 07/29/19 10:00 08/07/19 05:36 D5w/Ns W/Kcl 20meq IV 75 mls/hr DIRECT EDOUARD Administration Potassium Chloride 10 meq in 100 mls @ 100 mls/hr 08/07/19 10:00 08/07/19 11:13 Kcl 10meq/100ml IV 08/07/19 12:59 100 mls/hr Q1H EDOUARD Administration Ondansetron HCl 4 mg 07/27/19 02:13 Zofran IV Q8H PRN Nausea And Vomiting Pantoprazole Sodium 40 mg 07/27/19 10:00 08/07/19 09:23 Protonix IV 40 mg BID EDOUARD Administration Sodium Chloride 10 ml 07/27/19 10:00 08/07/19 09:24 Sodium Chloride Flush Syringe 10 Ml IV 10 ml BID EDOUARD Administration Sodium Chloride 10 ml 07/27/19 02:13 Sodium Chloride Flush Syringe 10 Ml IV PRN PRN LINE FLUSH Sucralfate 1 gm 08/06/19 12:00 08/07/19 05:32 Carafate PO 1 gm Q6HR EDOUARD Administration Nutrition/Malnutrition Assess - Dietary Evaluation Nutrition/Malnutrition Findings: Nutrition Notes Start: 07/31/19 10 :27 Freq: Status: Active Protocol: Document 08/06/19 15:38 OH (Rec: 08/06/19 15:51 OH [id number]) Nutrition Notes Initial or Follow up Reassessment Current Diagnosis Hypertension Other Pertinent Diagnosis Pneu, AMS, gastric ulcers Current Diet Clear liquid Labs/Tests k+ 3.3 Pertinent Medications Haldol Height 5 ft 5 in Weight 47.1 kg [place] Body Weight (kg) 61.81 BMI 17.2 Weight change and time frame Wt change noted Subjective/Other Information f/u: Pt. had GI procedure and staff awaiting biopsy results from procedure. Pt. to cont clear liquid until MD recommends advancing. Pt. trying to get out of bed per RN. RN indicates pt w/o issues of chewing/swallowing. Percent of energy/protein needs met: 5/5% Burn Absent Trauma Absent GI Symptoms None Current % PO Negligible Minimum of two criteria Yes Energy Intake (severe) < or equal to 50% Estimated Energy Requirement > or equal to 5 days Body Fat Depletion Moderate depletion (severe) Muscle Mass Moderate Depletion (severe) #1 Nutrition Diagnosis Inadequate oral intake Diagnosis Progress(for reassessment Continues documentation) Is patient on ventilator? No Is Patient Ambulatory and/or Out of Bed Yes REE-([place]-St. Jeor-ambulatory/OOB) [ 1459.744 NUTR.MSJOOB] Kcal/Kg value to use for calculation 40 Approximate Energy Requirements Using 1884 kcal/Kg Additional Notes Protein: 50-59g (1-1.2g/kg) Fluid: 1 ml/kcal Nutrition Intervention Change Diet Order: Advance diet when medically feasible Goal #1 Diet advancement Goal #2 po intake to exceed 50% Goal #3 Initiation of ONS Anticipated Discharge Needs: Unable to determine at this time Follow-Up By: 08/07/19 Additional Comments f/u for diet advancement
--- NOTE | 2019-08-07 11:55 | Gastroenterology Progress Note ---
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 Current Visit: Yes Status: Acute Plan to address problem: 1.Partial GOO 2.GI bleed (coffee-ground emesis) 2.acute on chronic anemia 3.weight loss -afebrile -WBC WNL; plt WNL -LFTs WNL -H/H 7.9/24.7-stable -continue to monitor H/H and transfuse as needed; no active signs of bleeding -abd CT 02/15/19-showed a moderate amount of fecal material in the distal colon/rectum, possible fecal impaction, and dilated stomach containing fluid/food material with thickening and edema of the gastric antrum/pylorus (focal gastritis vs PUD?) -EGD on 02/18/2019 showing two large ulcers at the pylorus and edema causing partial gastric outlet obstruction. There was bile flowing back and small opening but scope could not be advanced beyond the pylorus. -Upper GI series 02/20/19 w/o signs of GOO (likely partial GOO and not a complete obstruction) -repeat EGD 08/03/19 showed: FINDINGS: * No gross lesions in the duodenum * Circumferential ulcerated area of nodular tissue surrounding the pylorus and in the pyloric channel causing partial gastric outlet obstruction. This was able to be passed with effort. Appearance concerning for possible malignancy. 10 biopsies taken from multiple areas rule out dysplasia. Due to concern for malignancy, dilation not performed. * Moderate atrophic appearing gastritis of the remainder of the stomach * 1 cm hiatal hernia * GE junction at approximately 40 cm from the incisors * Severe LA grade D esophagitis from 25 cm to 40 cm from the incisors, cannot rule out underlying [id number] Matthew's esophagus. Multiple biopsies obtained from multiple levels of the esophagus -continue PPI IV BID -tolerating clears -continue supportive care -repeat bx results pending -surgery following -electrolyte management per primary team -will follow path- if negative, consider repeat EGD with balloon dilation; if malignancy, recommend oncology consult, along with possible surgical intervention - Will get CT to compare to 02/2019 study; if lymphadenopathy, worsening stomach thickening, etc, feel he will need surgical intervention even if a benign non- healing ulcer. Subjective Date of service: 08/07/19 Principal diagnosis: GOO Interval history: There has been no change in the patient's status. He is tolerating sips of liquids, without vomiting. There is no reported blood in the BMs. He remains non-verbal and relatively non-responsive except with stimuli. Objective - Constitutional Vitals: Temp Pulse Resp BP Pulse Ox 98.3 F 105 H 16 136/65 96 08/07/19 05:10 08/07/19 05:10 08/07/19 05:10 08/07/19 05:10 08/07/19 05:10 General appearance: no acute distress - Respiratory Respiratory effort: normal Respiratory: bilateral: CTA - Cardiovascular Rhythm: regular Heart Sounds: Present: S1 & S2 - Gastrointestinal General gastrointestinal: Present: soft, non-tender, distended (Minimal distention, normal bowel sounds) - Labs CBC & Chem 7: 08/07/19 06:40 08/07/19 06:40 Labs: Laboratory Results - last 24 hr 08/07/19 08/07/19 08/07/19 06:40 06:40 06:40 WBC 6.2 RBC 3.30 L Hgb 7.8 L Hct 24.8 L MCV 75 L MCH 24 L MCHC 32 RDW 17.8 H Plt Count 345 Lymph % (Auto) 4.4 L [place] % (Auto) 5.4 Eos % (Auto) 0.4 Baso % (Auto) 0.4 Lymph # 0.3 L [place] # 0.3 Eos # 0.0 Baso # 0.0 Seg Neutrophils % 89.4 H Seg Neutrophils # 5.5 Sodium 142 Potassium 2.8 L* Chloride 108.7 H Carbon Dioxide 21 L Anion Gap 15 BUN 8 L Creatinine 0.8 Estimated GFR > 60 BUN/Creatinine Ratio 10 Glucose 144 H Calcium 7.5 L Magnesium 1.60 L
[2019-08-07] MEDS: HALOPERIDOL LACTATE 5 MG/1 ML INJ IM PRN (17:28)
[2019-08-07] MEDS: SENNOSIDES 8.6 MG TAB PO SCH (22:39)
[2019-08-08] MEDS: HALOPERIDOL LACTATE 5 MG/1 ML INJ IM PRN ×2 (00:50→23:06)
[2019-08-08] MEDS: SUCRALFATE 1 GM/10 ML ORAL LIQD PO SCH ×5 (00:50→23:05)
[2019-08-08 08:52] LABS: BUN/Creatinine Ratio 9; Blood Urea Nitrogen 7 mg/dL (9-20); Calcium 7.8 mg/dL (8.4-10.2); Hemolysis Index 9
[2019-08-08] MEDS ORDERED: MAGNESIUM SULFATE 3 GM in SODIUM CHLORIDE 0.9% 100 ML IV ONE (10:30)
[2019-08-08] MEDS: D5NS W/KCL 20 MEQ 20 MEQ/1,000 ML BAG IV SCH ×2 (10:51→23:06)
[2019-08-08] MEDS: POTASSIUM CHLORIDE 10 MEQ 10 MEQ/100 ML BAG IV SCH ×3 (10:52→14:03)
[2019-08-08] MEDS: PANTOPRAZOLE 40 MG INJ IV SCH ×2 (10:53→23:07)
--- NOTE | 2019-08-08 11:53 | Gastroenterology Progress Note ---
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 Current Visit: Yes Status: Acute Plan to address problem: 1.Partial GOO 2.GI bleed (coffee-ground emesis) 2.acute on chronic anemia 3.weight loss -afebrile -WBC WNL; plt WNL -LFTs WNL -H/H 7.8/24.8-stable -continue to monitor H/H and transfuse as needed; no active signs of bleeding -abd CT 02/15/19-showed a moderate amount of fecal material in the distal colon/rectum, possible fecal impaction, and dilated stomach containing fluid/food material with thickening and edema of the gastric antrum/pylorus (focal gastritis vs PUD?) -EGD on 02/18/2019 showing two large ulcers at the pylorus and edema causing partial gastric outlet obstruction. There was bile flowing back and small opening but scope could not be advanced beyond the pylorus. -Upper GI series 02/20/19 w/o signs of GOO (likely partial GOO and not a complete obstruction) -repeat EGD 08/03/19 showed: FINDINGS: * No gross lesions in the duodenum * Circumferential ulcerated area of nodular tissue surrounding the pylorus and in the pyloric channel causing partial gastric outlet obstruction. This was able to be passed with effort. Appearance concerning for possible malignancy. 10 biopsies taken from multiple areas rule out dysplasia. Due to concern for malignancy, dilation not performed. * Moderate atrophic appearing gastritis of the remainder of the stomach * 1 cm hiatal hernia * GE junction at approximately 40 cm from the incisors * Severe LA grade D esophagitis from 25 cm to 40 cm from the incisors, cannot rule out underlying [id number] Matthew's esophagus. Multiple biopsies obtained from multiple levels of the esophagus -continue PPI IV BID -tolerating clears -continue supportive care -repeat bx results pending -surgery following -electrolyte management per primary team -path results pending- will follow; if +malignancy recommend oncology consult -abd CT pending to compare to 02/2019 study; if lymphadenopathy, worsening stomach thickening, etc, feel he will need surgical intervention even if a benign non-healing ulcer. Subjective Date of service: 08/08/19 Principal diagnosis: GOO Interval history: No acute distress. Tolerating clears. Objective - Constitutional Vitals: Temp Pulse Resp BP Pulse Ox 98.7 F 96 H 20 102/49 100 01/29/20 04:32 08/08/19 04:32 08/08/19 04:32 08/08/19 04:32 08/08/19 04:32 General appearance: no acute distress - Respiratory Respiratory effort: normal Respiratory: bilateral: diminished - Cardiovascular Rhythm: regular - Gastrointestinal General gastrointestinal: Present: soft, normal bowel sounds, other (minimal distention) - Integumentary Integumentary: Present: warm, dry - Labs CBC & Chem 7: 08/07/19 06:40 08/08/19 08:06 Labs: Laboratory Results - last 24 hr 08/08/19 08:06 Sodium 140 Potassium 2.9 L* Chloride 106.6 Carbon Dioxide 22 Anion Gap 14 BUN 7 L Creatinine 0.8 Estimated GFR > 60 BUN/Creatinine Ratio 9 Glucose 125 H Calcium 7.8 L
--- NOTE | 2019-08-08 18:13 | Progress Note ---
Assessment and Plan Assessment and plan: Aspiration pneumonia. Continue IV antibiotics per infectious disease. Partial gastric outlet obstruction. Clear liquids per GI. If patient does not tolerate full liquids, GI to consider attempting EGD with balloon dilation of pylorus if path is benign. CT Abd ordered but awaiting consent from State/Guardian GI bleed/coffee-ground emesis. EGD revealed no gross lesions in the duodenum but ulcerated area of nodular tissue surrounding the pylorus and in the pyloric channel causing partial gastric outlet obstruction. Appearance was concerning for malignancy. Await biopsy report Melena. As above. GI following Esophagitis/gastritis. Continue PPI IV twice daily. Acute on chronic anemia. Transfuse for hemoglobin less than 7. Candiduria. No treatment necessary per ID. Intellectual disability. Continue supportive care. History Interval history: patient has been agitated on and off pulling out iv lines Hospitalist Physical - Physical exam Narrative exam: GEN: Not in acute distress, lying in bed, malnourished HEENT: Normocephalic, atraumatic, Neck: supple, No JVD Lungs: Clear to auscultation bilaterally, no wheeze, heart;S1 and S2 reg, no murmurs Abd:soft, non tender, non distended, normal bowel sounds Ext: No edema, no clubbing, no cyanosis Neuro: lethargic, intellectual disability, non verbal, blind - Constitutional Vitals: Temp Pulse Resp BP Pulse Ox 98.7 F 96 H 20 102/49 100 08/08/19 04:32 08/08/19 04:32 08/08/19 04:32 08/08/19 04:32 08/08/19 04:32 General appearance: Present: no acute distress Results - Labs CBC & Chem 7: 08/07/19 06:40 08/08/19 08:06 Labs: Laboratory Last Values WBC 6.2 K/mm3 (4.5-11.0) 08/07/19 06:40 RBC 3.30 M/mm3 (3.65-5.03) L 08/07/19 06:40 Hgb 7.8 gm/dl (11.8-15.2) L 08/07/19 06:40 Hct 24.8 % (35.5-45.6) L 08/07/19 06:40 MCV 75 fl (84-94) L 08/07/19 06:40 MCH 24 pg (28-32) L 08/07/19 06:40 MCHC 32 % (32-34) 08/07/19 06:40 RDW 17.8 % (13.2-15.2) H 08/07/19 06:40 Plt Count 345 K/mm3 (140-440) 08/07/19 06:40 Lymph % (Auto) 4.4 % (13.4-35.0) L 08/07/19 06:40 [place] % (Auto) 5.4 % (0.0-7.3) 08/07/19 06:40 Eos % (Auto) 0.4 % (0.0-4.3) 08/07/19 06:40 Baso % (Auto) 0.4 % (0.0-1.8) 08/07/19 06:40 Lymph # 0.3 K/mm3 (1.2-5.4) L 08/07/19 06:40 [place] # 0.3 K/mm3 (0.0-0.8) 08/07/19 06:40 Eos # 0.0 K/mm3 (0.0-0.4) 08/07/19 06:40 Baso # 0.0 K/mm3 (0.0-0.1) 08/07/19 06:40 Seg Neutrophils % 89.4 % (40.0-70.0) H 08/07/19 06:40 Seg Neutrophils # 5.5 K/mm3 (1.8-7.7) 08/07/19 06:40 Sodium 140 mmol/L (137-145) 08/08/19 08:06 Potassium 2.9 mmol/L (3.6-5.0) L* 08/08/19 08:06 Chloride 106.6 mmol/L (98-107) 08/08/19 08:06 Carbon Dioxide 22 mmol/L (22-30) 08/08/19 08:06 Anion Gap 14 mmol/L 08/08/19 08:06 BUN 7 mg/dL (9-20) L 08/08/19 08:06 Creatinine 0.8 mg/dL (0.8-1.5) 08/08/19 08:06 Estimated GFR > 60 ml/min 08/08/19 08:06 BUN/Creatinine Ratio 9 % 08/08/19 08:06 Glucose 125 mg/dL (75-100) H 08/08/19 08:06 POC Glucose 146 (70-105) H 07/28/19 11:40 Calcium 7.8 mg/dL (8.4-10.2) L 08/08/19 08:06 Magnesium 1.60 mg/dL (1.7-2.3) L 08/07/19 06:40 Total Bilirubin 0.50 mg/dL (0.1-1.2) 07/26/19 22:40 AST 16 units/L (5-40) 07/26/19 22:40 ALT 10 units/L (7-56) 07/26/19 22:40 Alkaline Phosphatase 49 units/L (35-129) 07/26/19 22:40 Total Protein 5.8 g/dL (6.3-8.2) L 07/26/19 22:40 Albumin 1.8 g/dL (3.9-5) L 07/30/19 07:35 Albumin/Globulin Ratio 1.0 % 07/26/19 22:40 Prealbumin 0.043 g/L (0.200-0.400) L 07/30/19 07:35 Lipase 22 units/L (13-60) 07/26/19 22:40 Procalcitonin 0.44 ng/mL (<0.15) 07/28/19 04:08 Urine Color Yellow (Yellow) 07/27/19 09:06 Urine Turbidity Slightly-cloudy (Clear) 07/27/19 09:06 Urine pH 5.0 (5.0-7.0) 07/27/19 09:06 Ur Specific [place] 1.021 (1.003-1.030) 07/27/19 09:06 Urine Protein <15 mg/dl mg/dL (Negative) 07/27/19 09:06 Urine Glucose (UA) Neg mg/dL (Negative) 07/27/19 09:06 Urine Ketones Neg mg/dL (Negative) 07/27/19 09:06 Urine Blood Sm (Negative) 07/27/19 09:06 Urine Nitrite Neg (Negative) 07/27/19 09:06 Urine Bilirubin Neg (Negative) 07/27/19 09:06 Urine Urobilinogen < 2.0 mg/dL (<2.0) 01/17/20 09:06 Ur Leukocyte Esterase Sm (Negative) 07/27/19 09:06 Urine WBC (Auto) 26.0 /HPF (0.0-6.0) H 07/27/19 09:06 Urine RBC (Auto) 32.0 /HPF (0.0-6.0) 07/27/19 09:06 U Epithel Cells (Auto) 6.0 /HPF (0-13.0) 07/27/19 09:06 Hyaline Casts 1 /LPF 07/27/19 09:06 Urine Yeast (Budding) 2+ /HPF 07/27/19 09:06 Active Medications - Current Medications Current Medications: Generic Name Dose Route Start Last Admin Trade Name Freq PRN Reason Stop Dose Admin Acetaminophen 650 mg 07/27/19 02:13 Tylenol [place] Q4H PRN Pain MILD(1-3)/Fever >100.5/[place] Haloperidol Lactate 5 mg 07/28/19 18:47 08/08/19 00:50 Haldol IM 5 mg Q6H PRN Administration Agitation Hydralazine HCl 5 mg 07/27/19 02:31 Apresoline IV Q6H PRN Hypertension Potassium Chloride/Dextrose/Sod Cl 20 meq in 1,000 mls @ 75 mls/hr 07/29/19 10:00 08/08/19 10:51 D5w/Ns W/Kcl 20meq IV 75 mls/hr DIRECT EDOUARD Administration Ondansetron HCl 4 mg 07/27/19 02:13 Zofran IV Q8H PRN Nausea And Vomiting Pantoprazole Sodium 40 mg 07/27/19 10:00 08/08/19 10:53 Protonix IV 40 mg BID EDOUARD Administration Senna 17.2 mg 08/07/19 22:00 08/07/19 22:39 Senokot PO 17.2 mg QHS EDOUARD Administration Sodium Chloride 10 ml 07/27/19 10:00 08/08/19 10:53 Sodium Chloride Flush Syringe 10 Ml IV 10 ml BID EDOUARD Administration Sodium Chloride 10 ml 07/27/19 02:13 Sodium Chloride Flush Syringe 10 Ml IV PRN PRN LINE FLUSH Sucralfate 1 gm 08/06/19 12:00 08/08/19 14:02 Carafate PO Not Given Q6HR EDOUARD Nutrition/Malnutrition Assess - Dietary Evaluation Nutrition/Malnutrition Findings: Nutrition Notes Start: 07/31/19 10:27 Freq: Status: Active Protocol: Document 08/08/19 10:14 AP (Rec: 08/08/19 11:21 AP [id number]) Co-Sign 08/08/19 10:14 LP Nutrition Notes Initial or Follow up Reassessment Current Diagnosis Hypertension Other Pertinent Diagnosis Pneu, AMS, gastric ulcers Current Diet NPO Labs/Tests K 2.8 BUN 8 BG 144 Pertinent Medications Senna Height 5 ft 5 in Weight 49.8 kg [place] Body Weight (kg) 61.81 BMI 18.2 Weight change and time frame Wt change noted Subjective/Other Information FU for diet advancement. Pt is NPO due to CT. Chart states cl liq. Pt is completely nonverbal. Spoke to Dr. Rios who informed me pt is a [place] of the [place] and unable to give consent for TPN, also pt has previously removed prior tubes/lines. Dr. Rios suggests supplementation with Ensure enlive and monitoring pt PO intakes of cl liq. Percent of energy/protein needs met: 0%/0% Burn Absent Trauma Absent Current % PO Negligible Minimum of two criteria Yes Energy Intake (severe) < or equal to 50% Estimated Energy Requirement > or equal to 5 days Body Fat Depletion Moderate depletion (severe) Muscle Mass Moderate Depletion (severe) #2 Nutrition Diagnosis Malnutrition Etiology Advanced age, AMS, chronic duodenal ulcer As Evidenced by Signs and Symptoms moderate fat and muscle loss, EER <50% for > 5 days #1 Nutrition Diagnosis Inadequate oral intake Diagnosis Progress(for reassessment Continues documentation) Is patient on ventilator? No Is Patient Ambulatory and/or Out of Bed Yes REE-([place]-St. Jeor-ambulatory/OOB) [ 1494.844 NUTR.MSJOOB] Kcal/Kg value to use for calculation 40 Approximate Energy Requirements Using 1992 kcal/Kg Calculation Used for Recommendations [place]-St or Additional Notes Protein: 60-74g (1.2-1.5 g/kg) Fluid: 1 ml/kcal Nutrition Intervention Change Diet Order: Continue current until diet advances when medically feasible Goal #1 Pt meet needs as best as possible while on cl liq and ensure. Goal #2 advance diet when medically feasible Anticipated Discharge Needs: Unable to determine at this time Follow-Up By: 08/09/19 Additional Comments f/u for diet advancement, PO intakes
[2019-08-08] MEDS: SENNOSIDES 8.6 MG TAB PO SCH (23:07)
[2019-08-09] MEDS: SUCRALFATE 1 GM/10 ML ORAL LIQD PO SCH ×3 (06:09→18:02)
[2019-08-09 07:24] LABS: BUN/Creatinine Ratio 10; Blood Urea Nitrogen 5 mg/dL (9-20); Calcium 7.5 mg/dL (8.4-10.2); Hemolysis Index 11
[2019-08-09] MEDS: POTASSIUM CHLORIDE 10 MEQ 10 MEQ/100 ML BAG IV SCH ×6 (08:23→23:25)
[2019-08-09] MEDS: HALOPERIDOL LACTATE 5 MG/1 ML INJ IM PRN ×3 (08:28→21:55)
[2019-08-09] MEDS: PANTOPRAZOLE 40 MG INJ IV SCH ×2 (10:16→21:55)
--- NOTE | 2019-08-09 11:06 | Gastroenterology Progress Note ---
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 Current Visit: Yes Status: Acute Plan to address problem: 1.Partial GOO 2.GI bleed (coffee-ground emesis) 2.acute on chronic anemia 3.weight loss -afebrile -WBC WNL; plt WNL -LFTs WNL -H/H 7.8/24.8; continue to monitor and transfuse as needed; no active signs of bleeding -abd CT 02/15/19-showed a moderate amount of fecal material in the distal colon/rectum, possible fecal impaction, and dilated stomach containing fluid/food material with thickening and edema of the gastric antrum/pylorus (foc al gastritis vs PUD?) -EGD on 02/18/2019 showing two large ulcers at the pylorus and edema causing pa rtial gastric outlet obstruction. There was bile flowing back and small opening but scope could not be advanced beyond the pylorus. -Upper GI series 02/20/19 w/o signs of GOO (likely partial GOO and not a complete obstruction) -repeat EGD 08/03/19 showed: FINDINGS: * No gross lesions in the duodenum * Circumferential ulcerated area of nodular tissue surrounding the pylorus and in the pyloric channel causing partial gastric outlet obstruction. This was able to be passed with effort. Appearance concerning for possible malignancy. 10 biopsies taken from multiple areas rule out dysplasia. Due to concern for malignancy, dilation not performed. * Moderate atrophic appearing gastritis of the remainder of the stomach * 1 cm hiatal hernia * GE junction at approximately 40 cm from the incisors * Severe LA grade D esophagitis from 25 cm to 40 cm from the incisors, cannot rule out underlying [id number] Matthew's esophagus. Multiple biopsies obtained from multiple levels of the esophagus -continue PPI IV BID -continue supportive care -electrolyte management per primary team -preliminary results on repeat biopsies are suggestive of adenocarcinoma -repeat abd CT pending to compare to 02/2019 (mets/lymphadenopathy, worsening stomach thickening, etc) -recommend oncology consult -surgery following for possible surgical intervention (vs palliative care pending oncology recommendations) -no further GI recommendations at this time -will sign off and defer further management to surgery/oncology/primary team. Please call if needed Subjective Date of service: 08/09/19 Principal diagnosis: GOO Interval history: No acute distress. Objective - Constitutional Vitals: Temp Pulse Resp BP Pulse Ox 97.7 F 96 H 16 102/66 98 08/08/19 23:33 08/08/19 23:33 08/08/19 23:33 08/08/19 23:33 08/08/19 23:33 General appearance: no acute distress, other (lethargic) - Respiratory Respiratory effort: normal Respiratory: bilateral: diminished - Cardiovascular Rhythm: regular - Gastrointestinal General gastrointestinal: Present: soft, non-distended, normal bowel sounds - Integumentary Integumentary: Present: warm, dry - Labs CBC & Chem 7: 08/07/19 06:40 08/09/19 06:25 Labs: Laboratory Results - last 24 hr 08/09/19 06:25 Sodium 138 Potassium 2.8 L* Chloride 101.1 Carbon Dioxide 22 Anion Gap 18 BUN 5 L Creatinine 0.5 L Estimated GFR > 60 BUN/Creatinine Ratio 10 Glucose 122 H Calcium 7.5 L Magnesium 2.00
--- NOTE | 2019-08-09 11:54 | Progress Note ---
Assessment and Plan Assessment and plan: Aspiration pneumonia. Continue IV antibiotics per infectious disease. Partial gastric outlet obstruction. Clear liquids per GI. CT Abd ordered but awaiting consent from State[facility] GI bleed/coffee-ground emesis. EGD revealed no gross lesions in the duodenum but ulcerated area of nodular tissue surrounding the pylorus and in the pyloric channel causing partial gastric outlet obstruction. Biopsy suspicious for poorly differentiated adenocarcinoma. Discussed with GI Melena. As above. GI following Esophagitis/gastritis. Continue PPI IV twice daily. Acute on chronic anemia. Transfuse for hemoglobin less than 7. Candiduria. No treatment necessary per ID. Intellectual disability. Continue supportive care. History Interval history: patient has been agitated on and off pulling out iv lines, Preliminary biopsy suspicious for malignancy Hospitalist Physical - Physical exam Narrative exam: GEN: Not in acute distress, lying in bed, malnourished HEENT: Normocephalic, atraumatic, Neck: supple, No JVD Lungs: Clear to auscultation bilaterally, no wheeze, heart;S1 and S2 reg, no murmurs Abd:soft, non tender, non distended, normal bowel sounds Ext: No edema, no clubbing, no cyanosis Neuro: lethargic, intellectual disability, non verbal, blind - Constitutional Vitals: Temp Pulse Resp BP Pulse Ox 97.7 F 96 H 16 102/66 98 08/08/19 23:33 08/08/19 23:33 08/08/19 23:33 08/08/19 23:33 08/08/19 23:33 General appearance: Present: no acute distress Results - Labs CBC & Chem 7: 08/07/19 06:40 08/09/19 16:48 Labs: Laboratory Last Values WBC 6.2 K/mm3 (4.5-11.0) 08/07/19 06:40 RBC 3.30 M/mm3 (3.65-5.03) L 08/07/19 06:40 Hgb 7.8 gm/dl (11.8-15.2) L 08/07/19 06:40 Hct 24.8 % (35.5-45.6) L 08/07/19 06:40 MCV 75 fl (84-94) L 08/07/19 06:40 MCH 24 pg (28-32) L 08/07/19 06:40 MCHC 32 % (32-34) 08/07/19 06:40 RDW 17.8 % (13.2-15.2) H 08/07/19 06:40 Plt Count 345 K/mm3 (140-440) 08/07/19 06:40 Lymph % (Auto) 4.4 % (13.4-35.0) L 08/07/19 06:40 [place] % (Auto) 5.4 % (0.0-7.3) 08/07/19 06:40 Eos % (Auto) 0.4 % (0.0-4.3) 08/07/19 06:40 Baso % (Auto) 0.4 % (0.0-1.8) 08/07/19 06:40 Lymph # 0.3 K/mm3 (1.2-5.4) L 08/07/19 06:40 [place] # 0.3 K/mm3 (0.0-0.8) 08/07/19 06:40 Eos # 0.0 K/mm3 (0.0-0.4) 08/07/19 06:40 Baso # 0.0 K/mm3 (0.0-0.1) 08/07/19 06:40 Seg Neutrophils % 89.4 % (40.0-70.0) H 08/07/19 06:40 Seg Neutrophils # 5.5 K/mm3 (1.8-7.7) 08/07/19 06:40 Sodium 138 mmol/L (137-145) 08/09/19 06:25 Potassium 2.8 mmol/L (3.6-5.0) L* 08/09/19 06:25 Chloride 101.1 mmol/L (98-107) 08/09/19 06:25 Carbon Dioxide 22 mmol/L (22-30) 08/09/19 06:25 Anion Gap 18 mmol/L 08/09/19 06:25 BUN 5 mg/dL (9-20) L 08/09/19 06:25 Creatinine 0.5 mg/dL (0.8-1.5) L 08/09/19 06:25 Estimated GFR > 60 ml/min 08/09/19 06:25 BUN/Creatinine Ratio 10 % 08/09/19 06:25 Glucose 122 mg/dL (75-100) H 08/09/19 06:25 POC Glucose 146 (70-105) H 07/28/19 11:40 Calcium 7.5 mg/dL (8.4-10.2) L 08/09/19 06:25 Magnesium 2.00 mg/dL (1.7-2.3) 08/09/19 06:25 Total Bilirubin 0.50 mg/dL (0.1-1.2) 07/26/19 22:40 AST 16 units/L (5-40) 07/26/19 22:40 ALT 10 units/L (7-56) 07/26/19 22:40 Alkaline Phosphatase 49 units/L (35-129) 07/26/19 22:40 Total Protein 5.8 g/dL (6.3-8.2) L 07/26/19 22:40 Albumin 1.8 g/dL (3.9-5) L 07/30/19 07:35 Albumin/Globulin Ratio 1.0 % 07/26/19 22:40 Prealbumin 0.043 g/L (0.200-0.400) L 07/30/19 07:35 Lipase 22 units/L (13-60) 07/26/19 22:40 Procalcitonin 0.44 ng/mL (<0.15) 07/28/19 04:08 Urine Color Yellow (Yellow) 07/27/19 09:06 Urine Turbidity Slightly-cloudy (Clear) 07/27/19 09:06 Urine pH 5.0 (5.0-7.0) 07/27/19 09:06 Ur Specific [place] 1.021 (1.003-1.030) 07/27/19 09:06 Urine Protein <15 mg/dl mg/dL (Negative) 07/27/19 09:06 Urine Glucose (UA) Neg mg/dL (Negative) 07/27/19 09:06 Urine Ketones Neg mg/dL (Negative) 07/27/19 09:06 Urine Blood Sm (Negative) 07/27/19 09:06 Urine Nitrite Neg (Negative) 07/27/19 09:06 Urine Bilirubin Neg (Negative) 07/27/19 09:06 Urine Urobilinogen < 2.0 mg/dL (<2.0) 07/27/19 09:06 Ur Leukocyte Esterase Sm (Negative) 07/27/19 09:06 Urine WBC (Auto) 26.0 /HPF (0.0-6.0) H 07/27/19 09:06 Urine RBC (Auto) 32.0 /HPF (0.0-6.0) 07/27/19 09:06 U Epithel Cells (Auto) 6.0 /HPF (0-13.0) 07/27/19 09:06 Hyaline Casts 1 /LPF 07/27/19 09:06 Urine Yeast (Budding) 2+ /HPF 07/27/19 09:06 Active Medications - Current Medications Current Medications: Generic Name Dose Route Start Last Admin Trade Name Freq PRN Reason Stop Dose Admin Acetaminophen 650 mg 07/27/19 02:13 Tylenol [place] Q4H PRN Pain MILD(1-3)/Fever >100.5/HUTCHINSON Haloperidol Lactate 5 mg 07/28/19 18:47 08/09/19 08:28 Haldol IM 5 mg Q6H PRN Administration Agitation Hydralazine HCl 5 mg 07/27/19 02:31 Apresoline IV Q6H PRN Hypertension Potassium Chloride/Dextrose/Sod Cl 20 meq in 1,000 mls @ 75 mls/hr 07/29/19 10:00 08/08/19 23:06 D5w/Ns W/Kcl 20meq IV 75 mls/hr DIRECT EDOUARD Administration Potassium Chloride 10 meq in 100 mls @ 100 mls/hr 08/09/19 09:00 08/09/19 11:28 Kcl 10meq/100ml IV 08/09/19 12:59 100 mls/hr Q1H EDOUARD Administration Ondansetron HCl 4 mg 07/27/19 02:13 Zofran IV Q8H PRN Nausea And Vomiting Pantoprazole Sodium 40 mg 07/27/19 10:00 08/09/19 10:16 Protonix IV 40 mg BID EDOUARD Administration Senna 17.2 mg 08/07/19 22:00 08/08/19 23:07 Senokot PO 17.2 mg QHS EDOUARD Administration Sodium Chloride 10 ml 07/27/19 10:00 08/09/19 10:11 Sodium Chloride Flush Syringe 10 Ml IV 10 ml BID EDOUARD Administration Sodium Chloride 10 ml 07/27/19 02:13 Sodium Chloride Flush Syringe 10 Ml IV PRN PRN LINE FLUSH Sucralfate 1 gm 08/06/19 12:00 08/09/19 06:09 Carafate PO 1 gm Q6HR EDOUARD Administration Nutrition/Malnutrition Assess - Dietary Evaluation Nutrition/Malnutrition Findings: Nutrition Notes Start: 07/31/19 10:27 Freq: Status: Active Protocol: Document 08/08/19 10:14 AP (Rec: 08/08/19 11:21 AP [id number]) Co-Sign 08/08/19 10:14 LP Nutrition Notes Initial or Follow up Reassessment Current Diagnosis Hypertension Other Pertinent Diagnosis Pneu, AMS, gastric ulcers Current Diet NPO Labs/Tests K 2.8 BUN 8 BG 144 Pertinent Medications Senna Height 5 ft 5 in Weight 49.8 kg [place] Body Weight (kg) 61.81 BMI 18.2 Weight change and time frame Wt change noted Subjective/Other Information FU for diet advancement. Pt is NPO due to CT. Chart states cl liq. Pt is completely nonverbal. Spoke to Dr. Rios who informed me pt is a [facility] of the [facility] and unable to give consent for TPN, also pt has previously removed prior tubes/lines. Dr. Rios suggests supplementation with Ensure enlive and monitoring pt PO intakes of cl liq. Percent of energy/protein needs met: 0%/0% Burn Absent Trauma Absent Current % PO Negligible Minimum of two criteria Yes Energy Intake (severe) < or equal to 50% Estimated Energy Requirement > or equal to 5 days Body Fat Depletion Moderate depletion (severe) Muscle Mass Moderate Depletion (severe) #2 Nutrition Diagnosis Malnutrition Etiology Advanced age, AMS, chronic duodenal ulcer As Evidenced by Signs and Symptoms moderate fat and muscle loss, EER <50% for > 5 days #1 Nutrition Diagnosis Inadequate oral intake Diagnosis Progress(for reassessment Continues documentation) Is patient on ventilator? No Is Patient Ambulatory and/or Out of Bed Yes REE-([facility]-ambulatory/OOB) [ 1494.844 NUTR.[id number]] Kcal/Kg value to use for calculation 40 Approximate Energy Requirements Using 1992 kcal/Kg Calculation Used for Recommendations [facility] Additional Notes Protein: 60-74g (1.2-1.5 g/kg) Fluid: 1 ml/kcal Nutrition Intervention Change Diet Order: Continue current until diet advances when medically feasible Goal #1 Pt meet needs as best as possible while on cl liq and ensure. Goal #2 advance diet when medically feasible Anticipated Discharge Needs: Unable to determine at this time Follow-Up By: 08/09/19 Additional Comments f/u for diet advancement, PO intakes
--- NOTE | 2019-08-09 12:35 | Progress Note ---
Assessment and Plan Partial gastric outlet obstruction, with visible ulcer disease. afebrile, stable. Episodic melena. Awaiting final biopsy results, pre-srinivasan concerning for malignancy. Complicated patient as he is unable to express how aggressive he would like treatments to be, also he is severely malnourished and makes any intervention even more risky for complications. will continue with protein supplements on liquid tray, and add double portions. will reach out to care facility and have a discussion about treatment options. will continue to follow Subjective Date of service: 08/09/19 Patient Reports: Positive: tolerating liquids well, bowel movement Narrative: no acute events overnight. Per nurse pt is tolerating liquids with no vomiting. He had a dark green stool, still waiting to get CT scan. Objective - General physical appearance no distress - Respiratory normal expansion, normal respiratory effort - Abdomen soft, not tender, not distended - Labs 08/07/19 06:40 08/09/19 06:25 Diabetes panel 08/09/19 Range/Units 06:25 Sodium 138 (137-145) mmol/L Potassium 2.8 L* (3.6-5.0) mmol/L Chloride 101.1 (98-107) mmol/L Carbon Dioxide 22 (22-30) mmol/L BUN 5 L (9-20) mg/dL Creatinine 0.5 L (0.8-1.5) mg/dL Glucose 122 H (75-100) mg/dL Calcium 7.5 L (8.4-10.2) mg/dL Calcium panel 08/09/19 Range/Units 06:25 Calcium 7.5 L (8.4-10.2) mg/dL Pituitary panel 08/09/19 Range/Units 06:25 Sodium 138 (137-145) mmol/L Potassium 2.8 L* (3.6-5.0) mmol/L Chloride 101.1 (98-107) mmol/L Carbon Dioxide 22 (22-30) mmol/L BUN 5 L (9-20) mg/dL Creatinine 0.5 L (0.8-1.5) mg/dL Glucose 122 H (75-100) mg/dL Calcium 7.5 L (8.4-10.2) mg/dL Adrenal panel 08/09/19 Range/Units 06:25 Sodium 138 (137-145) mmol/L Potassium 2.8 L* (3.6-5.0) mmol/L Chloride 101.1 (98-107) mmol/L Carbon Dioxide 22 (22-30) mmol/L BUN 5 L (9-20) mg/dL Creatinine 0.5 L (0.8-1.5) mg/dL Glucose 122 H (75-100) mg/dL Calcium 7.5 L (8.4-10.2) mg/dL
[2019-08-09] MEDS: D5NS W/KCL 20 MEQ 20 MEQ/1,000 ML BAG IV SCH (18:57)
[2019-08-09] MEDS: SENNOSIDES 8.6 MG TAB PO SCH (22:04)
[2019-08-10] MEDS: SUCRALFATE 1 GM/10 ML ORAL LIQD PO SCH ×5 (00:02→23:22)
--- NOTE | 2019-08-10 01:34 | Cat Scan Report ---
CT abdomen pelvis w con INDICATION: weight loss; gastric outlet obstruction. TECHNIQUE: All CT scans at this location are performed using the following dose modulation technique: Automated exposure control. Helical slices were obtained through the abdomen and pelvis. 100 cc of Omnipaque 30 0 is administered. COMPARISON: CT scan dated 02/15/2019 FINDINGS: Study was performed with patient in the right lateral decubitus position. Abdomen: There is airspace opacity noted in the right lung base. There is a right pleural effusion. T here is cholelithiasis. Fluid noted in the stomach. There is some gas noted in the nondependent: No o bstruction is seen. There is edema in the mesentery. No acute abnormality is seen in the spleen or kidneys. No acute abnormality is seen pancreas. The aorta is normal in diameter. Pelvis: There is some mild wall thickening noted in the right colon and sigmoid colon and rectum is n ot specific but could represent colitis. Urinary bladder is distended. IMPRESSION: 1. There is mild edema in the mesentery. There is some wall thickening noted in the right colon sigmoid colon and rectum raising possibility o f colitis. The bowel is relatively collapsed and setting of mesenteric edema this is not a specific f inding. There is no obstruction. Not mentioned above there is some fluid noted in the esophagus indicating reflux There is no free air. Small right pleural effusion. There is airspace opacity noted in the right lung base. Signer Name: Venkata Scott MD Signed: 08/10/2019 1:29 AM Workstation Name: [id number]
[2019-08-10 07:54] LABS: BUN/Creatinine Ratio 12; Blood Urea Nitrogen 6 mg/dL (9-20); Hemolysis Index 14
[2019-08-10] MEDS: PANTOPRAZOLE 40 MG INJ IV SCH ×2 (10:14→21:59)
--- NOTE | 2019-08-10 10:58 | Gastroenterology Progress Note ---
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 Current Visit: Yes Status: Acute Plan to address problem: 1.Partial GOO; likely malignant obstruction at pylorus 2.GI bleed (coffee-ground emesis) 2.acute on chronic anemia 3.weight loss -Path is concerning but not definite - However, even if benign, patient has failed conservative therapy of PPI and repeat dilations - Feel the next step would be operative management (likely Surg Onc), but would recommend EUS first to get a deeper biopsy of the submucosa, as this would affect the surgical approach; the EUS would be at tertiary care center and I will help facilitate if the patient is transferred Subjective Date of service: 08/10/19 Principal diagnosis: GOO Interval history: No acute events overnight. Still tolerating liquids. Path reviewed. Objective - Constitutional Vitals: Temp Pulse Resp BP Pulse Ox 97.6 F 74 20 165/54 97 08/10/19 01:04 08/10/19 01:04 08/10/19 01:04 08/10/19 01:04 08/09/19 16:32 General appearance: no acute distress, temporal muscle wasting - Respiratory Respiratory effort: normal Respiratory: bilateral: CTA - Cardiovascular Rhythm: regular Heart Sounds: Present: S1 & S2 - Gastrointestinal General gastrointestinal: Present: soft, non-tender, non-distended - Labs CBC & Chem 7: 08/07/19 06:40 08/10/19 06:59 Labs: Laboratory Results - last 24 hr 08/09/19 08/10/19 16:48 06:59 Sodium 138 Potassium 3.7 D 4.1 Chloride 100.6 Carbon Dioxide 24 Anion Gap 18 BUN 6 L Creatinine 0.5 L Estimated GFR > 60 BUN/Creatinine Ratio 12 Glucose 125 H Calcium 8.0 L
[2019-08-10] MEDS: HALOPERIDOL LACTATE 5 MG/1 ML INJ IM PRN (12:34)
--- NOTE | 2019-08-10 14:24 | Progress Note ---
Assessment and Plan Assessment and plan: Aspiration pneumonia. Continue IV antibiotics per infectious disease. Partial gastric outlet obstruction. Clear liquids per GI. CT Abd : mild mesenteric edema, mild colon wall thickening GI bleed/coffee-ground emesis. EGD revealed no gross lesions in the duodenum but ulcerated area of nodular tissue surrounding the pylorus and in the pyloric channel causing partial gastric outlet obstruction. Biopsy suspicious for poorly differentiated adenocarcinoma. Discussed with GI Melena. As above. GI following Esophagitis/gastritis. Continue PPI IV twice daily. Acute on chronic anemia. Transfuse for hemoglobin less than 7. Candiduria. No treatment necessary per ID. Intellectual disability. Continue supportive care. History Interval history: patient has been agitated on and off pulling out iv lines, Preliminary biopsy suspicious for malignancy Hospitalist Physical - Physical exam Narrative exam: GEN: Not in acute distress, lying in bed, malnourished HEENT: Normocephalic, atraumatic, Neck: supple, No JVD Lungs: Clear to auscultation bilaterally, no wheeze, heart;S1 and S2 reg, no murmurs Abd:soft, non tender, non distended, normal bowel sounds Ext: No edema, no clubbing, no cyanosis Neuro: lethargic, intellectual disability, non verbal, blind - Constitutional Vitals: Temp Pulse Resp BP Pulse Ox 97.6 F 74 20 165/54 97 08/10/19 01:04 08/10/19 01:04 08/10/19 01:04 08/10/19 01:04 08/09/19 16:32 General appearance: Present: no acute distress Results - Labs CBC & Chem 7: 08/07/19 06:40 08/10/19 06:59 Labs: Laboratory Last Values WBC 6.2 K/mm3 (4.5-11.0) 08/07/19 06:40 RBC 3.30 M/mm3 (3.65-5.03) L 08/07/19 06:40 Hgb 7.8 gm/dl (11.8-15.2) L 08/07/19 06:40 Hct 24.8 % (35.5-45.6) L 08/07/19 06:40 MCV 75 fl (84-94) L 08/07/19 06:40 MCH 24 pg (28-32) L 08/07/19 06:40 MCHC 32 % (32-34) 08/07/19 06:40 RDW 17.8 % (13.2-15.2) H 08/07/19 06:40 Plt Count 345 K/mm3 (140-440) 08/07/19 06:40 Lymph % (Auto) 4.4 % (13.4-35.0) L 08/07/19 06:40 [place] % (Auto) 5.4 % (0.0-7.3) 08/07/19 06:40 Eos % (Auto) 0.4 % (0.0-4.3) 08/07/19 06:40 Baso % (Auto) 0.4 % (0.0-1.8) 08/07/19 06:40 Lymph # 0.3 K/mm3 (1.2-5.4) L 08/07/19 06:40 [place] # 0.3 K/mm3 (0.0-0.8) 08/07/19 06:40 Eos # 0.0 K/mm3 (0.0-0.4) 08/07/19 06:40 Baso # 0.0 K/mm3 (0.0-0.1) 08/07/19 06:40 Seg Neutrophils % 89.4 % (40.0-70.0) H 08/07/19 06:40 Seg Neutrophils # 5.5 K/mm3 (1.8-7.7) 08/07/19 06:40 Sodium 138 mmol/L (137-145) 08/10/19 06:59 Potassium 4.1 mmol/L (3.6-5.0) 08/10/19 06:59 Chloride 100.6 mmol/L (98-107) 08/10/19 06:59 Carbon Dioxide 24 mmol/L (22-30) 08/10/19 06:59 Anion Gap 18 mmol/L 08/10/19 06:59 BUN 6 mg/dL (9-20) L 08/10/19 06:59 Creatinine 0.5 mg/dL (0.8-1.5) L 08/10/19 06:59 Estimated GFR > 60 ml/min 08/10/19 06:59 BUN/Creatinine Ratio 12 % 08/10/19 06:59 Glucose 125 mg/dL (75-100) H 08/10/19 06:59 POC Glucose 146 (70-105) H 07/28/19 11:40 Calcium 8.0 mg/dL (8.4-10.2) L 08/10/19 06:59 Magnesium 2.00 mg/dL (1.7-2.3) 08/09/19 06:25 Total Bilirubin 0.50 mg/dL (0.1-1.2) 07/26/19 22:40 AST 16 units/L (5-40) 07/26/19 22:40 ALT 10 units/L (7-56) 07/26/19 22:40 Alkaline Phosphatase 49 units/L (35-129) 07/26/19 22:40 Total Protein 5.8 g/dL (6.3-8.2) L 07/26/19 22:40 Albumin 1.8 g/dL (3.9-5) L 07/30/19 07:35 Albumin/Globulin Ratio 1.0 % 07/26/19 22:40 Prealbumin 0.043 g/L (0.200-0.400) L 07/30/19 07:35 Lipase 22 units/L (13-60) 07/26/19 22:40 Procalcitonin 0.44 ng/mL (<0.15) 07/28/19 04:08 Urine Color Yellow (Yellow) 07/27/19 09:06 Urine Turbidity Slightly-cloudy (Clear) 07/27/19 09:06 Urine pH 5.0 (5.0-7.0) 07/27/19 09:06 Ur Specific [place] 1.021 (1.003-1.030) 07/27/19 09:06 Urine Protein <15 mg/dl mg/dL (Negative) 07/27/19 09:06 Urine Glucose (UA) Neg mg/dL (Negative) 07/27/19 09:06 Urine Ketones Neg mg/dL (Negative) 07/27/19 09:06 Urine Blood Sm (Negative) 07/27/19 09:06 Urine Nitrite Neg (Negative) 07/27/19 09:06 Urine Bilirubin Neg (Negative) 07/27/19 09:06 Urine Urobilinogen < 2.0 mg/dL (<2.0) 07/27/19 09:06 Ur Leukocyte Esterase Sm (Negative) 07/27/19 09:06 Urine WBC (Auto) 26.0 /HPF (0.0-6.0) H 07/27/19 09:06 Urine RBC (Auto) 32.0 /HPF (0.0-6.0) 07/27/19 09:06 U Epithel Cells (Auto) 6.0 /HPF (0-13.0) 07/27/19 09:06 Hyaline Casts 1 /LPF 07/27/19 09:06 Urine Yeast (Budding) 2+ /HPF 07/27/19 09:06 Active Medications - Current Medications Current Medications: Generic Name Dose Route Start Last Admin Trade Name Freq PRN Reason Stop Dose Admin Acetaminophen 650 mg 07/27/19 02:13 Tylenol [place] Q4H PRN Pain MILD(1-3)/Fever >100.5/H[place]CHINSON Haloperidol Lactate 5 mg 07/28/19 18:47 08/10/19 12:34 Haldol IM 5 mg Q6H PRN Administration Agitation Hydralazine HCl 5 mg 07/27/19 02:31 Apresoline IV Q6H PRN Hypertension Potassium Chloride/Dextrose/Sod Cl 20 meq in 1,000 mls @ 75 mls/hr 07/29/19 10:00 08/09/19 18:57 D5w/Ns W/Kcl 20meq IV 75 mls/hr DIRECT EDOUARD Administration Ondansetron HCl 4 mg 07/27/19 02:13 Zofran IV Q8H PRN Nausea And Vomiting Pantoprazole Sodium 40 mg 07/27/19 10:00 08/10/19 10:14 Protonix IV 40 mg BID EDOUARD Administration Senna 17.2 mg 08/07/19 22:00 08/09/19 22:04 Senokot PO 17.2 mg QHS EDOUARD Administration Sodium Chloride 10 ml 07/27/19 10:00 08/10/19 10:14 Sodium Chloride Flush Syringe 10 Ml IV 10 ml BID EDOUARD Administration Sodium Chloride 10 ml 07/27/19 02:13 Sodium Chloride Flush Syringe 10 Ml IV PRN PRN LINE FLUSH Sucralfate 1 gm 08/06/19 12:00 08/10/19 12:22 Carafate PO 1 gm Q6HR EDOUARD Administration Nutrition/Malnutrition Assess - Dietary Evaluation Nutrition/Malnutrition Findings: Nutrition Notes Start: 07/31/19 10:27 Freq: Status: Active Protocol: Document 08/10/19 13:18 AP (Rec: 08/10/19 13:28 AP [id number]) Co-Sign 08/10/19 13:18 LP Nutrition Notes Initial or Follow up Reassessment Current Diagnosis Hypertension Other Pertinent Diagnosis Pneu, AMS, gastric ulcers/ gastric outlet obstruction, mental retardation Current Diet Cl liq double portions Labs/Tests Reviewed Pertinent Medications D5 w/NS w/KCl at 75ml/hr Height 5 ft 5 in Weight 49.8 kg [place] Body Weight (kg) 61.81 BMI 18.2 Subjective/Other Information FU for diet advancement. Pt is on cl liq. Pt tech, Nino stated pt consumed two ensure at bfast as well as both portions of broth. So far pt has had one ensure for lunch, [place] will make sure he gets his second ensure for lunch. Percent of energy/protein needs met: 100%/100% Burn Absent Trauma Absent GI Symptoms None Current % PO Good (75-100%) Minimum of two criteria Yes Energy Intake (severe) < or equal to 50% Estimated Energy Requirement > or equal to 5 days Body Fat Depletion Moderate depletion (severe) Muscle Mass Moderate Depletion (severe) #2 Nutrition Diagnosis Malnutrition Diagnosis Progress(for reassessment Continues documentation) #1 Diagnosis Progress(for reassessment Improved documentation) Is patient on ventilator? No Is Patient Ambulatory and/or Out of Bed No REE-([facility]-confined to bed) 1386.648 Kcal/Kg value to use for calculation 34 Approximate Energy Requirements Using 1693 kcal/Kg Calculation Used for Recommendations Kcal/kg Additional Notes Protein: 60-74g (1.2-1.5 g/kg) Fluid: 1 ml/kcal Nutrition Intervention Change Diet Order: Continue current until diet advances when medically feasible Add Supplement/Snack (indicate name/kcal Ensure enlive four times a day /protein ) Provides kCal: 1,400 Provides Protein (gm) 60 Goal #1 Pt meet needs as best as possible while on cl liq and ensure QID. Goal #2 advance diet when medically feasible Anticipated Discharge Needs: Unable to determine at this time Follow-Up By: 08/13/19 Additional Comments f/u for diet advancement, PO intakes
--- NOTE | 2019-08-10 15:06 | Progress Note ---
Assessment and Plan partial gastric outlet obstruction with biopsies suspicious for malignancy. Afebrile, stable and tolerating liquids. Per GI due to inconclusive results from bx an EUS would be needed to get further evaluate gastric lesion. EUS cannot be performed at this hospital. I have spoken with Dr. Jesica Bullock at [facility] who is a surgical oncologist and after discussing the case with her she is willing to see and evaluate the patient for definitive treatment. She said an appointment can be made for him at 10am this coming Tuesday at [facility]. [facility] is on diversion until further notice and only accepting trauma, stroke or burn patients. Transferring the patient at this time is not possible. I spoke to Roldan at [facility] yesterday who said that it would be no problem for them to make sure he gets to his appointments. Per nursing documentation he is tolerating over a liter of fluid by mouth daily. Assuming that his care givers will continu e to feed him liquids with liquid protein supplementation to support his nutrition, I seen no clinical reason to keep keep him much longer with the assumption he will be seen at [facility] next week. He should continue the carafate since an ulcer was seen, as well as PPI. He should not be given oral consistency of more than full liquids since the gastric outlet is narrowed. And should be on 3-4 protein shakes daily along with his other liquids. This has been discussed with Veronica Huffman with Case Management. Subjective Date of service: 08/10/19 Narrative: no acute events overnight. Pt is tolerating clear liquids and protein shake supplements without vomiting. Objective - General physical appearance no distress, chronically ill - Respiratory normal expansion, normal respiratory effort - Abdomen soft, not tender, not distended - Labs 08/07/19 06:40 08/10/19 06:59 Diabetes panel 08/09/19 08/10/19 Range/Units 16:48 06:59 Sodium 138 (137-145) mmol/L Potassium 3.7 D 4.1 (3.6-5.0) mmol/L Chloride 100.6 (98-107) mmol/L Carbon Dioxide 24 (22-30) mmol/L BUN 6 L (9-20) mg/dL Creatinine 0.5 L (0.8-1.5) mg/dL Glucose 125 H (75-100) mg/dL Calcium 8.0 L (8.4-10.2) mg/dL Calcium panel 08/10/19 Range/Units 06:59 Calcium 8.0 L (8.4-10.2) mg/dL Pituitary panel 08/09/19 08/10/19 Range/Units 16:48 06:59 Sodium 138 (137-145) mmol/L Potassium 3.7 D 4.1 (3.6-5.0) mmol/L Chloride 100.6 (98-107) mmol/L Carbon Dioxide 24 (22-30) mmol/L BUN 6 L (9-20) mg/dL Creatinine 0.5 L (0.8-1.5) mg/dL Glucose 125 H (75-100) mg/dL Calcium 8.0 L (8.4-10.2) mg/dL Adrenal panel 08/09/19 08/10/19 Range/Units 16:48 06:59 Sodium 138 (137-145) mmol/L Potassium 3.7 D 4.1 (3.6-5.0) mmol/L Chloride 100.6 (98-107) mmol/L Carbon Dioxide 24 (22-30) mmol/L BUN 6 L (9-20) mg/dL Creatinine 0.5 L (0.8-1.5) mg/dL Glucose 125 H (75-100) mg/dL Calcium 8.0 L (8.4-10.2) mg/dL
--- NOTE | 2019-08-10 17:15 | Event Note ---
Date: 08/10/[address] Rios. She states Dr. Bullock willing to evaluate patient as outpatient on Tuesday. 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 To try again on Tuesday.
[2019-08-10] MEDS: SENNOSIDES 8.6 MG TAB PO SCH ×2 (22:41→22:43)
[2019-08-11] MEDS: SUCRALFATE 1 GM/10 ML ORAL LIQD PO SCH ×3 (06:34→18:13)
[2019-08-11] MEDS: PANTOPRAZOLE 40 MG INJ IV SCH (09:04)
--- NOTE | 2019-08-11 09:47 | Progress Note ---
Assessment and Plan Assessment and plan: Aspiration pneumonia. Completed IV antibiotics per infectious disease. Partial gastric outlet obstruction. Clear liquids per GI. CT Abd : mild mesenteric edema, mild colon wall thickening GI bleed/coffee-ground emesis. EGD revealed no gross lesions in the duodenum but ulcerated area of nodular tissue surrounding the pylorus and in the pyloric channel causing partial gastric outlet obstruction. 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 Rios. She states Dr. Bullock willing to evaluate patient as outpatient on Tuesday08/17/19. 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 To try again on Tuesday. Melena. As above. GI following Esophagitis/gastritis. Continue PPI IV twice daily. Acute on chronic anemia. Transfuse for hemoglobin less than 7. Candiduria. No treatment necessary per ID. Intellectual disability. Continue supportive care. History Interval history: patient has been agitated on and off pulling out iv lines, Preliminary biopsy suspicious for malignancy Hospitalist Physical - Physical exam Narrative exam: GEN: Not in acute distress, lying in bed, malnourished HEENT: Normocephalic, atraumatic, Neck: supple, No JVD Lungs: Clear to auscultation bilaterally, no wheeze, heart;S1 and S2 reg, no murmurs Abd:soft, non tender, non distended, normal bowel sounds Ext: No edema, no clubbing, no cyanosis Neuro: lethargic, intellectual disability, non verbal, blind - Constitutional Vitals: Temp Pulse Resp BP Pulse Ox 98 F 105 H 18 144/57 100 08/11/19 06:54 08/11/19 06:54 08/11/19 06:54 08/11/19 06:54 08/11/19 06:54 General appearance: Present: no acute distress Results - Labs CBC & Chem 7: 08/07/19 06:40 08/10/19 06:59 Labs: Laboratory Last Values WBC 6.2 K/mm3 (4.5-11.0) 08/07/19 06:40 RBC 3.30 M/mm3 (3.65-5.03) L 08/07/19 06:40 Hgb 7.8 gm/dl (11.8-15.2) L 08/07/19 06:40 Hct 24.8 % (35.5-45.6) L 08/07/19 06:40 MCV 75 fl (84-94) L 08/07/19 06:40 MCH 24 pg (28-32) L 08/07/19 06:40 MCHC 32 % (32-34) 08/07/19 06:40 RDW 17.8 % (13.2-15.2) H 08/07/19 06:40 Plt Count 345 K/mm3 (140-440) 08/07/19 06:40 Lymph % (Auto) 4.4 % (13.4-35.0) L 08/07/19 06:40 [place] % (Auto) 5.4 % (0.0-7.3) 08/07/19 06:40 Eos % (Auto) 0.4 % (0.0-4.3) 08/07/19 06:40 Baso % (Auto) 0.4 % (0.0-1.8) 08/07/19 06:40 Lymph # 0.3 K/mm3 (1.2-5.4) L 08/07/19 06:40 [place] # 0.3 K/mm3 (0.0-0.8) 08/07/19 06:40 Eos # 0.0 K/mm3 (0.0-0.4) 08/07/19 06:40 Baso # 0.0 K/mm3 (0.0-0.1) 08/07/19 06:40 Seg Neutrophils % 89.4 % (40.0-70.0) H 08/07/19 06:40 Seg Neutrophils # 5.5 K/mm3 (1.8-7.7) 08/07/19 06:40 Sodium 138 mmol/L (137-145) 08/10/19 06:59 Potassium 4.1 mmol/L (3.6-5.0) 08/10/19 06:59 Chloride 100.6 mmol/L (98-107) 08/10/19 06:59 Carbon Dioxide 24 mmol/L (22-30) 08/10/19 06:59 Anion Gap 18 mmol/L 08/10/19 06:59 BUN 6 mg/dL (9-20) L 08/10/19 06:59 Creatinine 0.5 mg/dL (0.8-1.5) L 08/10/19 06:59 Estimated GFR > 60 ml/min 08/10/19 06:59 BUN/Creatinine Ratio 12 % 08/10/19 06:59 Glucose 125 mg/dL (75-100) H 08/10/19 06:59 POC Glucose 146 (70-105) H 07/28/19 11:40 Calcium 8.0 mg/dL (8.4-10.2) L 08/10/19 06:59 Magnesium 2.00 mg/dL (1.7-2.3) 08/09/19 06:25 Total Bilirubin 0.50 mg/dL (0.1-1.2) 07/26/19 22:40 AST 16 units/L (5-40) 07/26/19 22:40 ALT 10 units/L (7-56) 07/26/19 22:40 Alkaline Phosphatase 49 units/L (35-129) 07/26/19 22:40 Total Protein 5.8 g/dL (6.3-8.2) L 07/26/19 22:40 Albumin 1.8 g/dL (3.9-5) L 07/30/19 07:35 Albumin/Globulin Ratio 1.0 % 07/26/19 22:40 Prealbumin 0.043 g/L (0.200-0.400) L 07/30/19 07:35 Lipase 22 units/L (13-60) 07/26/19 22:40 Procalcitonin 0.44 ng/mL (<0.15) 07/28/19 04:08 Urine Color Yellow (Yellow) 07/27/19 09:06 Urine Turbidity Slightly-cloudy (Clear) 07/27/19 09:06 Urine pH 5.0 (5.0-7.0) 07/27/19 09:06 Ur Specific [place] 1.021 (1.003-1.030) 07/27/19 09:06 Urine Protein <15 mg/dl mg/dL (Negative) 07/27/19 09:06 Urine Glucose (UA) Neg mg/dL (Negative) 07/27/19 09:06 Urine Ketones Neg mg/dL (Negative) 07/27/19 09:06 Urine Blood Sm (Negative) 07/27/19 09:06 Urine Nitrite Neg (Negative) 07/27/19 09:06 Urine Bilirubin Neg (Negative) 01/17/20 09:06 Urine Urobilinogen < 2.0 mg/dL (<2.0) 07/27/19 09:06 Ur Leukocyte Esterase Sm (Negative) 07/27/19 09:06 Urine WBC (Auto) 26.0 /HPF (0.0-6.0) H 07/27/19 09:06 Urine RBC (Auto) 32.0 /HPF (0.0-6.0) 07/27/19 09:06 U Epithel Cells (Auto) 6.0 /HPF (0-13.0) 07/27/19 09:06 Hyaline Casts 1 /LPF 07/27/19 09:06 Urine Yeast (Budding) 2+ /HPF 07/27/19 09:06 Active Medications - Current Medications Current Medications: Generic Name Dose Route Start Last Admin Trade Name Freq PRN Reason Stop Dose Admin Acetaminophen 650 mg 07/27/19 02:13 Tylenol VT Q4H PRN Pain MILD(1-3)/Fever >100.5/[place]CHINSON Haloperidol Lactate 5 mg 07/28/19 18:47 08/10/19 12:34 Haldol IM 5 mg Q6H PRN Administration Agitation Hydralazine HCl 5 mg 07/27/19 02:31 Apresoline IV Q6H PRN Hypertension Potassium Chloride/Dextrose/Sod Cl 20 meq in 1,000 mls @ 75 mls/hr 07/29/19 10:00 08/09/19 18:57 D5w/Ns W/Kcl 20meq IV 75 mls/hr DIRECT EDOUARD Administration Ondansetron HCl 4 mg 07/27/19 02:13 Zofran IV Q8H PRN Nausea And Vomiting Pantoprazole Sodium 40 mg 07/27/19 10:00 08/11/19 09:04 Protonix IV 40 mg BID EDOUARD Administration Senna 17.2 mg 08/07/19 22:00 08/10/19 22:43 Senokot PO 17.2 mg QHS EDOUARD Administration Sodium Chloride 10 ml 07/27/19 10:00 08/11/19 09:05 Sodium Chloride Flush Syringe 10 Ml IV 10 ml BID EDOUARD Administration Sodium Chloride 10 ml 07/27/19 02:13 Sodium Chloride Flush Syringe 10 Ml IV PRN PRN LINE FLUSH Sucralfate 1 gm 08/06/19 12:00 08/11/19 06:34 Carafate PO 1 gm Q6HR EDOUARD Administration Nutrition/Malnutrition Assess - Dietary Evaluation Nutrition/Malnutrition Findings: Nutrition Notes Start: 07/31/19 10:27 Freq: Status: Active Protocol: Document 08/10/19 13:18 AP (Rec: 08/10/19 13:28 AP [id number]) Co-Sign 08/10/19 13:18 LP Nutrition Notes Initial or Follow up Reassessment Current Diagnosis Hypertension Other Pertinent Diagnosis Pneu, AMS, gastric ulcers/ gastric outlet obstruction, mental retardation Current Diet Cl liq double portions Labs/Tests Reviewed Pertinent Medications D5 w/NS w/KCl at 75ml/hr Height 5 ft 5 in Weight 49.8 kg [place] Body Weight (kg) 61.81 BMI 18.2 Subjective/Other Information FU for diet advancement. Pt is on cl liq. Pt techNino stated pt consumed two ensure at bfast as well as both portions of broth. So far pt has had one ensure for lunch, [place] will make sure he gets his second ensure for lunch. Percent of energy/protein needs met: 100%/100% Burn Absent Trauma Absent GI Symptoms None Current % PO Good (75-100%) Minimum of two criteria Yes Energy Intake (severe) < or equal to 50% Estimated Energy Requirement > or equal to 5 days Body Fat Depletion Moderate depletion (severe) Muscle Mass Moderate Depletion (severe) #2 Nutrition Diagnosis Malnutrition Diagnosis Progress(for reassessment Continues documentation) #1 Diagnosis Progress(for reassessment Improved documentation) Is patient on ventilator? No Is Patient Ambulatory and/or Out of Bed No REE-([facility]-confined to bed) 1386.648 Kcal/Kg value to use for calculation 34 Approximate Energy Requirements Using 1693 kcal/Kg Calculation Used for Recommendations Kcal/kg Additional Notes Protein: 60-74g (1.2-1.5 g/kg) Fluid: 1 ml/kcal Nutrition Intervention Change Diet Order: Continue current until diet advances when medically feasible Add Supplement/Snack (indicate name/kcal Ensure enlive four times a day /protein ) Provides kCal: 1,400 Provides Protein (gm) 60 Goal #1 Pt meet needs as best as possible while on cl liq and ensure QID. Goal #2 advance diet when medically feasible Anticipated Discharge Needs: Unable to determine at this time Follow-Up By: 08/13/19 Additional Comments f/u for diet advancement, PO intakes
--- NOTE | 2019-08-11 10:34 | Gastroenterology Progress Note ---
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 Subjective Date of service: 08/11/19 Principal diagnosis: GOO Interval history: There has been no change in clinical status. The patient is still tolerating PO, without emesis. He has no melena. Objective - Constitutional Vitals: Temp Pulse Resp BP Pulse Ox 98 F 105 H 18 144/57 100 08/11/19 06:54 08/11/19 06:54 08/11/19 06:54 08/11/19 06:54 08/11/19 06:54 General appearance: no acute distress, cachectic - Respiratory Respiratory effort: normal Respiratory: bilateral: CTA - Cardiovascular Rhythm: regular Heart Sounds: Present: S1 & S2 - Gastrointestinal General gastrointestinal: Present: soft, non-tender, non-distended - Labs CBC & Chem 7: 08/07/19 06:40 08/10/19 06:59
[2019-08-11] MEDS ORDERED: PANTOPRAZOLE 40 MG TAB PO SCH (22:00)
[2019-08-11] MEDS: LANSOPRAZOLE 30 MG SOLUTAB FEEDTUBE SCH (22:03)
[2019-08-11] MEDS: SENNOSIDES 8.6 MG TAB PO SCH (22:03)
[2019-08-12] MEDS: SUCRALFATE 1 GM/10 ML ORAL LIQD PO SCH ×5 (00:48→23:57)
[2019-08-12 07:23] LABS: BUN/Creatinine Ratio 15; Blood Urea Nitrogen 9 mg/dL (9-20); Calcium 8.1 mg/dL (8.4-10.2); Hemolysis Index 2
[2019-08-12] MEDS: LANSOPRAZOLE 30 MG SOLUTAB FEEDTUBE SCH ×2 (10:09→21:18)
--- NOTE | 2019-08-12 10:19 | Progress Note ---
Assessment and Plan Assessment and plan: Aspiration pneumonia. Completed IV antibiotics per infectious disease. Partial gastric outlet obstruction. Clear liquids per GI. CT Abd : mild mesenteric edema, mild colon wall thickening GI bleed/coffee-ground emesis. EGD revealed no gross lesions in the duodenum but ulcerated area of nodular tissue surrounding the pylorus and in the pyloric channel causing partial gastric outlet obstruction. 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 Rios. She states Dr. Bullock willing to evaluate patient as outpatient on Tuesday08/17/19. 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 To try again on Tuesday. Melena. As above. GI was following, now signed off Esophagitis/gastritis. Continue PPI IV twice daily. Hypokalemia Replace and recheck in am Acute on chronic anemia. Transfuse for hemoglobin less than 7. Candiduria. No treatment necessary per ID. Intellectual disability. Continue supportive care. History Interval history: patient has been agitated on and off pulling out iv lines, Preliminary biopsy suspicious for malignancy Hospitalist Physical - Physical exam Narrative exam: GEN: Not in acute distress, lying in bed, malnourished HEENT: Normocephalic, atraumatic, Neck: supple, No JVD Lungs: Clear to auscultation bilaterally, no wheeze, heart;S1 and S2 reg, no murmurs Abd:soft, non tender, non distended, normal bowel sounds Ext: No edema, no clubbing, no cyanosis Neuro: lethargic, intellectual disability, non verbal, blind - Constitutional Vitals: Temp Pulse Resp BP Pulse Ox 97.7 F 101 H 20 111/46 99 08/12/19 05:56 08/12/19 05:56 08/12/19 05:56 08/12/19 05:56 08/12/19 05:56 General appearance: Present: no acute distress Results - Labs CBC & Chem 7: 08/07/19 06:40 08/12/19 06:38 Labs: Laboratory Last Values WBC 6.2 K/mm3 (4.5-11.0) 08/07/19 06:40 RBC 3.30 M/mm3 (3.65-5.03) L 08/07/19 06:40 Hgb 7.8 gm/dl (11.8-15.2) L 08/07/19 06:40 Hct 24.8 % (35.5-45.6) L 08/07/19 06:40 MCV 75 fl (84-94) L 08/07/19 06:40 MCH 24 pg (28-32) L 08/07/19 06:40 MCHC 32 % (32-34) 08/07/19 06:40 RDW 17.8 % (13.2-15.2) H 08/07/19 06:40 Plt Count 345 K/mm3 (140-440) 08/07/19 06:40 Lymph % (Auto) 4.4 % (13.4-35.0) L 08/07/19 06:40 [place] % (Auto) 5.4 % (0.0-7.3) 08/07/19 06:40 Eos % (Auto) 0.4 % (0.0-4.3) 08/07/19 06:40 Baso % (Auto) 0.4 % (0.0-1.8) 08/07/19 06:40 Lymph # 0.3 K/mm3 (1.2-5.4) L 08/07/19 06:40 [place] # 0.3 K/mm3 (0.0-0.8) 08/07/19 06:40 Eos # 0.0 K/mm3 (0.0-0.4) 08/07/19 06:40 Baso # 0.0 K/mm3 (0.0-0.1) 08/07/19 06:40 Seg Neutrophils % 89.4 % (40.0-70.0) H 08/07/19 06:40 Seg Neutrophils # 5.5 K/mm3 (1.8-7.7) 08/07/19 06:40 Sodium 138 mmol/L (137-145) 08/12/19 06:38 Potassium 3.1 mmol/L (3.6-5.0) L D 08/12/19 06:38 Chloride 98.0 mmol/L (98-107) 08/12/19 06:38 Carbon Dioxide 28 mmol/L (22-30) 08/12/19 06:38 Anion Gap 15 mmol/L 08/12/19 06:38 BUN 9 mg/dL (9-20) 08/12/19 06:38 Creatinine 0.6 mg/dL (0.8-1.5) L 08/12/19 06:38 Estimated GFR > 60 ml/min 08/12/19 06:38 BUN/Creatinine Ratio 15 % 08/12/19 06:38 Glucose 118 mg/dL (75-100) H 08/12/19 06:38 POC Glucose 146 (70-105) H 07/28/19 11:40 Calcium 8.1 mg/dL (8.4-10.2) L 08/12/19 06:38 Magnesium 2.00 mg/dL (1.7-2.3) 08/09/19 06:25 Total Bilirubin 0.50 mg/dL (0.1-1.2) 07/26/19 22:40 AST 16 units/L (5-40) 07/26/19 22:40 ALT 10 units/L (7-56) 07/26/19 22:40 Alkaline Phosphatase 49 units/L (35-129) 07/26/19 22:40 Total Protein 5.8 g/dL (6.3-8.2) L 07/26/19 22:40 Albumin 1.8 g/dL (3.9-5) L 07/30/19 07:35 Albumin/Globulin Ratio 1.0 % 07/26/19 22:40 Prealbumin 0.043 g/L (0.200-0.400) L 07/30/19 07:35 Lipase 22 units/L (13-60) 07/26/19 22:40 Procalcitonin 0.44 ng/mL (<0.15) 07/28/19 04:08 Urine Color Yellow (Yellow) 07/27/19 09:06 Urine Turbidity Slightly-cloudy (Clear) 07/27/19 09:06 Urine pH 5.0 (5.0-7.0) 07/27/19 09:06 Ur Specific [place] 1.021 (1.003-1.030) 07/27/19 09:06 Urine Protein <15 mg/dl mg/dL (Negative) 07/27/19 09:06 Urine Glucose (UA) Neg mg/dL (Negative) 07/27/19 09:06 Urine Ketones Neg mg/dL (Negative) 07/27/19 09:06 Urine Blood Sm (Negative) 07/27/19 09:06 Urine Nitrite Neg (Negative) 07/27/19 09:06 Urine Bilirubin Neg (Negative) 07/27/19 09:06 Urine Urobilinogen < 2.0 mg/dL (<2.0) 07/27/19 09:06 Ur Leukocyte Esterase Sm (Negative) 07/27/19 09:06 Urine WBC (Auto) 26.0 /HPF (0.0-6.0) H 07/27/19 09:06 Urine RBC (Auto) 32.0 /HPF (0.0-6.0) 07/27/19 09:06 U Epithel Cells (Auto) 6.0 /HPF (0-13.0) 07/27/19 09:06 Hyaline Casts 1 /LPF 07/27/19 09:06 Urine Yeast (Budding) 2+ /HPF 07/27/19 09:06 Active Medications - Current Medications Current Medications: Generic Name Dose Route Start Last Admin Trade Name Freq PRN Reason Stop Dose Admin Acetaminophen 650 mg 07/27/19 02:13 Tylenol ID Q4H PRN Pain MILD(1-3)/Fever >100.5/[place]CHINSON Haloperidol Lactate 5 mg 07/28/19 18:47 08/10/19 12:34 Haldol IM 5 mg Q6H PRN Administration Agitation Hydralazine HCl 5 mg 07/27/19 02:31 Apresoline IV Q6H PRN Hypertension Potassium Chloride/Dextrose/Sod Cl 20 meq in 1,000 mls @ 75 mls/hr 07/29/19 10:00 08/09/19 18:57 D5w/Ns W/Kcl 20meq IV 75 mls/hr DIRECT EDOUARD Administration Lansoprazole 30 mg 08/11/19 22:00 08/12/19 10:09 Prevacid Solutab FEEDTUBE 30 mg BID EDOUARD Administration Ondansetron HCl 4 mg 07/27/19 02:13 Zofran IV Q8H PRN Nausea And Vomiting Senna 17.2 mg 08/07/19 22:00 08/11/19 22:03 Senokot PO 17.2 mg QHS EDOUARD Administration Sodium Chloride 10 ml 07/27/19 10:00 08/12/19 10:10 Sodium Chloride Flush Syringe 10 Ml IV Not Given BID EDOUARD Sodium Chloride 10 ml 07/27/19 02:13 Sodium Chloride Flush Syringe 10 Ml IV PRN PRN LINE FLUSH Sucralfate 1 gm 08/06/19 12:00 08/12/19 05:50 Carafate PO 1 gm Q6HR EDOUARD Administration Nutrition/Malnutrition Assess - Dietary Evaluation Nutrition/Malnutrition Findings: Nutrition Notes Start: 07/31/19 10:27 Freq: Status: Active Protocol: Document 08/10/19 13:18 AP (Rec: 08/10/19 13:28 AP [id number]) Co-Sign 08/10/19 13:18 LP Nutrition Notes Initial or Follow up Reassessment Current Diagnosis Hypertension Other Pertinent Diagnosis Pneu, AMS, gastric ulcers/ gastric outlet obstruction, mental retardation Current Diet Cl liq double portions Labs/Tests Reviewed Pertinent Medications D5 w/NS w/KCl at 75ml/hr Height 5 ft 5 in Weight 49.8 kg [place] Body Weight (kg) 61.81 BMI 18.2 Subjective/Other Information FU for diet advancement. Pt is on cl liq. Pt techNino stated pt consumed two ensure at bfast as well as both portions of broth. So far pt has had one ensure for lunch, [place] will make sure he gets his second ensure for lunch. Percent of energy/protein needs met: 100%/100% Burn Absent Trauma Absent GI Symptoms None Current % PO Good (75-100%) Minimum of two criteria Yes Energy Intake (severe) < or equal to 50% Estimated Energy Requirement > or equal to 5 days Body Fat Depletion Moderate depletion (severe) Muscle Mass Moderate Depletion (severe) #2 Nutrition Diagnosis Malnutrition Diagnosis Progress(for reassessment Continues documentation) #1 Diagnosis Progress(for reassessment Improved documentation) Is patient on ventilator? No Is Patient Ambulatory and/or Out of Bed No REE-([place]-confined to bed) 1386.648 Kcal/Kg value to use for calculation 34 Approximate Energy Requirements Using 1693 kcal/Kg Calculation Used for Recommendations Kcal/kg Additional Notes Protein: 60-74g (1.2-1.5 g/kg) Fluid: 1 ml/kcal Nutrition Intervention Change Diet Order: Continue current until diet advances when medically feasible Add Supplement/Snack (indicate name/kcal Ensure enlive four times a day /protein ) Provides kCal: 1,400 Provides Protein (gm) 60 Goal #1 Pt meet needs as best as possible while on cl liq and ensure QID. Goal #2 advance diet when medically feasible Anticipated Discharge Needs: Unable to determine at this time Follow-Up By: 08/13/19 Additional Comments f/u for diet advancement, PO intakes
[2019-08-12] MEDS: POTASSIUM CHLORIDE 20 MEQ PACKET PO SCH ×3 (12:32→21:18)
[2019-08-12] MEDS: SENNOSIDES 8.6 MG TAB PO SCH (21:19)
[2019-08-12] MEDS: D5NS W/KCL 20 MEQ 20 MEQ/1,000 ML BAG IV SCH (23:57)
[2019-08-13] MEDS: SUCRALFATE 1 GM/10 ML ORAL LIQD PO SCH ×2 (05:08→13:13)
[2019-08-13 07:53] LABS: BUN/Creatinine Ratio 20; Blood Urea Nitrogen 12 mg/dL (9-20); Calcium 7.8 mg/dL (8.4-10.2); Hemolysis Index 54
[2019-08-13] MEDS: LANSOPRAZOLE 30 MG SOLUTAB FEEDTUBE SCH (10:01)
[2019-08-13 12:53] VITALS: BP 128/56
[2019-08-13] MEDS: D5NS W/KCL 20 MEQ 20 MEQ/1,000 ML BAG IV SCH (14:45)
--- NOTE | 2019-08-13 14:59 | Discharge Summary ---
Providers - Providers Date of Admission: 07/27/19 02:48 Date of discharge: 08/13/19 Attending physician: DEMETRIO RODRÍGUEZ 07/27/19 02:00 Consult to Physician [CONS] Routine Comment: Consulting Provider: ABNER CARTER Physician Instructions: Reason For Exam: gi bleed, anemia 07/27/19 10:27 Consult to Physician [CONS] Routine Comment: Consulting Provider: KAYLEIGH DYSON Physician Instructions: Reason For Exam: Aspiration pneumonia, UTI, poss sepsis 07/28/19 10:42 Consult to Physician [CONS] Routine Comment: Consulting Provider: ARUN SNYDER Physician Instructions: Reason For Exam: Poss gastric outlet obstruction 07/30/19 07:34 Consult to Case Management [CONS] Routine Services Needed at Discharge: Record Searcher Notified:: cm 07/30/19 13:36 Consult to Dietitian/Nutrition [CONS] Routine Physician Instructions: Reason For Exam: Reason for Consult: Malnutrition 08/01/19 10:36 Physical Therapy Evaluation and Treat [CONS] Routine Comment: Reason For Exam: generalized weakness 08/01/19 16:09 Consult to Dietitian/Nutrition [CONS] Routine Physician Instructions: Reason For Exam: Reason for Consult: Pt needs oral supplement Primary care physician: YOKE PRESSER Hospitalization Condition: Fair Disposition: DC-01 TO HOME OR SELFCARE Core Measure Documentation - Palliative Care Palliative Care/ Comfort Measures: Not Applicable Exam - Constitutional Vitals: Temp Pulse Resp BP Pulse Ox 98.2 F 96 H 18 128/56 92 08/13/19 11:24 08/13/19 11:24 08/13/19 11:24 08/13/19 11:24 08/13/19 11:24 Plan Activity: no restrictions Diet: other (Clear liquid diet) Plan of Treatment: 1.Follow up with PCP in 1 week. 2.Follow up with Dr. Jesica Bullock Office on Tuesday08/17/2019 Follow up with: PRIMARY CARE, [Primary Care Provider] - 7 Days Prescriptions: Sucralfate [Carafate] 1 gm PO Q6HR 30 Days oral.liqd Lansoprazole Solutab [Prevacid Solutab] 30 mg FEEDTUBE BID #30 tab.baldev
== END 2019-08-13 18:20 | disposition home health service (06) | DRG 374 ==
LOC: ED 20:54 → 2B-ACE 07-27 02:48 → 3A 07-27 08:35
PROVIDERS: ADMIT Internal Medicine; ATTEND Internal Medicine
PROC: 0DB78ZX Excision of Stomach, Pylorus, Via Natural or Artificial Opening Endoscopic, Diagnostic (ICD-10-PCS; principal; 2019-08-03)
PROC: 0DB38ZX Excision of Lower Esophagus, Via Natural or Artificial Opening Endoscopic, Diagnostic (ICD-10-PCS; 2019-08-03)
DX: C16.4 Malignant neoplasm of pylorus (principal); K26.4 Chronic or unspecified duodenal ulcer with hemorrhage; J69.0 Pneumonitis due to inhalation of food and vomit; E41 Nutritional marasmus; K25.4 Chronic or unspecified gastric ulcer with hemorrhage; H40.9 Unspecified glaucoma; E87.6 Hypokalemia; K31.1 Adult hypertrophic pyloric stenosis; I10 Essential (primary) hypertension; H54.7 Unspecified visual loss; F79 Unspecified intellectual disabilities; R47.02 Dysphasia; N40.0 Benign prostatic hyperplasia without lower urinary tract symptoms; R82.81 Pyuria; R31.9 Hematuria, unspecified; K44.9 Diaphragmatic hernia without obstruction or gangrene; K20.8 Other esophagitis; Z82.49 Family history of ischemic heart disease and other diseases of the circulatory system; Z87.442 Personal history of urinary calculi; Z68.1 Body mass index [BMI] 19.9 or less, adult
CPT/HCPCS: 36415; 74022; 74177; 80048; 80053; 81001; 82040; 82962; 83690; 83735; 84132; 84134; 84145; 85014; 85018; 85025; 85027; 87086; 87116; 88305; 88312; 88341; 88342; G0378; C9113; J0295; J0692; J1630; J2060; J2543; J2704; J3475; J3480; J7030; Q9967